=== PATIENT | female | born 1940 | race Caucasian/White ===

== ENCOUNTER → 2017-06-24 07:47 | Outpatient (CLI) | payer MEDICARE, SELFPAY ==
[2017-06-24 08:13] LABS: Basophils % 0.3 % (0.1-2.0); Eosinophils # 0.2 K/mm3 (0.0-0.4); Hematocrit 38.2 % (37.0-47.0); Hemoglobin 12.3 g/dL (12.2-16.2); Lymphocytes # 2.7 K/mm3 (0.7-4.5); Lymphocytes % 34.2 K/mm3 (10-50); Mean Corpuscular HGB Conc 32.1 g/dL (31.8-35.4); Mean Corpuscular Hemoglobin 31.5 pg (27.0-31.2); Monocytes # 0.5 K/mm3 (0.1-1.0); Monocytes % 6.3 % (1.7-9.3); Neutrophils # 4.4 K/mm3 (1.8-7.8); Neutrophils % 57.2 % (37.0-80.0); Platelet Count 268 K/mm3 (142-424); Red Cell Distribution Width 13.4 % (11.5-17.5); White Blood Count 7.7 K/mm3 (4.8-10.8)
[2017-06-24 10:32] LABS: Alanine Aminotransferase 27 U/L (12-78); Albumin Level 3.8 gm/dL (3.4-5.0); Albumin/Globulin Ratio 1.3 (1.1-1.8); Alkaline Phosphatase 91 U/L (46-116); Anion Gap 12.6 mEq/L (5-15); Aspartate Amino Transferase 17 U/L (15-37); Bilirubin,Total 1.5 mg/dL (0.2-1.0); Blood Urea Nitrogen 22 mg/dL (7-18); Calcium 8.9 mg/dL (8.5-10.1); Carbon Dioxide 27 mmol/L (21.0-32.0); Chloride 108 mmol/L (98-107); Chol/HDL Ratio 1.9 (1-3.5); Cholesterol 181 mg/dL (140-200); Creatinine,Serum 1.13 mg/dL (0.55-1.02); Estimated Glomerular Filt Rate 47 ml/min (>60); GFR (African American) 56 ML/MIN (>60); Glucose 84 mg/dL (74-106); HDL Cholesterol 96 mg/dL (29-89); LDL Cholesterol 67 mg/dL (0-130); Potassium 4.6 mmoL/L (3.5-5.1); Sodium 143 mmol/L (136-145); Thyroid Stimulating Hormone 1.26 uIU/ml (0.358-3.740); Total Protein,Serum 6.8 gm/dL (6.4-8.2); Triglycerides 91 mg/dL (30-200); VLDL Cholesterol 18 mg/dL (0-40)
== END ==
PROVIDERS: Visit Provider Family Medicine
DX: E03.9 Hypothyroidism, unspecified (principal); E78.2 Mixed hyperlipidemia; I10 Essential (primary) hypertension
CPT/HCPCS: 36415; 80053; 80061; 84443; 85025

== ENCOUNTER → 2017-12-23 08:03 | Outpatient (CLI) | payer MEDICARE, SELFPAY ==
[2017-12-23 08:47] LABS: Basophils % 0.5 % (0.1-2.0); Eosinophils # 0.1 K/mm3 (0.0-0.4); Eosinophils % 1.9 % (0.1-12.0); Hematocrit 36.7 % (37.0-47.0); Hemoglobin 11.8 g/dL (12.2-16.2); Lymphocytes # 2.6 K/mm3 (0.7-4.5); Lymphocytes % 37.8 K/mm3 (10-50); Mean Corpuscular Hemoglobin 31.7 pg (27.0-31.2); Monocytes # 0.4 K/mm3 (0.1-1.0); Monocytes % 6.5 % (1.7-9.3); Neutrophils # 3.7 K/mm3 (1.8-7.8); Neutrophils % 53.4 % (37.0-80.0); Platelet Count 288 K/mm3 (142-424); Red Blood Count 3.71 M/mm3 (4.20-5.40); Red Cell Distribution Width 13.4 % (11.5-17.5); White Blood Count 6.8 K/mm3 (4.8-10.8)
[2017-12-23 09:50] LABS: Alanine Aminotransferase 25 U/L (12-78); Albumin Level 3.9 gm/dL (3.4-5.0); Albumin/Globulin Ratio 1.3 (1.1-1.8); Alkaline Phosphatase 76 U/L (46-116); Anion Gap 12.4 mEq/L (5-15); Aspartate Amino Transferase 13 U/L (15-37); Bilirubin,Total 1.3 mg/dL (0.2-1.0); Blood Urea Nitrogen 30 mg/dL (7-18); Calcium 9.3 mg/dL (8.5-10.1); Carbon Dioxide 26 mmol/L (21.0-32.0); Chloride 108 mmol/L (98-107); Cholesterol 175 mg/dL (140-200); Creatinine,Serum 1.45 mg/dL (0.55-1.02); Estimated Glomerular Filt Rate 35 ml/min (>60); GFR (African American) 42 ML/MIN (>60); Globulin 2.9 gm/dl (1.3-3.2); Glucose 97 mg/dL (74-106); HDL Cholesterol 88 mg/dL (29-89); LDL Cholesterol 64 mg/dL (0-130); Potassium 4.4 mmoL/L (3.5-5.1); Sodium 142 mmol/L (136-145); Thyroid Stimulating Hormone 1.95 uIU/ml (0.358-3.740); Total Protein,Serum 6.8 gm/dL (6.4-8.2); Triglycerides 114 mg/dL (30-200); VLDL Cholesterol 23 mg/dL (0-40)
== END ==
PROVIDERS: PCP Family Medicine; Visit Provider Family Medicine
DX: E03.9 Hypothyroidism, unspecified (principal); E78.2 Mixed hyperlipidemia; I10 Essential (primary) hypertension
CPT/HCPCS: 36415; 80053; 80061; 84443; 85025

== ENCOUNTER → 2018-06-21 07:52 | Outpatient (CLI) | payer MEDICARE, SELFPAY ==
[2018-06-21 08:45] LABS: Alanine Aminotransferase 18 U/L (12-78); Albumin Level 3.6 gm/dL (3.4-5.0); Albumin/Globulin Ratio 1.5 (1.1-1.8); Alkaline Phosphatase 73 U/L (46-116); Anion Gap 12.9 mEq/L (5-15); Aspartate Amino Transferase 13 U/L (15-37); Bilirubin,Total 1.4 mg/dL (0.2-1.0); Blood Urea Nitrogen 25 mg/dL (7-18); Calcium 8.8 mg/dL (8.5-10.1); Carbon Dioxide 24 mmol/L (21.0-32.0); Chloride 103 mmol/L (98-107); Chol/HDL Ratio 2.2 (1-3.5); Cholesterol 164 mg/dL (140-200); Estimated Glomerular Filt Rate 36 ml/min (>60); GFR (African American) 44 ML/MIN (>60); Globulin 2.4 gm/dl (1.3-3.2); Glucose 96 mg/dL (74-106); HDL Cholesterol 73 mg/dL (29-89); LDL Cholesterol 71 mg/dL (0-130); Potassium 3.9 mmoL/L (3.5-5.1); Sodium 136 mmol/L (136-145); Triglycerides 99 mg/dL (30-200); VLDL Cholesterol 20 mg/dL (0-40)
[2018-06-21 09:11] LABS: Basophils % 0.4 % (0.1-2.0); Eosinophils # 0.1 K/mm3 (0.0-0.4); Eosinophils % 1.9 % (0.1-12.0); Hematocrit 37.4 % (37.0-47.0); Hemoglobin 12.4 g/dL (12.2-16.2); Lymphocytes # 1.9 K/mm3 (0.7-4.5); Lymphocytes % 29.7 % (10-50); Mean Corpuscular HGB Conc 33.1 g/dL (31.8-35.4); Mean Corpuscular Volume 96.9 fl (81-99); Mean Platelet Volume 7.7 fl (7.4-10.4); Monocytes # 0.3 K/mm3 (0.1-1.0); Monocytes % 4.7 % (1.7-9.3); Neutrophils # 4.1 K/mm3 (1.8-7.8); Neutrophils % 63.3 % (37.0-80.0); Platelet Count 266 K/mm3 (142-424); Red Blood Count 3.87 M/mm3 (4.20-5.40); Red Cell Distribution Width 13.3 % (11.5-17.5); White Blood Count 6.5 K/mm3 (4.8-10.8)
== END ==
PROVIDERS: Visit Provider Family Medicine
DX: I10 Essential (primary) hypertension (principal); E78.2 Mixed hyperlipidemia; E03.9 Hypothyroidism, unspecified
CPT/HCPCS: 36415; 80053; 80061; 84443; 85025

== ENCOUNTER → 2018-12-13 07:29 | Outpatient (CLI) | payer MEDICARE, SELFPAY ==
[2018-12-13 08:17] LABS: Basophils % 0.3 % (0.1-2.0); Eosinophils # 0.1 K/mm3 (0.0-0.4); Eosinophils % 2.1 % (0.1-12.0); Hematocrit 39.8 % (37.0-47.0); Hemoglobin 12.5 g/dL (12.2-16.2); Lymphocytes # 2.4 K/mm3 (0.7-4.5); Lymphocytes % 34.8 % (10-50); Mean Corpuscular HGB Conc 31.5 g/dL (31.8-35.4); Mean Corpuscular Hemoglobin 31.3 pg (27.0-31.2); Mean Corpuscular Volume 99.5 fl (81-99); Mean Platelet Volume 7.2 fl (7.4-10.4); Monocytes # 0.4 K/mm3 (0.1-1.0); Monocytes % 6.4 % (1.7-9.3); Neutrophils # 3.8 K/mm3 (1.8-7.8); Neutrophils % 56.4 % (37.0-80.0); Platelet Count 277 K/mm3 (142-424); Red Cell Distribution Width 13.6 % (11.5-17.5); White Blood Count 6.8 K/mm3 (4.8-10.8)
[2018-12-13 08:53] LABS: Alanine Aminotransferase 21 U/L (12-78); Albumin Level 3.8 gm/dL (3.4-5.0); Albumin/Globulin Ratio 1.3 (1.1-1.8); Alkaline Phosphatase 63 U/L (46-116); Anion Gap 13.7 mEq/L (5-15); Aspartate Amino Transferase 13 U/L (15-37); Bilirubin,Total 1.5 mg/dL (0.2-1.0); Blood Urea Nitrogen 23 mg/dL (7-18); Calcium 9.5 mg/dL (8.5-10.1); Carbon Dioxide 27 mmol/L (21.0-32.0); Chloride 108 mmol/L (98-107); Chol/HDL Ratio 2.1 (1-3.5); Cholesterol 174 mg/dL (140-200); Creatinine,Serum 1.23 mg/dL (0.55-1.02); Estimated Glomerular Filt Rate 42 ml/min (>60); GFR (African American) 51 ML/MIN (>60); Glucose 96 mg/dL (74-106); HDL Cholesterol 82 mg/dL (29-89); LDL Cholesterol 66 mg/dL (0-130); Potassium 4.7 mmoL/L (3.5-5.1); Sodium 144 mmol/L (136-145); Thyroid Stimulating Hormone 2.27 uIU/ml (0.358-3.740); Total Protein,Serum 6.8 gm/dL (6.4-8.2); Triglycerides 130 mg/dL (30-200); VLDL Cholesterol 26 mg/dL (0-40)
== END ==
PROVIDERS: Visit Provider Family Medicine
DX: I10 Essential (primary) hypertension (principal); E78.2 Mixed hyperlipidemia; E03.9 Hypothyroidism, unspecified
CPT/HCPCS: 36415; 80053; 80061; 84443; 85025

== ENCOUNTER → 2019-01-19 09:09 | Outpatient (CLI) | payer MEDICARE, SELFPAY ==
--- NOTE | 2019-01-19 09:11 | MM_ITS ---
PROCEDURE: MM DIG SCREENING MAMM BI W/CAD CLINICAL INDICATION: SCREENING There is no personal or family history of breast cancer. 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 R2 CAD reviewed. FINDINGS: Scattered fibroglandular densities are seen both breasts on a background of fatty breast parenchyma. There is a mole marker left breast. Again noted is a stable asymmetric glandular densities upper outer quadrant right breast. There are scattered benign-appearing microcalcifications in each breast. Some of these calcifications appear to be typical of secretory disease. There is no suspicious lesion and no suspicious microcalcifications. IMPRESSION: Stable fibrofatty parenchyma with no suspicious lesions seen BI-RAD Category: 2 Benign Finding(s) FOLLOW-UP: 1YR 1 Year Follow-up (A letter has been sent to the patient regarding results of the study.) Dictated by: Dr. Bryan Mahmood MD 01/23/2019 17:[address] Bryan Mahmood MD in [place] 01/23/2019 17:30
== END ==
PROVIDERS: PCP Family Medicine; Visit Provider Family Medicine
DX: Z12.31 Encounter for screening mammogram for malignant neoplasm of breast (principal)
CPT/HCPCS: 77067

== ENCOUNTER → 2019-01-23 09:27 | Outpatient (CLI) | payer MEDICARE, SELFPAY ==
--- NOTE | 2019-01-23 09:28 | XR_ITS ---
PROCEDURE: XR DEXA AXIAL SKELETON CLINICAL HISTORY: POST MENOPAUSAL SCREENING COMPARISON: No exams were available for comparison FINDINGS: Lumbar spine (L1 through L4), BMD 1.409, T-score 1.9. There is some false elevation of the bone density measurement at the L3 level likely from degenerative change. Right hip (neck), BMD is 0.891, T-score -1.1 IMPRESSION: Mild osteopenia. Dictated by: Trell Vicente 01/23/2019 12:07 Electronically signed by Trell Vicente in [place] 01/23/2019 12:07
== END ==
PROVIDERS: PCP Family Medicine; Visit Provider Family Medicine
DX: Z78.0 Asymptomatic menopausal state (principal)
CPT/HCPCS: 77080

== ENCOUNTER → 2019-06-15 07:29 | Outpatient (CLI) | payer MEDICARE, SELFPAY ==
[2019-06-15 10:10] LABS: Alanine Aminotransferase 16 U/L (12-78); Albumin/Globulin Ratio 1.5 (1.1-1.8); Alkaline Phosphatase 51 U/L (38-126); Anion Gap 10.2 mEq/L (5-15); Aspartate Amino Transferase 26 U/L (14-36); Bilirubin,Total 1.4 mg/dl (0.2-1.3); Blood Urea Nitrogen 30 mg/dl (7-17); Calcium 9.6 mg/dl (8.4-10.2); Carbon Dioxide 26 mmol/L (22.0-30.0); Chloride 106 mmol/L (98-107); Chol/HDL Ratio 1.8 (1-3.5); Cholesterol 168 mg/dl (140-200); Estimated Glomerular Filt Rate 43 ml/min (>60); GFR (African American) 52 ML/MIN (>60); Globulin 2.6 g/dL (1.3-3.2); Glucose 81 mg/dl (74-100); HDL Cholesterol 96 mg/dl (40-60); Potassium 4.2 mmoL/L (3.5-5.1); Sodium 138 mmol/L (136-145); Total Protein,Serum 6.6 g/dl (6.3-8.2); Triglycerides 79 mg/dl (30-150); VLDL Cholesterol 16 mg/dL (0-40)
[2019-06-15 10:40] LABS: Thyroid Stimulating Hormone 2.06 uIU/mL (0.465-4.68)
== END ==
PROVIDERS: Visit Provider Family Medicine
DX: E03.9 Hypothyroidism, unspecified (principal); E78.2 Mixed hyperlipidemia; I10 Essential (primary) hypertension
CPT/HCPCS: 36415; 80053; 80061; 84443

== ENCOUNTER → 2019-12-07 07:20 | Outpatient (CLI) | payer MEDICARE, SELFPAY ==
[2019-12-07 08:27] LABS: Chloride 108 mmol/L (98-107)
[2019-12-07 08:28] LABS: Potassium 4.5 mmoL/L (3.5-5.1); Sodium 141 mmol/L (136-145)
[2019-12-07 08:30] LABS: Alanine Aminotransferase 12 U/L (12-78); Albumin Level 3.8 g/dl (3.5-5.0); Albumin/Globulin Ratio 1.4 (1.1-1.8); Alkaline Phosphatase 57 U/L (38-126); Anion Gap 11.5 mEq/L (5-15); Aspartate Amino Transferase 21 U/L (14-36); Bilirubin,Total 1.3 mg/dl (0.2-1.3); Blood Urea Nitrogen 20 mg/dl (7-17); Carbon Dioxide 26 mmol/L (22.0-30.0); Estimated Glomerular Filt Rate 43 ml/min (>60); GFR (African American) 52 ML/MIN (>60); Globulin 2.7 g/dL (1.3-3.2); Total Protein,Serum 6.5 g/dl (6.3-8.2)
[2019-12-07 08:31] LABS: Calcium 9.7 mg/dl (8.4-10.2); Chol/HDL Ratio 2.3 (1-3.5); Cholesterol 203 mg/dl (140-200); Glucose 88 mg/dl (74-100); HDL Cholesterol 88 mg/dl (40-60); Triglycerides 132 mg/dl (30-150); VLDL Cholesterol 26 mg/dL (0-40)
[2019-12-07 08:43] LABS: Direct LDL Cholesterol 83.98 mg/dL (100-129)
[2019-12-07 09:03] LABS: Thyroid Stimulating Hormone 3.49 uIU/mL (0.465-4.68)
== END ==
PROVIDERS: Visit Provider Family Medicine
DX: E03.9 Hypothyroidism, unspecified (principal); E78.2 Mixed hyperlipidemia; I10 Essential (primary) hypertension
CPT/HCPCS: 36415; 80053; 80061; 84443

== ENCOUNTER → 2020-06-19 07:26 | Outpatient (CLI) | payer MEDICARE, SELFPAY ==
[2020-06-19 08:24] LABS: Chloride 109 mmol/L (98-107); Sodium 141 mmol/L (136-145)
[2020-06-19 08:25] LABS: Potassium 4.3 mmoL/L (3.5-5.1)
[2020-06-19 08:27] LABS: Alanine Aminotransferase 83 U/L (12-78); Albumin Level 4.3 g/dl (3.5-5.0); Albumin/Globulin Ratio 1.5 (1.1-1.8); Alkaline Phosphatase 107 U/L (38-126); Anion Gap 8.3 mEq/L (5-15); Aspartate Amino Transferase 77 U/L (14-36); Bilirubin,Total 1.6 mg/dl (0.2-1.3); Blood Urea Nitrogen 16 mg/dl (7-17); Carbon Dioxide 28 mmol/L (22.0-30.0); Cholesterol 180 mg/dl (140-200); Estimated Glomerular Filt Rate 43 ml/min (>60); GFR (African American) 52 ML/MIN (>60); Globulin 2.9 g/dL (1.3-3.2); Total Protein,Serum 7.2 g/dl (6.3-8.2); Triglycerides 161 mg/dl (30-150); VLDL Cholesterol 32 mg/dL (0-40)
[2020-06-19 08:28] LABS: Chol/HDL Ratio 1.9 (1-3.5); Glucose 101 mg/dl (74-100); HDL Cholesterol 93 mg/dl (40-60)
[2020-06-19 08:38] LABS: Direct LDL Cholesterol 47.47 mg/dL (100-129)
[2020-06-19 08:59] LABS: Thyroid Stimulating Hormone 2.73 uIU/mL (0.465-4.68)
== END ==
PROVIDERS: Visit Provider Family Medicine
DX: I10 Essential (primary) hypertension (principal); E03.9 Hypothyroidism, unspecified; E78.2 Mixed hyperlipidemia
CPT/HCPCS: 36415; 80053; 80061; 84443

== ENCOUNTER → 2020-12-05 07:30 | Outpatient (CLI) | payer MEDICARE, SELFPAY ==
[2020-12-05 07:46] LABS: Basophils # 0.1 K/mm3 (0-0.2); Basophils % 0.6 % (0.1-2.0); Eosinophils # 0.2 K/mm3 (0.0-0.4); Eosinophils % 1.9 % (0.1-12.0); Hematocrit 39.3 % (37.0-47.0); Hemoglobin 12.5 g/dL (12.2-16.2); Lymphocytes # 2.9 K/mm3 (0.7-4.5); Lymphocytes % 25.7 % (10-50); Mean Corpuscular HGB Conc 31.8 g/dL (31.8-35.4); Mean Corpuscular Hemoglobin 31.3 pg (27.0-31.2); Mean Corpuscular Volume 98.4 fl (81-99); Mean Platelet Volume 7.5 fl (7.4-10.4); Monocytes # 0.6 K/mm3 (0.1-1.0); Monocytes % 5.3 % (1.7-9.3); Neutrophils # 7.6 K/mm3 (1.8-7.8); Neutrophils % 66.6 % (37.0-80.0); Platelet Count 334 K/mm3 (142-424); Red Blood Count 3.99 M/mm3 (4.20-5.40); Red Cell Distribution Width 14.6 % (11.5-17.5); White Blood Count 11.4 K/mm3 (4.8-10.8)
[2020-12-05 08:48] LABS: Chloride 110 mmol/L (98-107); Potassium 4.4 mmoL/L (3.5-5.1); Sodium 142 mmol/L (136-145)
[2020-12-05 08:50] LABS: Alanine Aminotransferase 17 U/L (12-78); Aspartate Amino Transferase 25 U/L (14-36); Blood Urea Nitrogen 16 mg/dl (7-17); Estimated Glomerular Filt Rate 43 ml/min (>60); GFR (African American) 52 ML/MIN (>60)
[2020-12-05 08:51] LABS: Albumin Level 4.3 g/dl (3.5-5.0); Albumin/Globulin Ratio 1.6 (1.1-1.8); Alkaline Phosphatase 81 U/L (38-126); Anion Gap 10.4 mEq/L (5-15); Bilirubin,Total 1.5 mg/dl (0.2-1.3); Calcium 9.4 mg/dl (8.4-10.2); Carbon Dioxide 26 mmol/L (22.0-30.0); Chol/HDL Ratio 1.8 (1-3.5); Cholesterol 196 mg/dl (140-200); Globulin 2.7 g/dL (1.3-3.2); Glucose 99 mg/dl (74-100); HDL Cholesterol 106 mg/dl (40-60); Triglycerides 104 mg/dl (30-150); VLDL Cholesterol 21 mg/dL (0-40)
[2020-12-05 09:02] LABS: Direct LDL Cholesterol 65.25 mg/dL (100-129)
[2020-12-05 09:21] LABS: Thyroid Stimulating Hormone 2.49 uIU/mL (0.465-4.68)
== END ==
PROVIDERS: Visit Provider Family Medicine
DX: E03.9 Hypothyroidism, unspecified (principal); I10 Essential (primary) hypertension; E78.2 Mixed hyperlipidemia; N18.9 Chronic kidney disease, unspecified
CPT/HCPCS: 36415; 80053; 80061; 84443; 85025

== ENCOUNTER → 2021-06-06 07:39 | Outpatient (CLI) | payer MEDICARE, SELFPAY ==
[2021-06-06 09:05] LABS: Chloride 110 mmol/L (98-107); Potassium 4.5 mmoL/L (3.5-5.1); Sodium 136 mmol/L (136-145)
[2021-06-06 09:08] LABS: Alanine Aminotransferase 89 U/L (12-78); Albumin Level 4.4 g/dl (3.5-5.0); Albumin/Globulin Ratio 1.7 (1.1-1.8); Alkaline Phosphatase 126 U/L (38-126); Anion Gap 9.5 mEq/L (5-15); Aspartate Amino Transferase 184 U/L (14-36); Bilirubin,Total 1.8 mg/dl (0.2-1.3); Blood Urea Nitrogen 25 mg/dl (7-17); Calcium 8.9 mg/dl (8.4-10.2); Carbon Dioxide 21 mmol/L (22.0-30.0); Cholesterol 180 mg/dl (140-200); Estimated Glomerular Filt Rate 43 ml/min (>60); GFR (African American) 52 ML/MIN (>60); Globulin 2.6 g/dL (1.3-3.2); Glucose 88 mg/dl (74-100); Triglycerides 126 mg/dl (30-150); VLDL Cholesterol 25 mg/dL (0-40)
[2021-06-06 09:09] LABS: Chol/HDL Ratio 1.9 (1-3.5); HDL Cholesterol 94 mg/dl (40-60)
[2021-06-06 09:20] LABS: Direct LDL Cholesterol 68.54 mg/dL (100-129)
[2021-06-06 09:39] LABS: Thyroid Stimulating Hormone 1.11 uIU/mL (0.465-4.68)
== END ==
PROVIDERS: PCP Family Medicine; Visit Provider Family Medicine
DX: I10 Essential (primary) hypertension (principal); E03.9 Hypothyroidism, unspecified
CPT/HCPCS: 36415; 80053; 80061; 84443

== ENCOUNTER → 2021-06-16 07:42 | Outpatient (CLI) | payer MEDICARE, SELFPAY ==
--- NOTE | 2021-06-16 07:46 | US_ITS ---
FINAL REPORT CLINICAL HISTORY: ELEVATED LIVER FUNCTION TEST FINDINGS: Sonographic images of the right upper quadrant were obtained. The liver has an unremarkable appearance. The gallbladder is surgically absent. There is mild dilatation of the common duct measuring 9 mm. Increased echogenicity is seen within the renal parenchyma bilaterally likely due to medical renal disease. IMPRESSION: Dilated common bile duct likely related to age and post cholecystectomy change. Reviewed, Interpreted and Dictated by Jeff Villalobos MD Transcribed by Augusta Vásquez Authenticated by Jeff Villalobos MD on 06/16/2021 09:56:[address] [facility]
== END ==
PROVIDERS: PCP Family Medicine; Visit Provider Family Medicine
DX: R79.89 Other specified abnormal findings of blood chemistry (principal)
CPT/HCPCS: 76705

== ENCOUNTER → 2021-07-14 07:54 | Outpatient (CLI) | payer MEDICARE, SELFPAY ==
[2021-07-14 09:21] LABS: Alanine Aminotransferase 16 U/L (12-78); Alkaline Phosphatase 70 U/L (38-126); Aspartate Amino Transferase 29 U/L (14-36); Bilirubin,Direct 0.2 mg/dl (0.0-0.4); Bilirubin,Indirect 1.2 mg/dL (0.0-0.9); Bilirubin,Total 1.4 mg/dl (0.2-1.3); Bilirubin,Unconjugated 1.2 mg/dL (0.0-1.1)
[2021-07-14 09:22] LABS: Albumin Level 3.8 g/dl (3.5-5.0); Total Protein,Serum 6.3 g/dl (6.3-8.2)
== END ==
PROVIDERS: Visit Provider Family Medicine
DX: R79.89 Other specified abnormal findings of blood chemistry (principal)
CPT/HCPCS: 36415; 80076

== ENCOUNTER → 2021-12-08 07:29 | Outpatient (CLI) | payer MEDICARE, SELFPAY ==
[2021-12-08 08:04] LABS: Basophils # 0.1 K/mm3 (0-0.2); Basophils % 0.7 % (0.1-2.0); Eosinophils # 0.1 K/mm3 (0.0-0.4); Eosinophils % 1.9 % (0.1-12.0); Hematocrit 41.4 % (37.0-47.0); Hemoglobin 12.6 g/dL (12.2-16.2); Lymphocytes # 3.4 K/mm3 (0.7-4.5); Lymphocytes % 46.3 % (10-50); Mean Corpuscular HGB Conc 30.4 g/dL (31.8-35.4); Mean Corpuscular Hemoglobin 31.2 pg (27.0-31.2); Mean Corpuscular Volume 102.6 fl (81-99); Mean Platelet Volume 8.2 fl (7.4-10.4); Monocytes # 0.5 K/mm3 (0.1-1.0); Monocytes % 6.3 % (1.7-9.3); Neutrophils # 3.3 K/mm3 (1.8-7.8); Neutrophils % 44.8 % (37.0-80.0); Platelet Count 327 K/mm3 (142-424); Red Blood Count 4.04 M/mm3 (4.20-5.40); Red Cell Distribution Width 13.9 % (11.5-17.5); White Blood Count 7.3 K/mm3 (4.8-10.8)
[2021-12-08 08:28] LABS: Alanine Aminotransferase 15 U/L (12-78); Albumin Level 3.9 g/dl (3.5-5.0); Albumin/Globulin Ratio 1.4 (1.1-1.8); Alkaline Phosphatase 82 U/L (38-126); Anion Gap 8.6 mEq/L (5-15); Aspartate Amino Transferase 27 U/L (14-36); Blood Urea Nitrogen 24 mg/dl (7-17); Calcium 9.5 mg/dl (8.4-10.2); Carbon Dioxide 23 mmol/L (22.0-30.0); Chloride 112 mmol/L (98-107); Chol/HDL Ratio 3.5 (1-3.5); Cholesterol 252 mg/dl (140-200); Estimated Glomerular Filt Rate 43 ml/min (>60); GFR (African American) 52 ML/MIN (>60); Globulin 2.8 g/dL (1.3-3.2); Glucose 95 mg/dl (74-100); HDL Cholesterol 72 mg/dl (40-60); Potassium 4.6 mmoL/L (3.5-5.1); Sodium 139 mmol/L (136-145); Total Protein,Serum 6.7 g/dl (6.3-8.2); Triglycerides 165 mg/dl (30-150); VLDL Cholesterol 33 mg/dL (0-40)
[2021-12-08 08:58] LABS: Thyroid Stimulating Hormone 2.04 uIU/mL (0.465-4.68)
[2021-12-09 08:23] LABS: Direct LDL Cholesterol 142 mg/dL (100-129)
== END ==
PROVIDERS: PCP Family Medicine; Visit Provider Family Medicine
DX: E03.9 Hypothyroidism, unspecified (principal); I10 Essential (primary) hypertension; E78.2 Mixed hyperlipidemia
CPT/HCPCS: 36415; 80053; 80061; 82043; 84443; 85025

== ENCOUNTER → 2021-12-24 12:41 | Outpatient (CLI) | payer MEDICARE, SELFPAY ==
--- NOTE | 2021-12-24 13:05 | MM_ITS ---
PROCEDURE INFORMATION: Exam: MG Bilateral Screening 3D Mammography Exam date and time: 12/24/2021 12:59 PM Age: 81 years old Clinical indication: Screening examination TECHNIQUE: Imaging protocol: Bilateral Screening tomosynthesis and 2D mammography including computer-aided detection (CAD) when performed. COMPARISON: 1. MG MM DIG SCREENING MAMM BI W/CAD 01/19/2019 9:41 AM 2. MG DMSB DIG MAMM-SCREEN VLADIMIR 07/31/2014 9:55 AM 3. 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 MG DIGMAMMS MAMMOGRAM SCREEN-COTTON GRADER N/C 08/23/2006 10:14 AM FINDINGS: MAMMOGRAPHY: Breast composition: There are scattered areas of fibroglandular density. Mass: None. Architectural distortion: No new or suspicious architectural distortion. Calcifications: Stable benign-appearing calcifications are present. No new or suspicious cluster of microcalcifications have developed. Asymmetric density: No new or suspicious asymmetric density is present Skin thickening: None. Axillary adenopathy: None. IMPRESSION: No mammographic evidence of malignancy. Recommend annual screening mammography unless otherwise clinically indicated. ASSESSMENT: BI-RADS category 2: Benign
== END ==
PROVIDERS: PCP Family Medicine; Visit Provider Family Medicine
DX: Z12.31 Encounter for screening mammogram for malignant neoplasm of breast (principal)
CPT/HCPCS: 77063; 77067

== ENCOUNTER → 2022-06-01 07:46 | Outpatient (CLI) | payer MEDICARE, SELFPAY ==
[2022-06-01 09:59] LABS: Chloride 113 mmol/L (98-107); Potassium 4.2 mmoL/L (3.5-5.1); Sodium 143 mmol/L (136-145)
[2022-06-01 10:01] LABS: Blood Urea Nitrogen 15 mg/dl (7-17); Estimated Glomerular Filt Rate 47 ml/min (>60); GFR (African American) 57 ML/MIN (>60)
[2022-06-01 10:02] LABS: Alanine Aminotransferase 15 U/L (12-78); Albumin Level 4.1 g/dl (3.5-5.0); Albumin/Globulin Ratio 1.5 (1.1-1.8); Alkaline Phosphatase 72 U/L (38-126); Anion Gap 8.2 mEq/L (5-15); Aspartate Amino Transferase 26 U/L (14-36); Bilirubin,Total 1.1 mg/dl (0.2-1.3); Carbon Dioxide 26 mmol/L (22.0-30.0); Chol/HDL Ratio 2.8 (1-3.5); Cholesterol 212 mg/dl (140-200); Globulin 2.8 g/dL (1.3-3.2); Glucose 80 mg/dl (74-100); HDL Cholesterol 76 mg/dl (40-60); Total Protein,Serum 6.9 g/dl (6.3-8.2); Triglycerides 126 mg/dl (30-150); VLDL Cholesterol 25 mg/dL (0-40)
[2022-06-01 10:14] LABS: Direct LDL Cholesterol 88.38 mg/dL (100-129)
[2022-06-01 10:33] LABS: Thyroid Stimulating Hormone 2.06 uIU/mL (0.465-4.68)
== END ==
PROVIDERS: PCP Family Medicine; Visit Provider Family Medicine
DX: E03.9 Hypothyroidism, unspecified (principal); E78.2 Mixed hyperlipidemia; I10 Essential (primary) hypertension
CPT/HCPCS: 36415; 80053; 80061; 84443

== ENCOUNTER 2022-06-07 08:54 | Emergency (ER) | payer MEDICARE, SELFPAY ==
--- NOTE | 2022-06-07 09:09 | EXP.UTC ---
Discharge Plan Disposition Patient Disposition: Home, Self-Care Condition: Good Prescriptions Prescriptions: No Action levothyroxine 75 mcg tablet 75 mcg PO DAILY Label Comments: TAKE 1 TABLET BY MOUTH ONCE DAILY ezetimibe 10 mg tablet 10 mg PO DAILY Label Comments: TAKE 1 TABLET BY MOUTH ONCE DAILY amlodipine-valsartan 10-320 mg tablet 1 tab PO DAILY Label Comments: TAKE 1 TABLET BY MOUTH ONCE DAILY Referrals Follow up/Referrals: Britton Greene MD [Primary Care Provider] - See instructions Activity Restrictions/Add. Instructions Additional Instructions/Restrictions: Take tylenol for pain.. Follow up with your regular doctor. GO TO THE ER FOR ANY WORSENING SYMPTOMS Clinical Impressions Clinical Impression: Fall, Closed head injury Instructions Patient Instructions: Closed Head Injury Discharge ED Provider: Daniel Nguyen [facility] General Stated complaint: 06/07 0800, Headache,left side pain Time Seen by Provider: 06/07/22 09:09 History of Present Illness Provider Complaint: She states that she fell this morning. She came down and bumped the back of her head against her treadmill. She denies any loss of consciousness. Related Data Home Medications Medication Instructions Recorded Confirmed amlodipine 10 mg-valsartan 320 mg 1 tab PO DAILY . 06/07/22 06/07/22 tablet ezetimibe 10 mg tablet 10 mg PO DAILY . 06/07/22 06/07/22 levothyroxine 75 mcg tablet 75 mcg PO DAILY thyroid 06/07/22 06/07/22 Allergies Allergy/AdvReac Type Severity Reaction Status Date / Time Penicillins [PENICILLINS] Allergy Unknown I-RASH Verified 06/07/22 09:16 Sulfa (Sulfonamide Allergy Unknown UNKNOWN Verified 06/07/22 09:16 Antibiotics) [SULFA (SULFONAMIDE ANTIBIOTICS)] [facility] Disclaimer: The information contained in this section may have been updated after the patient was seen, as this information can be updated by other users. Social History Smoking Status: Never smoker alcohol intake: never current occupational status: employed Travel in the last 8 weeks: None ROS Obtained: Yes All systems reviewed & no additional complaints except as documented Constitutional Constitutional: Denies chills and Denies fever(s) Eyes Eyes: Denies eye discharge ENT Ears, Nose, Mouth, and Throat: Denies dizziness, Denies otalgia, Denies neck pain and Denies sore throat Cardiovascular Cardiovascular: Denies chest pain Respiratory Respiratory: Denies shortness of breath, Denies chest congestion, Denies cough, Denies stridor and Denies wheezing Gastrointestinal Gastrointestingal: Denies nausea or vomiting Musculoskeletal Musculoskeletal: Reports system reviewed and no additional complaints, except as documented, Denies arthralgias and Denies neck pain Integumentary/Breasts Skin/Breast: Denies rash Neurologic Neurologic: Reports as per HPI, Denies dizziness and Denies paresthesias Allergic/Immunologic Allergic/Immunologic: Denies wheezing Physical Exam General General appearance: alert and in no apparent distress Head Head exam: atraumatic, normocephalic and normal inspection Eye Eye exam: Present normal appearance, PERRL and EOMI ENT ENT exam: Present normal exam, normal oropharynx, mucous membranes moist, TM's normal bilaterally and normal external ear exam Neck Neck exam: Present normal inspection, full ROM and trachea midline; Absent meningismus or lymphadenopathy Chest Chest inspection: Present normal inspection and symmetric chest wall rise; Absent tenderness Respiratory Respiratory exam: Present normal lung sounds bilaterally; Absent respiratory distress Cardiovascular Cardiovascular exam: Present regular rate and normal rhythm; Absent JVD Abdominal Exam Abdominal exam: Present soft and normal bowel sounds; Absent distention, tenderness or guarding Extremities Exam Extremities exam: Pre
[2022-06-07 09:10] VITALS: BP 147/82; PULSE 91; RESP 20; TEMP 36.6; O2SAT 98; BMI 29.0
[2022-06-07 09:53] VITALS: BP 147/82; PULSE 91; RESP 20; TEMP 36.6; O2SAT 98
== END 2022-06-07 09:54 | disposition home or self-care (01) ==
PROVIDERS: Emergency Provider Nurse Practitioner Family; PCP Family Medicine
DX: S09.90XA Unspecified injury of head, initial encounter (principal); W18.39XA Other fall on same level, initial encounter
CPT/HCPCS: 99212; G0463

== ENCOUNTER → 2022-06-11 15:03 | Outpatient (CLI) | payer MEDICARE, SELFPAY ==
--- NOTE | 2022-06-11 15:12 | XR_ITS ---
FINAL REPORT CLINICAL HISTORY: PAIN from a fall FINDINGS: A PA view of the chest and oblique views of the left ribs were obtained. There is no prior exam for comparison. The cardiac and mediastinal silhouettes are within normal limits. The lungs are clear. There is no pneumothorax. Oblique views of the left ribs reveal no displaced rib fracture. IMPRESSION: No acute left rib fracture and no pneumothorax. Reviewed, Interpreted and Dictated by Rachel Wyman MD Transcribed by Basia Hamlin Authenticated and [facility]
--- NOTE | 2022-06-11 15:12 | XR_ITS ---
FINAL REPORT CLINICAL HISTORY: PAIN from a fall FINDINGS: AP and frog leg views of the left hip were obtained. There is no prior exam for comparison. There is no acute fracture or dislocation. There is degenerative disease of the hips bilaterally. Soft tissues are within normal limits. IMPRESSION: No acute osseous abnormality of the left hip. If pain persists, MR is recommended. Reviewed, Interpreted and Dictated by Rachel Wyman MD Transcribed by Basia Hamlin Authenticated and . [facility]
--- NOTE | 2022-06-11 15:12 | XR_ITS ---
FINAL REPORT CLINICAL HISTORY: PAIN from a fall FINDINGS: Left femur Two views were obtained. There is no acute fracture or dislocation. The joint spaces appear normal. Note is made of vascular calcification. No acute soft tissue abnormality is identified. IMPRESSION: No acute process. Reviewed, Interpreted and Dictated by Rachel Wyman MD Transcribed by Basia Hamlin Authenticated and [facility]
--- NOTE | 2022-06-11 15:12 | XR_ITS ---
FINAL REPORT CLINICAL HISTORY: PAIN from a fall FINDINGS: AP, lateral, and oblique views of the lumbar spine were obtained. There is no acute fracture or acute malalignment. Vertebral body height is preserved. There is multilevel degenerative disc disease, most pronounced at L1-2. No acute paraspinal abnormality is identified. IMPRESSION: No acute osseous abnormalities lumbar spine. Multilevel degenerative disc disease. Reviewed, Interpreted and Dictated by Rachel Wyman MD Transcribed by Basia Hamlin Authenticated and [facility]
== END ==
PROVIDERS: PCP Family Medicine; Visit Provider Physician Assistant
DX: R07.81 Pleurodynia (principal); M25.552 Pain in left hip; M79.652 Pain in left thigh; M54.50 Low back pain, unspecified
CPT/HCPCS: 71101; 72110; 73502; 73552

== ENCOUNTER → 2022-12-02 07:28 | Outpatient (CLI) | payer MEDICARE, SELFPAY ==
[2022-12-02 08:02] LABS: Basophils % 0.3 % (0.1-2.0); Eosinophils # 0.2 K/mm3 (0.0-0.4); Eosinophils % 1.9 % (0.1-12.0); Hemoglobin 12.2 g/dL (12.2-16.2); Lymphocytes % 35.6 % (10-50); Mean Corpuscular HGB Conc 31.3 g/dL (31.8-35.4); Mean Corpuscular Volume 99.1 fl (81-99); Mean Platelet Volume 7.8 fl (7.4-10.4); Monocytes # 0.6 K/mm3 (0.1-1.0); Monocytes % 6.6 % (1.7-9.3); Neutrophils # 4.7 K/mm3 (1.8-7.8); Neutrophils % 55.7 % (37.0-80.0); Platelet Count 299 K/mm3 (142-424); Red Blood Count 3.94 M/mm3 (4.20-5.40); Red Cell Distribution Width 13.8 % (11.5-17.5); White Blood Count 8.4 K/mm3 (4.8-10.8)
[2022-12-02 08:57] LABS: Alanine Aminotransferase 21 U/L (12-78); Albumin Level 3.7 g/dl (3.5-5.0); Albumin/Globulin Ratio 1.4 (1.1-1.8); Alkaline Phosphatase 68 U/L (38-126); Anion Gap 9.6 mEq/L (5-15); Aspartate Amino Transferase 25 U/L (14-36); Blood Urea Nitrogen 19 mg/dl (7-17); Calcium 9.2 mg/dl (8.4-10.2); Carbon Dioxide 25 mmol/L (22.0-30.0); Chloride 111 mmol/L (98-107); Chol/HDL Ratio 2.8 (1-3.5); Cholesterol 204 mg/dl (140-200); Estimated Glomerular Filt Rate 43 ml/min (>60); GFR (African American) 52 ML/MIN (>60); Globulin 2.6 g/dL (1.3-3.2); Glucose 88 mg/dl (74-100); HDL Cholesterol 74 mg/dl (40-60); Potassium 4.6 mmoL/L (3.5-5.1); Sodium 141 mmol/L (136-145); Total Protein,Serum 6.3 g/dl (6.3-8.2); Triglycerides 167 mg/dl (30-150); VLDL Cholesterol 33 mg/dL (0-40)
[2022-12-02 09:08] LABS: Direct LDL Cholesterol 87.57 mg/dL (100-129)
[2022-12-02 09:27] LABS: Thyroid Stimulating Hormone 2.32 uIU/mL (0.465-4.68)
== END ==
PROVIDERS: PCP Family Medicine; Visit Provider Family Medicine
DX: E78.2 Mixed hyperlipidemia (principal); E03.9 Hypothyroidism, unspecified; I10 Essential (primary) hypertension
CPT/HCPCS: 36415; 80053; 80061; 84443; 85025

== ENCOUNTER 2023-03-27 08:34 | Emergency (ER) | payer MEDICARE, SELFPAY ==
[2023-03-27 08:35] VITALS: BP 132/72; PULSE 98; RESP 18; TEMP 36.7; O2SAT 99; BMI 27.3
--- NOTE | 2023-03-27 08:41 | PC.NURSE ---
assisted pt to the bathroom to try to collect a urine sample. provided with supplies.
--- NOTE | 2023-03-27 08:47 | HMH.EDGENADL ---
Discharge Plan Disposition Patient Disposition: Home, Self-Care Prescriptions Prescriptions: New nitrofurantoin macrocrystal 100 mg capsule 100 mg PO BID 5 Days Qty: 10 0RF Rx Instructions: must administer with a meal/food No Action levothyroxine 75 mcg tablet 75 mcg PO DAILY Patient Comments: TAKE 1 TABLET BY MOUTH ONCE DAILY ezetimibe 10 mg tablet 10 mg PO DAILY Patient Comments: TAKE 1 TABLET BY MOUTH ONCE DAILY amlodipine-valsartan 10-320 mg tablet 1 tab PO DAILY Patient Comments: TAKE 1 TABLET BY MOUTH ONCE DAILY Referrals Follow up/Referrals: Britton Greene MD [Primary Care Provider] - See instructions Activity Restrictions/Add. Instructions Additional Instructions/Restrictions: Please take Macrobid as prescribed for treatment of urinary tract infection. Please follow-up with your primary care provider. Please return to the emergency department if you develop any new or worsening symptoms or become concerned for your health. Clinical Impressions Clinical Impression: Urinary tract infection Qualifiers: Urinary tract infection type: acute cystitis Hematuria presence: with hematuria Qualified Code(s): N30.01 - Acute cystitis with hematuria Instructions Patient Instructions: DI for Urinary Tract Infection (UTI), DI for Urinary Tract Infection in Children Discharge ED Provider: Zeke Abdalla Adult HPI General Chief complaint: Urogenital-Female Stated complaint: pain when urinates Time Seen by Provider: 03/27/23 08:37 Mode of Arrival: Ambulatory Source of Information: Patient Limitations: No Limitations Description of Symptoms (Recalled from ER Triage Doc. by RN): pt reports burning with urination and trouble going when she does go that started last night, denies blood in urine, denies abdominal or flank pain History of Present Illness HPI narrative: 82-year-old female history of hypertension hyperlipidemia presents with 1 day of burning with urination. Denies any flank pain. Denies any fevers at home. Denies any other concerning symptoms. Reports her last UTI was many years ago. Denies any vaginal discharge itching or irritation. Related Data Home Medications Medication Instructions Recorded Confirmed amlodipine 10 mg-valsartan 320 mg 1 tab PO DAILY . 06/07/22 03/27/23 tablet ezetimibe 10 mg tablet 10 mg PO DAILY . 06/07/22 03/27/23 levothyroxine 75 mcg tablet 75 mcg PO DAILY thyroid 06/07/22 03/27/23 Previous Rx's Medication Instructions Recorded nitrofurantoin macrocrystal 100 mg 100 mg PO BID 5 days #10 caps 03/27/23 capsule Allergies Allergy/AdvReac Type Severity Reaction Status Date / Time Penicillins [PENICILLINS] Allergy Unknown I-RASH Verified 03/27/23 08:46 Sulfa (Sulfonamide Allergy Unknown UNKNOWN Verified 03/27/23 08:46 Antibiotics) [SULFA (SULFONAMIDE ANTIBIOTICS)] [facility] Disclaimer: The information contained in this section may have been updated after the patient was seen, as this information can be updated by other users. Social History (Updated 06/07/22 @ 12:34 by Daniel Nguyen APRN) Smoking Status: Never smoker alcohol intake: never current occupational status: employed Travel in the last 8 weeks: None ROS Obtained: Yes All systems reviewed & no additional complaints except as documented Physical Exam General General appearance: alert and in no apparent distress Head Head exam: atraumatic and normocephalic Eye Eye exam: Present normal appearance, PERRL and EOMI ENT ENT exam: Present normal oropharynx and normal external ear exam Neck Neck exam: Present normal inspection and full ROM Chest Chest inspection: Present normal inspection and symmetric chest wall rise; Absent tenderness Respiratory Respiratory exam: Present normal lung sounds bilaterally; Absent respiratory distress Cardiovascular Cardiovascular exam: Present regular rate and normal rhythm
[2023-03-27 08:48] LABS: Microscopic, Urine URINE MICROSCOPIC (MICROSCOPIC)
[2023-03-27 08:50] LABS: Appearance,Urine CLEAR (Clear); Bilirubin,Urine Negative (Negative); Blood, Urine 2+ (Negative); Color,Urine YELLOW (Yellow); Glucose,Urine (UA) Negative (Negative); Ketones,Urine Negative (Negative); Leukocyte Esterase,Urine 2+ (Negative); Nitrate,Urine POSITIVE (Negative); Protein,Urine 1+ (Negative); Specific Gravity, Urine 1.025 (1.005-1.030); Urobilinogen,Urine 0.2 EU/dl (0.2)
--- NOTE | 2023-03-27 08:53 | PC.NURSE ---
Dr. Abdalla at for pt eval
[2023-03-27 09:00] VITALS: BP 99/47; PULSE 89; RESP 16; O2SAT 98
[2023-03-27 09:14] LABS: Bacteria,Urine Trace /lpf; Squamous Epithelial Cell,Urine Occasional #/hpf (0-5); WBC,Urine 20-50 #/hpf (0-3)
[2023-03-27 09:25] VITALS: BP 115/66; PULSE 72; RESP 18; TEMP 36.4; O2SAT 99
--- NOTE | 2023-04-03 13:59 | PC.NURSE ---
urine culture results show escherichia coli, pt DC on nitrofurantion, no further action per
== END 2023-03-27 09:26 | disposition home or self-care (01) ==
PROVIDERS: Emergency Provider Emergency Medicine; PCP Family Medicine
DX: N30.01 Acute cystitis with hematuria (principal); E78.5 Hyperlipidemia, unspecified; I10 Essential (primary) hypertension
CPT/HCPCS: 81001; 87086; 99283

== ENCOUNTER 2023-05-25 07:31 | Outpatient (CLI) | payer MEDICARE, SELFPAY ==
[2023-05-25 08:12] LABS: Basophils # 0.1 K/mm3 (0-0.2); Basophils % 0.7 % (0.1-2.0); Eosinophils # 0.1 K/mm3 (0.0-0.4); Eosinophils % 1.7 % (0.1-12.0); Hematocrit 40.8 % (37.0-47.0); Hemoglobin 13.1 g/dL (12.2-16.2); Lymphocytes # 2.9 K/mm3 (0.7-4.5); Mean Corpuscular HGB Conc 32.2 g/dL (31.8-35.4); Mean Corpuscular Hemoglobin 31.9 pg (27.0-31.2); Mean Corpuscular Volume 99.1 fl (81-99); Mean Platelet Volume 7.6 fl (7.4-10.4); Monocytes # 0.5 K/mm3 (0.1-1.0); Monocytes % 6.5 % (1.7-9.3); Neutrophils # 4.4 K/mm3 (1.8-7.8); Platelet Count 296 K/mm3 (142-424); Red Blood Count 4.12 M/mm3 (4.20-5.40); Red Cell Distribution Width 14.1 % (11.5-17.5)
[2023-05-25 08:25] LABS: Alanine Aminotransferase 24 U/L (12-78); Albumin Level 4.1 g/dl (3.5-5.0); Albumin/Globulin Ratio 1.6 (1.1-1.8); Alkaline Phosphatase 94 U/L (38-126); Anion Gap 10.2 mEq/L (5-15); Aspartate Amino Transferase 25 U/L (14-36); Blood Urea Nitrogen 15 mg/dl (7-17); Calcium 9.6 mg/dl (8.4-10.2); Carbon Dioxide 23 mmol/L (22.0-30.0); Chloride 111 mmol/L (98-107); Chol/HDL Ratio 2.6 (1-3.5); Cholesterol 221 mg/dl (140-200); Estimated Glomerular Filt Rate 43 ml/min (>60); GFR (African American) 52 ML/MIN (>60); Globulin 2.6 g/dL (1.3-3.2); Glucose 90 mg/dl (74-100); HDL Cholesterol 86 mg/dl (40-60); Potassium 4.2 mmoL/L (3.5-5.1); Sodium 140 mmol/L (136-145); Total Protein,Serum 6.7 g/dl (6.3-8.2); Triglycerides 122 mg/dl (30-150); VLDL Cholesterol 24 mg/dL (0-40)
[2023-05-25 08:36] LABS: Direct LDL Cholesterol 93.73 mg/dL (100-129)
[2023-05-25 08:55] LABS: Thyroid Stimulating Hormone 1.23 uIU/mL (0.465-4.68)
== END 2023-05-25 23:59 ==
LOC: LAB 07:32
PROVIDERS: PCP Family Medicine; Visit Provider Family Medicine
DX: E03.9 Hypothyroidism, unspecified (principal); E78.2 Mixed hyperlipidemia; I10 Essential (primary) hypertension
CPT/HCPCS: 36415; 80053; 80061; 84443; 85025

== ENCOUNTER 2023-11-19 07:25 | Outpatient (CLI) | payer MEDICARE, SELFPAY ==
[2023-11-19 09:45] LABS: Alanine Aminotransferase 11 U/L (12-78); Albumin Level 3.8 g/dl (3.5-5.0); Albumin/Globulin Ratio 1.3 (1.1-1.8); Alkaline Phosphatase 81 U/L (38-126); Anion Gap 9.2 mEq/L (5-15); Aspartate Amino Transferase 22 U/L (14-36); Bilirubin,Total 1.3 mg/dl (0.2-1.3); Blood Urea Nitrogen 19 mg/dl (7-17); Calcium 9.7 mg/dl (8.4-10.2); Carbon Dioxide 24 mmol/L (22.0-30.0); Chloride 110 mmol/L (98-107); Chol/HDL Ratio 2.5 (1-3.5); Cholesterol 226 mg/dl (140-200); Estimated Glomerular Filt Rate 43 ml/min (>60); GFR (African American) 52 ML/MIN (>60); Globulin 2.9 g/dL (1.3-3.2); Glucose 87 mg/dl (74-100); HDL Cholesterol 90 mg/dl (40-60); Potassium 4.2 mmoL/L (3.5-5.1); Sodium 139 mmol/L (136-145); Total Protein,Serum 6.7 g/dl (6.3-8.2); Triglycerides 108 mg/dl (30-150); VLDL Cholesterol 22 mg/dL (0-40)
[2023-11-19 09:56] LABS: Direct LDL Cholesterol 91.82 mg/dL (100-129)
[2023-11-19 10:16] LABS: Thyroid Stimulating Hormone 1.54 uIU/mL (0.465-4.68)
== END 2023-11-19 23:59 | disposition home or self-care (01) ==
LOC: LAB 07:27
PROVIDERS: PCP Family Medicine; Visit Provider Family Medicine
DX: E78.5 Hyperlipidemia, unspecified (principal); I10 Essential (primary) hypertension; E03.9 Hypothyroidism, unspecified
CPT/HCPCS: 36415; 80053; 80061; 84443

== ENCOUNTER 2024-02-13 22:14 | Inpatient (IN) | payer MEDICARE, SELFPAY ==
[2024-02-13 22:14] VITALS: BP 169/83; PULSE 89; RESP 18; TEMP 36.8; O2SAT 98; BMI 28.1
--- NOTE | 2024-02-13 22:17 | XR_ITS ---
PROCEDURE INFORMATION: Exam: XR Right Hip Exam date and time: 02/13/2024 10:18 PM Age: 83 years old Clinical indication: Injury or trauma; Fall; Blunt trauma (contusions or hematomas); Right; Hip; Additional info: Fall right hip pain TECHNIQUE: Imaging protocol: Radiologic exam of the right hip. Views: 2 or 3 views hip with pelvis when performed. COMPARISON: CR XR HIP RT 2-3V W/PELVIS 02/13/2024 10:18 PM FINDINGS: Bones/joints: Mildly displaced right femoral intratrochanteric fracture. No dislocation. Degenerative changes of right knee. Degenerative changes of both hips and sacroiliac joints. Soft tissues: Unremarkable. IMPRESSION: Right femoral intratrochanteric fracture.
--- NOTE | 2024-02-13 22:17 | XR_ITS ---
PROCEDURE INFORMATION: Exam: XR Right Femur Exam date and time: 02/13/2024 10:18 PM Age: 83 years old Clinical indication: Injury or trauma; Fall; Blunt trauma; Hip; Right; Additional info: Fall right hip pain TECHNIQUE: Imaging protocol: Radiologic exam of the right femur. Views: 2 views. COMPARISON: CR XR HIP RT 2-3V W/PELVIS 02/13/2024 10:18 PM FINDINGS: Bones/joints: Mildly displaced right femoral intratrochanteric fracture. No dislocation. Degenerative changes of visualized knee. Soft tissues: Unremarkable. IMPRESSION: Right femoral intratrochanteric fracture.
--- NOTE | 2024-02-13 22:17 | HMH.EDGENADL ---
Discharge Plan Disposition Patient Disposition: Admitted Condition: Good Clinical Impressions Clinical Impression: Closed intertrochanteric fracture of right femur Qualifiers: Encounter type: initial encounter Fracture alignment: nondisplaced Qualified Code(s): S72.144A - Nondisplaced intertrochanteric fracture of right femur, initial encounter for closed fracture Discharge ED Provider: Ziggy Conrad General Adult HPI <JOSE MARIA Geronimo - Last Filed: 02/13/24 22:53> General Chief complaint: Fall Stated complaint: fall, R hip pain Time Seen by Provider: 02/13/24 22:16 History of Present Illness HPI narrative: Patient presents for evaluation of right hip pain after a fall. Patient had a ground-level fall in her kitchen after accidentally tripping. She landed on her right side and was unable to arise without assistance. Patient denies any other injury loss of consciousness chest pain shortness of breath fever chills hemoptysis hematochezia melena nausea vomit diarrhea. Related Data Home Medications ?Medication ?Instructions ?Recorded ?Confirmed amlodipine 10 mg-valsartan 320 mg 1 tab PO DAILY 06/07/22 02/13/24 tablet ezetimibe 10 mg tablet 10 mg PO DAILY 06/07/22 02/13/24 levothyroxine 75 mcg tablet 75 mcg PO DAILY 06/07/22 02/13/24 B-complex with vitamin C 1 tab PO DAILY 02/13/24 02/14/24 diphenoxylate-atropine 2.5 1 - 2 tab PO QID PRN Stomach Upset 02/13/24 02/13/24 mg-0.025 mg tablet Allergies Allergy/AdvReac Type Severity Reaction Status Date / Time Penicillins [PENICILLINS] Allergy Unknown I-RASH Verified 03/27/23 08:46 Sulfa (Sulfonamide Allergy Unknown UNKNOWN Verified 03/27/23 08:46 Antibiotics) [SULFA (SULFONAMIDE ANTIBIOTICS)] PFSH <JOSE MARIA Geronimo - Last Filed: 02/13/24 22:53> [facility] Disclaimer: The information contained in this section may have been updated after the patient was seen, as this information can be updated by other users. Medical History (Updated 02/14/24 @ 08:46 by Basia Mcghee APRN) Hypertension Hyperlipemia Surgical History (Updated 02/14/24 @ 08:30 by Basia Mcghee APRN) History of cataract surgery History of appendectomy History of cholecystectomy Family History (Updated 02/14/24 @ 00:22 by Natasha Garcia RN) Other Family history of cancer Family history of cardiomyopathy Social History (Updated 02/14/24 @ 10:29 by Nica Vargas CRNA) Smoking Status: Never smoker alcohol intake: never substance use type: denies use current occupational status: employed and retired Travel in the last 8 weeks: None <JOSE MARIA Geronimo - Last Filed: 02/13/24 22:53> ROS Obtained: Yes Systems reviewed as appropriate & no additional complaints except as documented Physical Exam <JOSE MARIA Geronimo - Last Filed: 02/13/24 22:53> General General appearance: alert and in no apparent distress Respiratory Respiratory exam: Present normal lung sounds bilaterally Cardiovascular Cardiovascular exam: Present regular rate Neurological Exam Neurological exam: Present alert and oriented X3 Medical Decision Making <JOSE MARIA Geronimo - Last Filed: 02/13/24 22:53> Medical Records Medical records reviewed: Yes I reviewed the patient's medical records. Screening: Per USPSTF and CDC recommendations, given the prevalence of disease in our region, it is our hospital?s policy to screen for HIV and viral Hepatitis for all patients aged 18 and over and those with ongoing risk factors. Raghav Inquiry Pt receiving controlled substance: No Vital Signs: 02/13/24 22:14 02/13/24 23:12 Temperature 98.3 F 98.3 F Temperature Source Oral Oral Pulse Rate 92 H Pulse Rate [Right] 89 Respiratory Rate 18 20 Blood Pressure 171/96 H Blood Pressure [Right Arm] 169/83 H Blood Pressure Mean [Right Arm] 111 02 Sat by Pulse Oximetry 98 Oxygen Delivery Method Room Air Lab Data Lab results reviewed: Yes I reviewed the patient's lab results. Lab Results 02/13/24 05:49: HIV 1&2 Antibody Rapid Nonreactive 02/13/24 21:48: WBC 10.7, RBC 4.26, Hgb 13.5, Hct 40.7, MCV 95.5, MCH 31.8 H, MCHC 33.3, RDW 15.9, Plt Count 344, MPV 7.6, Neut % (Auto) 52.1, Lymph % (Auto) 42.0, [place] % (Auto) 4.8, Eos % (Auto) 0.4, Baso % (Auto) 0.7, Neut # (Auto) 5.6, Lymph # (Auto) 4.5, [place] # (Auto) 0.5, Eos # (Auto) 0.1, Baso # (Auto) 0.1, PT 10.5, INR 0.93, Sodium 140, Potassium 3.7, Chloride 108 H, Carbon Dioxide 27, Anion Gap 8.7, BUN 19 H, Creatinine 1.10 H, Estimated Creat Clear 39, Estimated GFR 47 L, Est GFR ( Amer) 57 L, Glucose 135 H, Calcium 9.3, Total Bilirubin 0.9, AST 40 H, ALT 56, Alkaline Phosphatase 96, Total Protein 7.6, Albumin 4.3, Globulin 3.3 H, Albumin/Globulin Ratio 1.3 02/13/24 21:48 02/13/24 21:48 Orders (Tests/Meds): ED MEDICATIONS Generic Name Dose Route Start Last Admin Trade Name Rylee PRN Reason Stop Dose Admin Aspirin 81 mg 02/14/24 21:00 02/14/24 20:01 Aspirin 81mg Chewable Tablet PO 03/15/24 20:59 81 mg BID KEMLA Administration Ezetimibe 10 mg 02/15/24 09:00 Ezetimibe 10mg Tablet PO 03/16/24 08:59 DAILY KEMAL Sodium Chloride 1,000 mls @ 50 mls/hr 02/13/24 23:45 02/14/24 20:01 Sod Chlor 0.9% 1000ml Bag IV 03/14/24 22:59 Not Given .Q20H KEMAL Clindamycin Phosphate 900 mg in 50 mls @ 100 mls/hr 02/14/24 18:00 02/14/24 17:28 Clindamycin 900mg/50ml D5w Premix IV 02/15/24 02:29 100 mls/hr Q8H KEMLA Administration Irbesartan 75 mg 02/15/24 09:00 Irbesartan 75mg Tablet PO 03/16/24 08:59 DAILY KEMAL Levothyroxine Sodium 75 mcg 02/15/24 09:00 Levothyroxine 75mcg (0.075mg) Tab PO 03/16/24 08:59 DAILY KEMAL Morphine Sulfate 2 mg 02/14/24 00:49 02/14/24 15:17 Morphine 2mg/Ml Syringe IV 03/15/24 00:48 2 mg Q3HP PRN Administration SEVERE PAIN (7-10) Oxycodone/Acetaminophen 1 each 02/14/24 15:15 02/14/24 20:02 Oxycodone 5mg W/Apap 325mg Tablet PO 03/15/24 15:14 1 each Q4HP PRN Administration Moderate to Severe Pain (4-10) Sodium Chloride 10 ml 02/14/24 07:38 Sodium Chloride 0.9% 10ml Flush Syringe IV 03/15/24 07:37 NEEDED PRN Maintain IV Site Discontinued Medications Generic Name Dose Route Start Last Admin Trade Name Freq PRN Reason Stop Dose Admin Acetaminophen 1,000 mg 02/13/24 22:17 02/13/24 22:23 Acetaminophen 500mg Tab PO 02/13/24 22:18 1,000 mg ONCE ONE Administration Acetaminophen 650 mg 02/13/24 22:54 Acetaminophen 325mg Tab PO 03/14/24 22:53 Q6HP PRN Fever or Mild Pain (1-3) Acetaminophen 650 mg 02/13/24 23:45 Acetaminophen 325mg Tab PO 03/14/24 22:53 Q6HP PRN Fever or Mild Pain (1-3) Hydromorphone HCl 0.2 mg 02/14/24 12:36 Hydromorphone 2mg/Ml Syringe IV 02/14/24 14:37 [id number] PRN Severe Pain (7-10) Sodium Chloride 1,000 mls @ 50 mls/hr 02/13/24 23:00 02/14/24 01:23 Sod Chlor 0.9% 1000ml Bag IV 03/14/24 22:59 Not Given .Q20H KEMAL Clindamycin Phosphate 900 mg in 50 mls @ 100 mls/hr 02/14/24 10:45 02/14/24 10:36 Clindamycin 900mg/50ml D5w Premix IV 02/14/24 11:14 100 mls/hr ONCE ONE Administration Morphine Sulfate 1 mg 02/14/24 12:36 Morphine 2mg/Ml Syringe IV 02/14/24 14:37 [id number] PRN Mild Pain (1-3) Naloxone HCl 0.4 mg 02/14/24 12:36 Naloxone 0.4mg/Ml Vial IV 02/14/24 14:37 Q3MINP PRN Decreased Respirations Oxycodone HCl 5 mg 02/13/24 22:17 02/13/24 22:23 Oxycodone 5mg Immediate Release Tablet PO 02/13/24 22:18 5 mg ONCE ONE Administration ORDERS Category Date Time Status Femur XR right 2 views [XR femur RT 2V] Stat Exams 02/13/24 22:17 Completed Hip XR right minimum 2 views [XR hip RT 2-3V w/pelvis] Exams 02/13/24 22:17 Completed Stat CBC w/Auto Diff [Complete Blood Count Auto Diff] Stat Lab 02/13/24 21:48 Completed CMP [Comprehensive Metabolic Panel] Stat Lab 02/13/24 21:48 Completed HIV (1&2) Antibody Rapid Stat Lab 02/13/24 05:49 Completed Hep C Ab with Reflex to RNA Stat Lab 02/13/24 05:49 Received INR [Prothrombin Time INR] Stat Lab 02/13/24 21:48 Completed Medical Decision Narrative: In summary patient is a 83-year-old female who presents to the emergency department for evaluation of right hip pain after a fall. Patient is hemodynamically stable upon arrival, afebrile. Physical exam is remarkable for tenderness at the right hip with the right leg foreshortened but neurovascularly intact distally. No visible trauma noted including ecchymosis abrasions or edema. No palpable bony deformity felt. Differential diagnosis includes contusion versus fracture of hip and/or pelvis. Initial workup will be conducted with plain film x-rays hematologic labs. Initial interventions include acetaminophen oxycodone. Initial workup reviewed by me shows she has a right intertrochanteric fracture via my informal interpretation of her imaging. Given this I had interactive discussion with hospital medicine about patient management and she will be admitted for further evaluation and care and orthopedic evaluation in the morning. <Ziggy Conrad MD - Last Filed: 02/14/24 21:16> Vital Signs: 02/13/24 22:14 02/13/24 23:12 Temperature 98.3 F 98.3 F Temperature Source Oral Oral Pulse Rate 92 H Pulse Rate [Right] 89 Respiratory Rate 18 20 Blood Pressure 171/96 H Blood Pressure [Right Arm] 169/83 H Blood Pressure Mean [Right Arm] 111 02 Sat by Pulse Oximetry 98 Oxygen Delivery Method Room Air Lab Data Lab Results 02/13/24 05:49: HIV 1&2 Antibody Rapid Nonreactive 02/13/24 21:48: WBC 10.7, RBC 4.26, Hgb 13.5, Hct 40.7, MCV 95.5, MCH 31.8 H, MCHC 33.3, RDW 15.9, Plt Count 344, MPV 7.6, Neut % (Auto) 52.1, Lymph % (Auto) 42.0, [place] % (Auto) 4.8, Eos % (Auto) 0.4, Baso % (Auto) 0.7, Neut # (Auto) 5.6, Lymph # (Auto) 4.5, [place] # (Auto) 0.5, Eos # (Auto) 0.1, Baso # (Auto) 0.1, PT 10.5, INR 0.93, Sodium 140, Potassium 3.7, Chloride 108 H, Carbon Dioxide 27, Anion Gap 8.7, BUN 19 H, Creatinine 1.10 H, Estimated Creat Clear 39, Estimated GFR 47 L, Est GFR ( Amer) 57 L, Glucose 135 H, Calcium 9.3, Total Bilirubin 0.9, AST 40 H, ALT 56, Alkaline Phosphatase 96, Total Protein 7.6, Albumin 4.3, Globulin 3.3 H, Albumin/Globulin Ratio 1.3 Orders (Tests/Meds): ED MEDICATIONS Generic Name Dose Route Start Last Admin Trade Name Darnellq PRN Reason Stop Dose Admin Aspirin 81 mg 02/14/24 21:00 02/14/24 20:01 Aspirin 81mg Chewable Tablet PO 03/15/24 20:59 81 mg BID KEMAL Administration Ezetimibe 10 mg 02/15/24 09:00 Ezetimibe 10mg Tablet PO 03/16/24 08:59 DAILY KEMAL Sodium Chloride 1,000 mls @ 50 mls/hr 02/13/24 23:45 02/14/24 20:01 Sod Chlor 0.9% 1000ml Bag IV 03/14/24 22:59 Not Given .Q20H KEMAL Clindamycin Phosphate 900 mg in 50 mls @ 100 mls/hr 02/14/24 18:00 02/14/24 17:28 Clindamycin 900mg/50ml D5w Premix IV 02/15/24 02:29 100 mls/hr Q8H KEMAL Administration Irbesartan 75 mg 02/15/24 09:00 Irbesartan 75mg Tablet PO 03/16/24 08:59 DAILY KEMAL Levothyroxine Sodium 75 mcg 02/15/24 09:00 Levothyroxine 75mcg (0.075mg) Tab PO 03/16/24 08:59 DAILY KEMAL Morphine Sulfate 2 mg 02/14/24 00:49 02/14/24 15:17 Morphine 2mg/Ml Syringe IV 03/15/24 00:48 2 mg Q3HP PRN Administration SEVERE PAIN (7-10) Oxycodone/Acetaminophen 1 each 02/14/24 15:15 02/14/24 20:02 Oxycodone 5mg W/Apap 325mg Tablet PO 03/15/24 15:14 1 each Q4HP PRN Administration Moderate to Severe Pain (4-10) Sodium Chloride 10 ml 02/14/24 07:38 Sodium Chloride 0.9% 10ml Flush Syringe IV 03/15/24 07:37 NEEDED PRN Maintain IV Site Discontinued Medications Generic Name Dose Route Start Last Admin Trade Name Freq PRN Reason Stop Dose Admin Acetaminophen 1,000 mg 02/13/24 22:17 02/13/24 22:23 Acetaminophen 500mg Tab PO 02/13/24 22:18 1,000 mg ONCE ONE Administration Acetaminophen 650 mg 02/13/24 22:54 Acetaminophen 325mg Tab PO 03/14/24 22:53 Q6HP PRN Fever or Mild Pain (1-3) Acetaminophen 650 mg 02/13/24 23:45 Acetaminophen 325mg Tab PO 03/14/24 22:53 Q6HP PRN Fever or Mild Pain (1-3) Hydromorphone HCl 0.2 mg 02/14/24 12:36 Hydromorphone 2mg/Ml Syringe IV 02/14/24 14:37 [id number] PRN Severe Pain (7-10) Sodium Chloride 1,000 mls @ 50 mls/hr 02/13/24 23:00 02/14/24 01:23 Sod Chlor 0.9% 1000ml Bag IV 03/14/24 22:59 Not Given .Q20H KEMAL Clindamycin Phosphate 900 mg in 50 mls @ 100 mls/hr 02/14/24 10:45 02/14/24 10:36 Clindamycin 900mg/50ml D5w Premix IV 02/14/24 11:14 100 mls/hr ONCE ONE Administration Morphine Sulfate 1 mg 02/14/24 12:36 Morphine 2mg/Ml Syringe IV 02/14/24 14:37 [id number] PRN Mild Pain (1-3) Naloxone HCl 0.4 mg 02/14/24 12:36 Naloxone 0.4mg/Ml Vial IV 02/14/24 14:37 Q3MINP PRN Decreased Respirations Oxycodone HCl 5 mg 02/13/24 22:17 02/13/24 22:23 Oxycodone 5mg Immediate Release Tablet PO 02/13/24 22:18 5 mg ONCE ONE Administration ORDERS Category Date Time Status Femur XR right 2 views [XR femur RT 2V] Stat Exams 02/13/24 22:17 Completed Hip XR right minimum 2 views [XR hip RT 2-3V w/pelvis] Exams 02/13/24 22:17 Completed Stat CBC w/Auto Diff [Complete Blood Count Auto Diff] Stat Lab 02/13/24 21:48 Completed CMP [Comprehensive Metabolic Panel] Stat Lab 02/13/24 21:48 Completed HIV (1&2) Antibody Rapid Stat Lab 02/13/24 05:49 Completed Hep C Ab with Reflex to RNA Stat Lab 02/13/24 05:49 Received INR [Prothrombin Time INR] Stat Lab 02/13/24 21:48 Completed Medical Decision Narrative: In summary patient is a 83-year-old female who presents to the emergency department for evaluation of right hip pain after a fall. Patient is hemodynamically stable upon arrival, afebrile. Physical exam is remarkable for tenderness at the right hip with the right leg foreshortened but neurovascularly intact distally. No visible trauma noted including ecchymosis abrasions or edema. No palpable bony deformity felt. Differential diagnosis includes contusion versus fracture of hip and/or pelvis. Initial workup will be conducted with plain film x-rays hematologic labs. Initial interventions include acetaminophen oxycodone. Initial workup reviewed by me shows she has a right intertrochanteric fracture via my informal interpretation of her imaging. Given this I had interactive discussion with hospital medicine about patient management and she will be admitted for further evaluation and care and orthopedic evaluation in the morning. I was consulted by the JERO, and we discussed the complexity of the problems being addressed. I approved the treatment and management plan for this patient's care in the Emergency Department, thus performing a substantive portion of the medical decision making. Ziggy Conrad MD Critical Care <JOSE MARIA Geronimo - Last Filed: 02/13/24 22:53> Critical Care Time Critical Care Time: No
[2024-02-13] MEDS: ACETAMINOPHEN 500MG TAB 1000 MG PO (22:23)
[2024-02-13] MEDS: OXYCODONE 5MG IMMEDIATE RELEASE TABLET 5 MG PO (22:23)
[2024-02-13 22:25] LABS: Basophils # 0.1 K/mm3 (0-0.2); Basophils % 0.7 % (0.1-2.0); Eosinophils # 0.1 K/mm3 (0.0-0.4); Eosinophils % 0.4 % (0.1-12.0); Hematocrit 40.7 % (37.0-47.0); Hemoglobin 13.5 g/dL (12.2-16.2); Lymphocytes # 4.5 K/mm3 (0.7-4.5); Mean Corpuscular HGB Conc 33.3 g/dL (31.8-35.4); Mean Corpuscular Hemoglobin 31.8 pg (27.0-31.2); Mean Corpuscular Volume 95.5 fl (81-99); Mean Platelet Volume 7.6 fl (7.4-10.4); Monocytes # 0.5 K/mm3 (0.1-1.0); Monocytes % 4.8 % (1.7-9.3); Neutrophils # 5.6 K/mm3 (1.8-7.8); Neutrophils % 52.1 % (37.0-80.0); Platelet Count 344 K/mm3 (142-424); Red Blood Count 4.26 M/mm3 (4.20-5.40); Red Cell Distribution Width 15.9 % (11.5-17.5); White Blood Count 10.7 K/mm3 (4.8-10.8)
--- OUTSIDE RECORDS SUMMARY | 2024-02-13 22:25 | XMS_ITS ---
[facility] [address] [place] [id number] Care Team Providers Care [employer] Name Role Phone Erica Greene Primary Care Provider ALLERGIES Allergen (clinical drug ingredient) Drug/Non Drug Allergy documented on EMR Reaction Allergy Type Onset Date Status Bordetella pertussis filamentous hemagglutinin vaccine, inactivated / Bordetella pertussis fimbriae 2/3 vaccine, inactivated / Bordetella pertussis pertactin vaccine, inactivated / Bordetella pertussis toxoid vaccine, inactivated / diphtheria toxoid vaccine, inactivated / tetanus toxoid vaccine, inactivated Adacel Rash at injection site (01/31) Drug Allergy Active Non-steroidal anti-inflammatory agent (FN) NSAIDs renal insufficiency Drug Allergy Active Penicillin Unknown Drug Allergy Active Substance with 3-fejpinm-1-methylg lutaryl-coenzyme A reductase inhibitor mechanism of action (substance) Statins elevated LFTs Drug Allergy Active Substance with sulfonamide structure and antibacterial mechanism of action (substance) Sulfa Antibiotics Unknown Drug Allergy Active REASON FOR VISIT ckup and Annual Wellness Visit MEDICATIONS Medication SIG (Take, Route, Frequency, Duration) Notes Start Date End Date Status Exforge 10-320 MG 1 tab(s) orally once a day Active Calcium + Vitamin D3 600-5 MG-MCG 1 tab(s) orally bid for 30 day(s) Active Macrobid 100 MG 1 cap(s) orally 2 times a day for 7 day(s) 05/07/2021 Not-Taking Ezetimibe 10 MG 1 tab(s) orally once a day Active Synthroid 75 MCG 1 tab(s) orally once daily Active Diphenoxylate-Atropine 2.5-0.025 MG 1-2 tab(s) orally four times a day as needed for nervous stomach 06/03/2023 Active Vitamin B-12 50 MCG 1 tab(s) orally once a day for 30 day(s) Not-Taking hydroCHLOROthiazide 12.5 MG 1 tab(s) ora lly once a day prn Not-Taking VITAL SIGNS Weight 142.4 lbs 06/03/2023 Blood pressure systolic 126 mm Hg 06/03/19 24 Blood pressure diastolic 74 mm Hg 024 Heart Rate 75 /min 06/03/2023 Height 60 in 06/03/2023 BMI 27.81 kg/m2 06/03/2023 Encounters Encounter Location Date Provider Diagnosis [facility] [address] [facility] [address] [place], [place] [id number] 06/03/2023 Erica Greene Adult general medica l examination Z00.00 ; Acquired hypothyroidism E03.9 ; Mixed hyperlipidemia E78.2 ; IBS (irritable bowel syndrome) K58.9 ; Presbycusis of both ears H91.13 ; HTN (hypertension) I10 ; Osteopenia M85.80 and BMI 27.0-27.9,adult Z68.27 ASSESSMENTS Encounter Date Diagnosis Assessment Notes Treatment Notes Treatment Clinical Notes 06/03/2023 Adult general medica l examination (ICD-10 - Z00.00) Patient instructed to return to office Annually for Annual Wellness Visits to include annual screenings of Pain assessment, Functional Ability assessment, Cognitive Ability assessment, Fall Risk assessment, Depression screening and Bladder control screening. 06/03/2023 Acquired hypothyroidism (ICD-10 - E03.9) 06/03/2023 Mixed hyperlipidemia (ICD-10 - E78.2) 06/03/2023 IBS (irritable bowel syndrome) (ICD-10 - K58.9) 06/03/2023 Presbycusis of both ears (ICD-10 - H91.13) 06/03/2023 HTN (hypertension) (ICD-10 - I10) 06/03/2023 Osteopenia (ICD-10 - M85.80) 06/03/2023 BMI 27.0-27.9,adult (ICD-10 - Z68.27) PLAN OF TREATMENT Medication Medication Name Sig Start Date Stop Date Notes Exforge 10-320 MG 1 tab(s) orally once a day Ezetimibe 10 MG 1 tab(s) orally once a day Synthroid 75 MCG 1 tab(s) orally once daily Diphenoxylate-Atropine 2.5-0.025 MG 1-2 tab(s) orally four times a day as needed for nervous stomach 06/03/2023 Treatment Notes Assessment Notes Adult general medical examination Patien t instructed to return to office Annually for Annual Wellness Visits to include annual screenings of Pain assessment, Functional Ability assessment, Cognitive Ability assessment, Fall Risk assessment, Depression screening and Bladder control screening. Next Appt Details Follow Up: 6 Months, Reason: Progress Notes * Examination Category Sub-Category Detail Notes Cardiology Lungs: clear, no rales or wheezes HEENT: sclera and conjuncti va clear, PERRLA, hearing aids present Heart sounds: RRR, normal S1, S2 Abdomen: positive BS, soft, n ontender Carotid upstroke: normal, no bruits Extremities: no edema. Chronic de formity of both knees. No joint swelling, redness, or warmth General Appearance: pleasant, NAD. Moves slowly from chair to standing position due to pain in knees History and Physical Notes * HPI (History of Present Illness) Category Sub-Category Detail Notes HPI Patient is here today for a [facility] check up and a Medicare Annual Wellness Visit. See lab results drawn at [facility] lab on 05/25/2023 . Pt needs refills today. Pt has no new concerns or complaints at this time Physical Examination Category Sub-Category Detail Notes GENERAL Pain Assessment: Pain level: --, on a scale of 0-10 (with 10 being extreme pain) Functional Status Assessment: Patient response to question of how often physical health interferes with daily activities: . Occasionally Able to perform ADLs-including meal preparation, grocery shopping, housework, laundry, taking medications or handling finances. Cognitive Status: alert and oriented. Ambulation Status: Fully ambulatory Fall Risk Assessment: Independant in amb ulation, adequate lighting in home. Patient has fallen or had trouble walking within the past 12 months Depression Screening: Denies depressed m ood or anxiety. Describes emotional health as: calm Bladder Control Screening: Denies proble ms
--- OUTSIDE RECORDS SUMMARY | 2024-02-13 22:25 | XMS_ITS | Patient Health Record ---
[facility] Organization [facility] Address [address] [place] [id number] Care Team Providers Care Java Developer Consultant Name Role Phone Erica Greene Primary Care Provider [phone] ALLERGIES Allergen (clinical drug ingredient) Drug/Non Drug [...] Penicillin Unknown Drug Allergy Active Substance with 8-xflztgs-4-methylg lutaryl-coenzyme A reductase inhibitor mechanism of action (substance) Statins elevated LFTs Drug Allergy Active Substance with sulfonamide structure and antibacterial mechanism of action (substance) Sulfa Antibiotics Unknown Drug Allergy Active RESULTS Component Value Reference Range Notes H-TSH Reviewed date:11/30/2023 11:05:09 AM Interpretation:Normal Performing Lab: Notes/Report: TSH 1.54 0.465-4.68 uIU/mL H-Lipid Panel Reviewed date:11/30/2023 11:05:09 AM Interpretation:chol 226, dldl 92, hdl 90 Performing Lab: Notes/Report: Patient Fasting? Y TRIG 108 30-150 mg/dl CHOL 226 140-200 mg/dl DLDL 91.82 100-129 mg/dL VLDL 22 0-40 mg/dL HDL 90 40-60 mg/dl CHLHDL 2.5 1-3.5 H-CMP Reviewed date:11/30/2023 11:05:09 AM Interpretation:cl 110, bun 19, Cr 1.2, gfr 52, gfr 43, alt 11 Performing Lab: Notes/Report: NA 139 136-145 mmol/L K 4.2 3.5-5.1 mmoL/L CL 110 98-107 mmol/L CO2 24 22.0-30.0 mmol/L GAP 9.2 5-15 mEq/L BUN 19 7-17 mg/dl CREATT 1.20 0.52-1.04 mg/dl GFRAA 52 >60 ML/MIN EGFR 43 >60 ml/min GLU 87 74-100 mg/dl CA 9.7 8.4-10.2 mg/dl BILIT 1.3 0.2-1.3 mg/dl AST 22 14-36 U/L ALT 11 12-78 U/L TP 6.7 6.3-8.2 g/dl ALB 3.8 3.5-5.0 g/dl GLOB 2.9 1.3-3.2 g/dL AGRATIO 1.3 1.1-1.8 ALP 81 38-126 U/L H-CMP Reviewed date:06/03/2023 11:16:34 PM Interpretation: Performing Lab: Notes/Report: NA 140 136-145 mmol/L K 4.2 3.5-5.1 mmoL/L CL 111 98-107 mmol/L CO2 23 22.0-30.0 mmol/L GAP 10.2 5-15 mEq/L BUN 15 7-17 mg/dl CREATT 1.20 0.52-1.04 mg/dl GFRAA 52 >60 ML/MIN EGFR 43 >60 ml/min GLU 90 74-100 mg/dl CA 9.6 8.4-10.2 mg/dl BILIT 1.0 0.2-1.3 mg/dl AST 25 14-36 U/L ALT 24 12-78 U/L TP 6.7 6.3-8.2 g/dl ALB 4.1 3.5-5.0 g/dl GLOB 2.6 1.3-3.2 g/dL AGRATIO 1.6 1.1-1.8 ALP 94 38-126 U/L H-Lipid Panel Reviewed date:06/03/2023 11:16:34 PM Interpretation: Performing Lab: Notes/Report: Patient Fasting? Y TRIG 122 30-150 mg/dl CHOL 221 140-200 mg/dl DLDL 93.73 100-129 mg/dL VLDL 24 0-40 mg/dL HDL 86 40-60 mg/dl CHLHDL 2.6 1-3.5 H-CBC Reviewed date:06/03/2023 11:16:34 PM Interpretation: Performing Lab: Notes/Report: WBC 8.0 4.8-10.8 K/mm3 RBC 4.12 4.20-5.40 M/mm3 HGB 13.1 12.2-16.2 g/dL HCT 40.8 37.0-47.0 % MCV 99.1 81-99 fl MCH 31.9 27.0-31.2 pg MCHC 32.2 31.8-35.4 g/dL RDW 14.1 11.5-17.5 % PLT 296 142-424 K/mm3 MPV 7.6 7.4-10.4 fl NE% 55.0 37.0-80.0 % LY% 36.0 10-50 % MO% 6.5 1.7-9.3 % EO% 1.7 0.1-12.0 % BA% 0.7 0.1-2.0 % NE# 4.4 1.8-7.8 K/mm3 LY# 2.9 0.7-4.5 K/mm3 MO# 0.5 0.1-1.0 K/mm3 EO# 0.1 0.0-0.4 K/mm3 BA# 0.1 0-0.2 K/mm3 H-TSH Reviewed date:06/03/2023 11:16:34 PM Interpretation: Performing Lab: Notes/Report: TSH 1.23 0.465-4.68 uIU/mL MEDICATIONS Medication SIG (Take, Route, Frequency, Duration) Notes Start Date End Date Status Exforge 10-320 MG 1 tab(s) orally once a day Active Ezetimibe 10 MG 1 tab(s) orally once a day Active Diphenoxylate-Atropine 2.5-0.025 MG 1-2 tab(s) orally four times a day as needed for nervous stomach 11/30/2023 Active Macrobid 100 MG 1 cap(s) orally 2 times a day for 7 day(s) 05/07/2021 Not-Taking Synthroid 75 MCG 1 tab(s) orally once daily Active Vitamin B-12 50 MCG 1 tab(s) orally once a day for 30 day(s) Not-Taking hydroCHLOROthiazide 12.5 MG 1 tab(s) ora lly once a day prn Not-Taking Calcium + Vitamin D3 600-5 MG-MCG 1 tab(s) orally bid for 30 day(s) Active IMMUNIZATIONS Vaccine Route Administration Date Status Comme nts vJarpboz-tsleesvqm-lcisxcv e pts. IM Intramuscular 01/09/2011 Administered Tetanus Tdap-Adacel (over 7yrs) IM Intramuscular 02/09/2008 Administered Prevnar (PCV13) IM Intramuscular 07/20/2014 Administered PNEUMOVAX 23 VACCINE IM Intramuscular 01/04/2017 Administe red Fluzone High Dose (65yr and older) IM Intramuscular 01/08/2012 Administered Fluzone High Dose (65yr and older) IM Intramuscular 01/09/2014 Administered Fluzone High Dose (65yr and older) IM Intramuscular 01/10/2016 Administered Fluzone High Dose (65yr and older) IM Intramuscular 01/04/2017 Administered Fluzone High Dose (65yr and older) IM Intramuscular 12/31/2017 Administered Fluzone High Dose (65yr and older) IM Intramuscular 01/23/2020 Administered Fluzone High Dose (65yr and older) IM Intramuscular 02/04/2021 Administered Fluzone High Dose (65yr and older) Unknown 02/09/2022 Administered Fluzone High Dose (65yr and older) Unknown 02/15/2023 Administered COVID 19 Moderna Unknown 06/05/2020 Administered COVID 19 Moderna Unknown 07/03/2020 Administered COVID 19 Moderna Unknown 02/14/2021 Administered COVID 19 Moderna Unknown 08/04/2021 Administered SOCIAL HISTORY Sex Assigned At : Social History Observation Description Sex Assigned At Unknown PROBLEMS Problem Type ICD Code Onset Dates Problem Status W/U Status Risk SNOMED Code Notes Problem HTN (hypertension) (I10) Active confirmed 87117418 Problem Chronic renal insufficiency (N18.9) Active confirmed 194802198 Problem IBS (irritable bowel syndrome) (K58.9) Active confirmed Irritable bowel syndrome (55951765) Problem Osteopenia (M85.80) Active confirmed Osteopenia (044095073) Problem Mixed hyperlipidemia (E78.2) Active confirmed 912001349 Problem Irritable bowel syndrome with diarrhea (K58.0) Active confirmed Irritable bowel syndrome with diarrhea (039725631) Problem Acquired hypothyroidism (E03.9) Active confirmed 383651996 Problem 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) Active confirmed 646090244 Problem BMI 31.0-31.9,adult (Z68.31) Active confirmed 131741096 Problem Presbycusis of both ears (H91.13) Active confirmed 57874987 VITAL SIGNS Heart Rate 62 /min 11/30/2023 Blood pressure diastolic 66 mm Hg 11/30/2023 Height 60 in 11/30/2023 Blood pressure systolic 124 mm Hg 11/30/2023 Weight 147.2 lbs 11/30/2023 BMI 28.74 kg/m2 11/30/2023 Encounters Encounter Location Date Provider [facility] [address] [place] [id number] 06/03/2023 Narciso Greene Adult general medica l examination Z00.00 ; Acquired hypothyroidism E03.9 ; Mixed hyperlipidemia E78.2 ; IBS (irritable bowel syndrome) K58.9 ; Presbycusis of both ears H91.13 ; HTN (hypertension) I10 ; Osteopenia M85.80 and BMI 27.0-27.9,adult Z68.27 [facility] [address] [place] [id number] 11/30/2023 Narciso Greene Acquired hypothyroid ism E03.9 ; Mixed hyperlipidemia E78.2 ; IBS (irritable bowel syndrome) K58.9 ; Presbycusis of both ears H91.13 ; HTN (hypertension) I10 and Osteopenia M85.80 [facility] [address] [place] [id number] 05/06/2023 Narciso Greene IBS (irritable bowel syndrome) K58.9 [facility] [address] [place] [id number] 05/24/2023 Narciso Greene HTN (hypertension) I 10 ; Mixed hyperlipidemia E78.2 ; Chronic renal insufficiency N18.9 and Acquired hypothyroidism E03.9 [facility] [address] [facility] [address] [place] [id number] 11/16/2023 R Narciso Greene HTN (hypertension) I 10 ; Mixed hyperlipidemia E78.2 and Acquired hypothyroidism E03.9 ASSESSMENTS Encounter Date Diagnosis Assessment Notes Treatment Notes Treatment Clinical Notes 11/30/2023 Mixed hyperlipidemia (ICD-10 - E78.2) 11/30/2023 Acquired hypothyroidism (ICD-10 - E03.9) 11/16/2023 HTN (hypertension) (ICD-10 - I10) 11/16/2023 Mixed hyperlipidemia (ICD-10 - E78.2) 05/06/2023 IBS (irritable bowel syndrome) (ICD-10 - K58.9) 06/03/2023 Acquired hypothyroidism (ICD-10 - E03.9) 06/03/2023 Adult general medica l examination (ICD-10 - Z00.00) Patient instructed to return to office Annually for Annual Wellness Visits to include annual screenings of Pain assessment, Functional Ability assessment, Cognitive Ability assessment, Fall Risk assessment, Depression screening and Bladder control screening. 05/24/2023 HTN (hypertension) (ICD-10 - I10) 05/24/2023 Mixed hyperlipidemia (ICD-10 - E78.2) 05/24/2023 Chronic renal insufficiency (ICD-10 - N18.9) 06/03/2023 Mixed hyperlipidemia (ICD-10 - E78.2) 11/16/2023 Acquired hypothyroidism (ICD-10 - E03.9) 11/30/2023 IBS (irritable bowel syndrome) (ICD-10 - K58.9) 11/30/2023 Presbycusis of both ears (ICD-10 - H91.13) 06/03/2023 IBS (irritable bowel syndrome) (ICD-10 - K58.9) 05/24/2023 Acquired hypothyroidism (ICD-10 - E03.9) 11/30/2023 HTN (hypertension) (ICD-10 - I10) 06/03/2023 Presbycusis of both ears (ICD-10 - H91.13) 11/30/2023 Osteopenia (ICD-10 - M85.80) 06/03/2023 HTN (hypertension) (ICD-10 - I10) 06/03/2023 Osteopenia (ICD-10 - M85.80) 06/03/2023 BMI 27.0-27.9,adult (ICD-10 - Z68.27) PLAN OF TREATMENT No Information Insurance Providers Payer Name Payer Address Payer Phone Subscriber Number Group Number Insured Name Patient Relationship to Insured Coverage Start Date Coverage End Date [employer] MEDICARE [address] [address] [place], [place] [id number] MARKO DE LOS SANTOS Self - patient is the insured MEDICAL (GENERAL) HISTORY Medical History History ICD Code HTN HLP Hypothyroidism Renal insufficiency Polymyalgia rheumatica Irritable bowel syndrome OA Severe DJD of knees Surgical History Surgery Date(Month/Year) Gallbladder appendectomy cateract surgery on both eyes 01-31 Hospitalization History Reason Date(Month/Year) see above
--- OUTSIDE RECORDS SUMMARY | 2024-02-13 22:25 | XMS_ITS ---
[facility] Address [address] [place] [phone] Care Team Providers Care Machining And Assembly Supervisor Name Role Phone Erica Greene Primary Care Provider [phone] ALLERGIES Allergen (clinical drug ingredient) Drug/Non Drug [...] Penicillin Unknown Drug Allergy Active Substance with 2-omgtudi-3-methylg lutaryl-coenzyme A reductase inhibitor mechanism of action (substance) Statins elevated LFTs Drug Allergy Active Substance with sulfonamide structure and antibacterial mechanism of action (substance) Sulfa Antibiotics Unknown Drug Allergy Active REASON FOR VISIT check up, Needs bone density screening MEDICATIONS Medication SIG (Take, Route, Frequency, Duration) Notes Start Date End Date Status Exforge 10-320 MG 1 tab(s) orally once a day Active Ezetimibe 10 MG 1 tab(s) orally once a day Active Diphenoxylate-Atropine 2.5-0.025 MG 1-2 tab(s) orally four times a day as needed for nervous stomach 11/30/2023 Active Synthroid 75 MCG 1 tab(s) orally once daily Active Calcium + Vitamin D3 600-5 MG-MCG 1 tab(s) orally bid for 30 day(s) Active Macrobid 100 MG 1 cap(s) orally 2 times a day for 7 day(s) 05/07/2021 Not-Taking Vitamin B-12 50 MCG 1 tab(s) orally once a day for 30 day(s) Not-Taking hydroCHLOROthiazide 12.5 MG 1 tab(s) ora lly once a day prn Not-Taking VITAL SIGNS Weight 147.2 lbs 11/30/2023 Blood pressure systolic 124 mm Hg 11/30/19 24 Blood pressure diastolic 66 mm Hg 024 Heart Rate 62 /min 11/30/2023 Height 60 in 11/30/2023 BMI 28.74 kg/m2 11/30/2023 Encounters Encounter Location Date Provider Diagnosis [facility] [address] [place], [place] [phone] 11/30/2023 R Narciso Greene Acquired hypothyroid ism E03.9 ; Mixed hyperlipidemia E78.2 ; IBS (irritable bowel syndrome) K58.9 ; Presbycusis of both ears H91.13 ; HTN (hypertension) I10 and Osteopenia M85.80 ASSESSMENTS Encounter Date Diagnosis Assessment Notes Treatment Notes Treatment Clinical Notes 11/30/2023 Acquired hypothyroidism (ICD-10 - E03.9) 11/30/2023 Mixed hyperlipidemia (ICD-10 - E78.2) 11/30/2023 IBS (irritable bowel syndrome) (ICD-10 - K58.9) 11/30/2023 Presbycusis of both ears (ICD-10 - H91.13) 11/30/2023 HTN (hypertension) (ICD-10 - I10) 11/30/2023 Osteopenia (ICD-10 - M85.80) PLAN OF TREATMENT Medication Medication Name Sig Start Date Stop Date Notes Exforge 10-320 MG 1 tab(s) orally once a day Ezetimibe 10 MG 1 tab(s) orally once a day Diphenoxylate-Atropine 2.5-0.025 MG 1-2 tab(s) orally four times a day as needed for nervous stomach 11/30/2023 Synthroid 75 MCG 1 tab(s) orally once daily Next Appt Details Follow Up: 6 Months, [...] both knees. No joint swelling, redness, or warmth. Ambulates with straight cane General Appearance: pleasant, NAD. Moves slowly from chair to standing position due to pain in knees History and Physical Notes * HPI (History of Present Illness) Category Sub-Category Detail Notes HPI Patient is here today for a [facility] k up with refills. Pt had labs drawn last week. Pt sts that she has no new concerns or complaints. Pt sts that she is still having her regular aches and pains but nothing new Physical Examination Category Sub-Category Detail Notes LABS See labs reviewed with marichuy sweeney, satisfactory
--- OUTSIDE RECORDS SUMMARY | 2024-02-13 22:25 | XMS_ITS ---
Author Organization [facility] Address [address] [place] [phone] Care Team Providers Care Corporate Events Director Name Role Phone Erica Greene Primary Care Provider RESULTS Component Value Reference Range Notes H-TSH [...] AGRATIO 1.3 1.1-1.8 ALP 81 38-126 U/L REASON FOR VISIT Message Encounters Encounter Location Date Provider Diagnosis [facility] [address] [place] [phone] 11/16/2023 Erica Greene HTN (hypertension) I 10 ; Mixed hyperlipidemia E78.2 and Acquired hypothyroidism E03.9 ASSESSMENTS Encounter Date Diagnosis Assessment Notes Treatment Notes Treatment Clinical Notes 11/16/2023 HTN (hypertension) (ICD-10 - I10) 11/16/2023 Mixed hyperlipidemia (ICD-10 - E78.2) 11/16/2023 Acquired hypothyroidism (ICD-10 - E03.9) PLAN OF TREATMENT No Information
[2024-02-13 22:30] LABS: Albumin Level 4.3 g/dl (3.5-5.0); Chloride 108 mmol/L (98-107); Sodium 140 mmol/L (136-145)
[2024-02-13 22:31] LABS: Potassium 3.7 mmoL/L (3.5-5.1)
[2024-02-13 22:33] LABS: Alanine Aminotransferase 56 U/L (12-78); Albumin/Globulin Ratio 1.3 (1.1-1.8); Alkaline Phosphatase 96 U/L (38-126); Anion Gap 8.7 mEq/L (5-15); Aspartate Amino Transferase 40 U/L (14-36); Bilirubin,Total 0.9 mg/dl (0.2-1.3); Blood Urea Nitrogen 19 mg/dl (7-17); Carbon Dioxide 27 mmol/L (22.0-30.0); Creatinine Clearance Estimated 39 mL/min (50-200); Estimated Glomerular Filt Rate 47 ml/min (>60); GFR (African American) 57 ML/MIN (>60); Globulin 3.3 g/dL (1.3-3.2); Total Protein,Serum 7.6 g/dl (6.3-8.2)
[2024-02-13 22:34] LABS: Calcium 9.3 mg/dl (8.4-10.2); Glucose 135 mg/dl (74-100)
[2024-02-13 22:35] LABS: INR 0.93 (0.9-1.1); Prothrombin Time 10.5 seconds (10.1-12.5)
[2024-02-13 23:12] VITALS: BP 171/96; PULSE 92; RESP 20; TEMP 36.8; O2SAT 96
[2024-02-13 23:36] VITALS: BP 171/96; PULSE 92; RESP 18; O2SAT 96; BMI 29.6
--- NOTE | 2024-02-13 23:41 | PC.NURSE ---
Dr. Gagnon paged at this time, to confirm CT order and additional pain meds.
[2024-02-14] VITALS (19 sets, daily range): BP systolic 106–167; BP diastolic 53–88; PULSE 63–97; RESP 16–20; TEMP 36.3–37.2; O2SAT 94–99; BMI 29.6
[2024-02-14] MEDS: MORPHINE 2MG/ML SYRINGE 2 MG IV ×3 (01:16→15:17)
[2024-02-14] MEDS: 0.9 % SODIUM CHLORIDE 1000ML 1,000 ML 50 ML IV (01:16)
--- NOTE | 2024-02-14 01:56 | CT_ITS ---
PROCEDURE INFORMATION: Exam: CT Pelvis Without Contrast, Skeleton Exam date and time: 02/14/2024 2:01 AM Age: 83 years old Clinical indication: Abnormal findings; Abnormal imaging test; Additional info: Fracture TECHNIQUE: Imaging protocol: Computed tomography of the pelvis without contrast. Exam focused on the skeleton. Radiation optimization: All CT scans at this facility use at least one of these dose optimization techniques: automated exposure control; mA and/or kV adjustment per patient size (includes targeted exams where dose is matched to clinical indication); or iterative reconstruction. COMPARISON: CR XR HIP RT 2-3V W/PELVIS 13/02/2024 22:18 FINDINGS: Intestine: Mild sigmoid diverticulosis without diverticulitis. Vasculature: The arteries demonstrate moderate atherosclerotic disease. Bones/joints: Mildly comminuted and displaced right femoral intertrochanteric fracture. Soft tissues: Unremarkable. IMPRESSION: Mildly comminuted and displaced right femoral intertrochanteric fracture.
--- NOTE | 2024-02-14 06:04 | PC.NURSE ---
Pt is alert and oriented x4. Pt has c/o severe pain this shift and has been treated per MAR. Pt remains NPO for surgery consult. Pt denies needs and pain at this time. Daughter at bedside.
--- OUTSIDE RECORDS SUMMARY | 2024-02-14 08:15 | XMS_ITS ---
[facility] Address [address] [place] [phone] Care Team Providers Care Tonger Name Role Phone Erica Greene Primary Care Provider [phone] ALLERGIES Allergen (clinical drug ingredient) Drug/Non Drug [...] Penicillin Unknown Drug Allergy Active Substance with 3-oiqxhhl-3-methylg lutaryl-coenzyme A reductase inhibitor mechanism of action [...] 06/03/2023 Encounters Encounter Location Date Provider Diagnosis [facility] [facility] [facility] [address] [place], [place] [phone] 06/03/2023 Erica Greene Adult general medica l [...] HPI Patient is here today for a [facility] check up and a Medicare Annual Wellness Visit. See lab results drawn at [facility] lab on 05/25/2023 . Pt needs [...]
--- OUTSIDE RECORDS SUMMARY | 2024-02-14 08:15 | XMS_ITS ---
Author Organization [facility]-[place] Address [address] [place] [phone] Care Team Providers Care Hydrographer Name Role Phone Erica Greene Primary Care Provider [phone] RESULTS Component Value Reference Range Notes H-TSH [...] Message Encounters Encounter Location Date Provider Diagnosis [facility] [address] [place] [phone] 11/16/2023 Erica Greene HTN (hypertension) I 10 ; Mixed hyperlipidemia E78.2 and Acquired hypothyroidism E03.9 ASSESSMENTS Encounter Date Diagnosis Assessment Notes Treatment Notes Treatment Clinical Notes 11/16/2023 HTN (hypertension) (ICD-10 - I10) 11/16/2023 Mixed hyperlipidemia (ICD-10 - E78.2) 11/16/2023 Acquired hypothyroidism (ICD-10 - E03.9) PLAN OF TREATMENT No Information
--- OUTSIDE RECORDS SUMMARY | 2024-02-14 08:15 | XMS_ITS ---
Author Organization [facility] Address [address] [place] [phone] Care Team Providers Care Supervisor Water Softener Service Name Role Phone Erica Greene Primary Care [...] Penicillin Unknown Drug Allergy Active Substance with 6-gsgqirl-9-methylg lutaryl-coenzyme A reductase inhibitor mechanism of action [...] 11/30/2023 Encounters Encounter Location Date Provider Diagnosis [facility] 12[address] [facility] [address] [place], [place] [phone] 11/30/2023 R Narciso Greene Acquired hypothyroid ism [...] HPI Patient is here today for a [facility] k up with refills. Pt had labs drawn last week. Pt sts that she has no new concerns or complaints. Pt sts that she is still having her regular aches and pains but nothing new Physical Examination Category Sub-Category Detail Notes LABS See labs reviewed with marichuy sweeney, satisfactory
--- OUTSIDE RECORDS SUMMARY | 2024-02-14 08:16 | XMS_ITS | Patient Health Record ---
Author Organization [facility] Address [address] [place] [phone] Care Team Providers Care Fire Fighter [employer] Name Role Phone Erica Greene Primary Care [...] Penicillin Unknown Drug Allergy Active Substance with 3-jgglbyb-4-methylg lutaryl-coenzyme A reductase inhibitor mechanism of action [...] Vaccine Route Administration Date Status Comme nts COVID 19 Moderna Unknown 06/05/2020 Administered COVID 19 Moderna Unknown 07/03/2020 Administered COVID 19 Moderna Unknown 02/14/2021 Administered COVID 19 Moderna Unknown 08/04/2021 Administered Fluzone High Dose (65yr and older) [...] Dose (65yr and older) Unknown 02/15/2023 Administered PNEUMOVAX 23 VACCINE IM Intramuscular 01/04/2017 Administe red Prevnar (PCV13) IM Intramuscular 07/20/2014 Administered Tetanus Tdap-Adacel (over 7yrs) IM Intramuscular 02/09/2008 Administered sPyiujzn-tvfpxltzs-lztzhtm e pts. IM Intramuscular 01/09/2011 Administered SOCIAL HISTORY Sex Assigned At : Social History Observation Description Sex Assigned At Unknown PROBLEMS Problem Type ICD Code Onset Dates Problem Status W/U Status Risk SNOMED Code Notes Problem HTN (hypertension) (I10) Active confirmed 64738401 Problem Chronic renal insufficiency (N18.9) Active confirmed 688236303 Problem IBS (irritable bowel syndrome) (K58.9) Active confirmed Irritable bowel syndrome (54051174) Problem Osteopenia (M85.80) Active confirmed Osteopenia (182722896) Problem Mixed hyperlipidemia (E78.2) Active confirmed 591628982 Problem Irritable bowel syndrome with diarrhea (K58.0) Active confirmed Irritable bowel syndrome with diarrhea (241072241) Problem Acquired hypothyroidism (E03.9) Active confirmed 251485213 Problem 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) Active confirmed 768367188 Problem BMI 31.0-31.9,adult (Z68.31) Active confirmed 999907990 Problem Presbycusis of both ears (H91.13) Active confirmed 22934037 VITAL SIGNS Heart Rate 62 /min 11/30/2023 Blood pressure diastolic 66 mm Hg 11/30/2023 Height 60 in 11/30/2023 Blood pressure systolic 124 mm Hg 11/30/2023 Weight 147.2 lbs 11/30/2023 BMI 28.74 kg/m2 11/30/2023 Encounters Encounter Location Date Provider [facility] [address] [place] [id number] 06/03/2023 Narciso Greene Adult general medica l examination Z00.00 ; Acquired hypothyroidism E03.9 ; Mixed hyperlipidemia E78.2 ; IBS (irritable bowel syndrome) K58.9 ; Presbycusis of both ears H91.13 ; HTN (hypertension) I10 ; Osteopenia M85.80 and BMI 27.0-27.9,adult Z68.27 [facility] [address] [place] [id number] 11/30/2023 Narciso Greene Acquired hypothyroid ism E03.9 ; Mixed hyperlipidemia E78.2 ; IBS (irritable bowel syndrome) K58.9 ; Presbycusis of both ears H91.13 ; HTN (hypertension) I10 and Osteopenia M85.80 [facility] [address] [place] [id number] 05/06/2023 Narciso Greene IBS (irritable bowel syndrome) K58.9 [facility] [address] [place] [id number] 05/24/2023 Narciso Greene HTN (hypertension) I 10 ; Mixed hyperlipidemia E78.2 ; Chronic renal insufficiency N18.9 and Acquired hypothyroidism E03.9 [facility] [address] [facility] [address] [place] [id number] 11/16/2023 R Narciso Greene HTN (hypertension) I 10 ; Mixed hyperlipidemia E78.2 and Acquired hypothyroidism E03.9 ASSESSMENTS Encounter Date Diagnosis Assessment Notes Treatment Notes Treatment Clinical Notes 05/24/2023 Mixed hyperlipidemia (ICD-10 - E78.2) 05/06/2023 IBS (irritable bowel syndrome) (ICD-10 - K58.9) 11/30/2023 Mixed hyperlipidemia (ICD-10 - E78.2) 11/30/2023 Acquired hypothyroidism (ICD-10 - E03.9) 11/16/2023 HTN (hypertension) (ICD-10 - I10) 11/16/2023 Mixed hyperlipidemia (ICD-10 - E78.2) 06/03/2023 Acquired hypothyroidism (ICD-10 - E03.9) 06/03/2023 Adult general medica l examination (ICD-10 - Z00.00) Patient instructed to return to office Annually for Annual Wellness Visits to include annual screenings of Pain assessment, Functional Ability assessment, Cognitive Ability assessment, Fall Risk assessment, Depression screening and Bladder control screening. 05/24/2023 HTN (hypertension) (ICD-10 - I10) 05/24/2023 Chronic renal insufficiency (ICD-10 - N18.9) 06/03/2023 Mixed hyperlipidemia (ICD-10 - E78.2) 11/16/2023 Acquired hypothyroidism (ICD-10 - E03.9) 11/30/2023 IBS (irritable bowel syndrome) (ICD-10 - K58.9) 05/24/2023 Acquired hypothyroidism (ICD-10 - E03.9) 11/30/2023 Presbycusis of both ears (ICD-10 - H91.13) 06/03/2023 IBS (irritable bowel syndrome) (ICD-10 - K58.9) 11/30/2023 HTN (hypertension) (ICD-10 - I10) 06/03/2023 [...] Date [employer] MEDICARE [address] [address] [place], [place] [id number] MARKO DE LOS SANTOS Self - patient is the insured MEDICAL (GENERAL) HISTORY Medical History History ICD Code HTN HLP Hypothyroidism Renal insufficiency Polymyalgia rheumatica Irritable bowel syndrome OA Severe DJD of knees Surgical History Surgery Date(Month/Year) Gallbladder appendectomy cateract surgery on both eyes 01-31 Hospitalization History Reason Date(Month/Year) see above
[2024-02-14 08:22] LABS: HIV (1&2) Antibody Rapid NONREACTIVE (NONREACTIVE)
--- NOTE | 2024-02-14 08:26 | P.HP_ITS ---
History of Present Illness *Admission Date: 01/15/24 *Reason for visit:: Fracture right hip *History of present illness: Ms. De Los Santos is an 83-year-old female with a history of hypertension, hyperlipidemia, hypothyroidism, renal insufficiency, Neha myalgia rheumatica, irritable bowel syndrome, osteoarthritis, and degenerative joint disease of bilateral legs who was brought into the [facility] emergency room for evaluation per EMS after mechanical fall at home. Patient states she was turning in her kitchen and tripped over her own feet causing the fall. She and her were unable to get her up due to the pain in her hip. Thus they called EMS. She denies any prefall chest pain, shortness of breath, dizziness or syncopal episode. She has been in her usual state of health with eating and drinking normally. She uses a cane for walking when outside of the home. This a.m. patient states she has had a rough night due to the pain in her hip. She is n.p.o. for surgery. Orthopedic surgeon has been consulted. [facility] Disclaimer: The information contained in this section may have been updated after the patient was seen, as this information can be updated by other users. Medical History (Updated 02/14/24 @ 08:46 by Basia Mcghee APRN) Hypertension Hyperlipemia Surgical History (Updated 02/14/24 @ 08:30 by Basia Mcghee APRN) History of cataract surgery History of appendectomy History of cholecystectomy Family History (Updated 02/14/24 @ 00:22 by Natasha Garcia RN) Other Family history of cancer Family history of cardiomyopathy Social History (Updated 02/14/24 @ 00:22 by Natasha Garcia RN) Smoking Status: Never smoker alcohol intake: never current occupational status: employed and retired Travel in the last 8 weeks: None Other Medical History Have you received the Flu Vaccine for this season: No Have you received the Pneumonia Vaccine: No Review of Systems Constitutional Constitutional: Denies chills, Denies fever(s), Reports frequent falls and Denies weakness Eyes Eyes: Denies change in vision ENT Ears, Nose, Mouth, and Throat: Denies dizziness, Denies otalgia, Denies sore throat and Denies vertigo *Cardiovascular Cardiovascular: Denies chest pain, Denies dyspnea, Denies palpitations, Denies rapid heart rate and Denies syncope *Respiratory Respiratory: Denies chest congestion, Denies cough and Denies dyspnea *Gastrointestinal Gastrointestinal: Reports abdominal pain (Occasionally has cramping), Denies change in stool character, Denies hematemesis, Denies hematochezia, Reports loose stools (Has a history of irritable bowel syndrome with diarrhea for many years), Denies melena and Denies nausea *Genitourinary Genitourinary: Denies difficulty voiding *Musculoskeletal Musculoskeletal: Reports abnormal gait (Uses a cane when outside the home) and Reports arthralgias (Bilateral knees) *Neurologic Neurologic: Reports abnormal gait (Uses a cane when outside the home), Denies abnormal speech, Denies behavioral changes, Denies dizziness, Reports frequent falls, Denies seizure-like activity, Denies syncope, Denies vertigo and Denies weakness Psychiatric Psychiatric: Denies behavioral changes Endocrine Endocrine: Denies palpitations Meds Home Medications and Allergies Home Medications ?Medication ?Instructions ?Recorded ?Confirmed ?Type amlodipine 10 mg-valsartan 320 mg 1 tab PO DAILY 06/07/22 02/13/24 History tablet ezetimibe 10 mg tablet 10 mg PO DAILY 06/07/22 02/13/24 History levothyroxine 75 mcg tablet 75 mcg PO DAILY 06/07/22 02/13/24 History B-complex with vitamin C 1 tab PO DAILY 02/13/24 02/14/24 History diphenoxylate-atropine 2.5 1 - 2 tab PO QID PRN Stomach Upset 02/13/24 02/13/24 History mg-0.025 mg tablet New Prescriptions to Start Prescriptions: Allergies Allergy/AdvReac Type Severity Reaction Status Date / Time Penicillins [PENICILLINS] Allergy Unknown I-RASH Verified 03/27/23 08:46 Sulfa (Sulfonamide Allergy Unknown UNKNOWN Verified 03/27/23 08:46 Antibiotics) [SULFA (SULFONAMIDE ANTIBIOTICS)] Exam Data for Last 24 hours Vital signs and Labs for Last 24 Hours: Temp Pulse Resp BP Pulse Ox O2 Del Method 98.1 F 82 16 139/68 96 Room Air 02/14/24 04:00 02/14/24 04:00 02/14/24 04:00 02/14/24 04:00 02/14/24 04:00 02/14/24 06:47 Laboratory Results - last 24 hr 02/13/24 05:49: HIV 1&2 Antibody Rapid Nonreactive 02/13/24 21:48: WBC 10.7, RBC 4.26, Hgb 13.5, Hct 40.7, MCV 95.5, MCH 31.8 H, MCHC 33.3, RDW 15.9, Plt Count 344, MPV 7.6, Neut % (Auto) 52.1, Lymph % (Auto) 42.0, [place] % (Auto) 4.8, Eos % (Auto) 0.4, Baso % (Auto) 0.7, Neut # (Auto) 5.6, Lymph # (Auto) 4.5, [place] # (Auto) 0.5, Eos # (Auto) 0.1, Baso # (Auto) 0.1, PT 10.5, INR 0.93, Sodium 140, Potassium 3.7, Chloride 108 H, Carbon Dioxide 27, Anion Gap 8.7, BUN 19 H, Creatinine 1.10 H, Estimated Creat Clear 39, Estimated GFR 47 L, Est GFR ( Amer) 57 L, Glucose 135 H, Calcium 9.3, Total Bilirubin 0.9, AST 40 H, ALT 56, Alkaline Phosphatase 96, Total Protein 7.6, Albumin 4.3, Globulin 3.3 H, Albumin/Globulin Ratio 1.3 I & O for Last 24 hours: Intake & Output 02/11/24 02/12/24 02/13/24 02/14/24 11:59 11:59 11:59 11:59 Intake Total 0 / 0 Output Total 0 / 0 Balance 0 / 0 Weight 150 lb 15.984 oz Constitutional Constitutional: no acute distress Comments: Awake and conversant *Routine HEENT Exam Head: Present normocephalic and atraumatic Eye: Present PERRL; Absent conjunctival icterus, scleral injection or conjunctivae pink ENT: Present mucous membranes moist and oropharynx clear *Routine Neck Exam Neck: Present supple; Absent carotid bruit, lymphadenopathy or thyromegaly *Routine Respiratory Exam Respiratory: Present CTA bilaterally (Anteriorly and posteriorly) *Routine Cardiovascular Exam Cardiovascular: Present RRR and ectopic (Rare) *Routine Abdominal Exam Abdominal: Present soft and normoactive bowel sounds; Absent tenderness, distended or guarding *Routine Rectal Exam Rectal:: deferred *Routine Genitalia Exam Genitalia:: deferred *Routine Extremities Exam Extremities: Present pulses intact; Absent edema or calf tenderness Comments: Tender to palpation over the right hip *Routine Skin Exam Skin: Present dry and warm *Routine Neurological Exam Neurological: Present alert and oriented X3 Assessment and Plan *Assessment and plan (1) Closed intertrochanteric fracture of right femur: Status: Acute Qualifiers: Encounter type: initial encounter Fracture alignment: nondisplaced Qualified Code(s): S72.144A - Nondisplaced intertrochanteric fracture of right femur, initial encounter for closed fracture Category: Medical Code(s): S72.141A - Displaced intertrochanteric fracture of right femur, initial encounter for closed fracture (2) Fall: Status: Acute Category: Medical Code(s): W19.XXXA - Unspecified fall, initial encounter (3) Irritable bowel syndrome with diarrhea: Status: Acute Category: Medical Code(s): K58.0 - Irritable bowel syndrome with diarrhea (4) Hypothyroidism: Status: Acute Category: Medical Code(s): E03.9 - Hypothyroidism, unspecified (5) Presbycusis of both ears: Status: Acute Category: Medical Code(s): H91.13 - Presbycusis, bilateral Plan Orthopedic surgeon has been consulted. Will continue with pain management Dr. Sam entry - Saw patient, agree with above note.
--- NOTE | 2024-02-14 08:31 | HMH.PHAINT1 ---
Pharmacy Intervention Comments: Home medications verified using list from pharmacy.
--- NOTE | 2024-02-14 09:37 | P.CONS_ITS ---
History of Present Illness *Admission Date: 01/15/24 *History of present illness: Ms. De Los Santos is an 83-year-old female with a history of hypertension, hyperlipidemia, hypothyroidism, renal insufficiency, Neha myalgia rheumatica, irritable bowel syndrome, osteoarthritis, and degenerative joint disease of bilateral legs who was brought into the [facility] emergency room for evaluation per EMS after mechanical fall at home. Patient states she was turning in her kitchen and tripped over her own feet causing the fall. She and her were unable to get her up due to the pain in her hip. Thus they called EMS. She denies any prefall chest pain, shortness of breath, dizziness or syncopal episode. She has been in her usual state of health with eating and drinking normally. She uses a cane for walking when outside of the home. Orthopedics consulted regarding definitive treatment for hip fracture [facility] Disclaimer: The information contained in this section may have been updated after the patient was seen, as this information can be updated by other users. Medical History (Updated 02/14/24 @ 08:46 by Basia Mcghee APRN) Hypertension Hyperlipemia Surgical History (Updated 02/14/24 @ 08:30 by Basia Mcghee APRN) History of cataract surgery History of appendectomy History of cholecystectomy Family History (Updated 02/14/24 @ 00:22 by Natasha Garcia RN) Other Family history of cancer Family history of cardiomyopathy Social History (Updated 02/14/24 @ 00:22 by Natasha Garcia RN) Smoking Status: Never smoker alcohol intake: never current occupational status: employed and retired Travel in the last 8 weeks: None Review of Systems Constitutional Constitutional: Reports frequent falls and Denies weakness ENT Ears, Nose, Mouth, and Throat: Denies dizziness and Denies vertigo *Cardiovascular Cardiovascular: Denies syncope *Musculoskeletal Musculoskeletal: Reports abnormal gait (Uses a cane when outside the home) *Neurologic Neurologic: Reports abnormal gait (Uses a cane when outside the home), Denies abnormal speech, Denies behavioral changes, Denies dizziness, Reports frequent falls, Denies seizure-like activity, Denies syncope, Denies vertigo and Denies weakness Psychiatric Psychiatric: Denies behavioral changes Meds Home Medications and Allergies Home Medications ?Medication ?Instructions ?Recorded ?Confirmed ?Type amlodipine 10 mg-valsartan 320 mg 1 tab PO DAILY 06/07/22 02/13/24 History tablet ezetimibe 10 mg tablet 10 mg PO DAILY 06/07/22 02/13/24 History levothyroxine 75 mcg tablet 75 mcg PO DAILY 06/07/22 02/13/24 History B-complex with vitamin C 1 tab PO DAILY 02/13/24 02/14/24 History diphenoxylate-atropine 2.5 1 - 2 tab PO QID PRN Stomach Upset 02/13/24 02/13/24 History mg-0.025 mg tablet New Prescriptions to Start Prescriptions: Allergies Allergy/AdvReac Type Severity Reaction Status Date / Time Penicillins [PENICILLINS] Allergy Unknown I-RASH Verified 03/27/23 08:46 Sulfa (Sulfonamide Allergy Unknown UNKNOWN Verified 03/27/23 08:46 Antibiotics) [SULFA (SULFONAMIDE ANTIBIOTICS)] Ortho Exam (Inpt) Vital signs and Labs for Last 24 Hours: Temp Pulse Resp BP Pulse Ox O2 Del Method 98.0 F 97 H 18 167/83 H 96 Room Air 02/14/24 08:00 02/14/24 08:00 02/14/24 08:00 02/14/24 08:00 02/14/24 08:00 02/14/24 08:00 Laboratory Results - last 24 hr 02/13/24 05:49: HIV 1&2 Antibody Rapid Nonreactive 02/13/24 21:48: WBC 10.7, RBC 4.26, Hgb 13.5, Hct 40.7, MCV 95.5, MCH 31.8 H, MCHC 33.3, RDW 15.9, Plt Count 344, MPV 7.6, Neut % (Auto) 52.1, Lymph % (Auto) 42.0, [place] % (Auto) 4.8, Eos % (Auto) 0.4, Baso % (Auto) 0.7, Neut # (Auto) 5.6, Lymph # (Auto) 4.5, [place] # (Auto) 0.5, Eos # (Auto) 0.1, Baso # (Auto) 0.1, PT 10.5, INR 0.93, Sodium 140, Potassium 3.7, Chloride 108 H, Carbon Dioxide 27, Anion Gap 8.7, BUN 19 H, Creatinine 1.10 H, Estimated Creat Clear 39, Estimated GFR 47 L, Est GFR ( Amer) 57 L, Glucose 135 H, Calcium 9.3, Total Bilirubin 0.9, AST 40 H, ALT 56, Alkaline Phosphatase 96, Total Protein 7.6, Albumin 4.3, Globulin 3.3 H, Albumin/Globulin Ratio 1.3 I & O for Labs for Last 24 Hours: Intake & Output 02/11/24 02/12/24 02/13/24 02/14/24 23:59 23:59 23:59 23:59 Intake Total 0 / 0 Output Total 0 / 0 Balance 0 / 0 Weight 151 lb 150 lb 15.984 oz Constitutional: Present no acute distress Head: Present normocephalic and atraumatic Additional findings:: Right hip: Slightly shortened sensations intact. Tenderness around the knee and proximal around the hip. X-rays and CT scan of the right hip show comminuted intertrochanteric hip fracture on right side. Results Labs 02/13/24 21:48 02/13/24 21:48 Labs: Abnormal lab results 02/13/24 Range/Units 21:48 MCH 31.8 H (27.0-31.2) pg Chloride 108 H (98-107) mmol/L BUN 19 H (7-17) mg/dl Creatinine 1.10 H (0.52-1.04) mg/dl Estimated GFR 47 L (>60) ml/min Est GFR ( Amer) 57 L (>60) ML/MIN Glucose 135 H (74-100) mg/dl AST 40 H (14-36) U/L Globulin 3.3 H (1.3-3.2) g/dL H & H 02/13/24 Range/Units 21:48 Hgb 13.5 (12.2-16.2) g/dL Hct 40.7 (37.0-47.0) % Coagulation 02/13/24 Range/Units 21:48 INR 0.93 (0.9-1.1) All other labs normal. Assessment and Plan *Assessment and plan (1) Closed intertrochanteric fracture of right femur: Status: Acute Qualifiers: Encounter type: initial encounter Fracture alignment: nondisplaced Q ualified Code(s): S72.144A - Nondisplaced intertrochanteric fracture of right femur, initial encounter for closed fracture Category: Medical Code(s): S72.141A - Displaced intertrochanteric fracture of right femur, initial encounter for closed fracture Plan Had discussion with the patient and her and daughter today regarding treatment options. Given the nature of the fracture operative intervention is indicated. This involves cephalomedullary nail right proximal femur. I explained the process postoperative prognosis and expectations to the patient the family. PROPOSED SURGERY: Cephalomedullary nailing right proximal femur the risks and benefits of the proposed surgery were discussed in depth with the patient. Potential complications including inherent risk of anesthesia, infection, neurovascular damage, DVT, and rare but real potential loss of limb or life were all reviewed. Patient voices understanding and seems to understand to my satisfaction and wishes to proceed with surgery. I gave them adequate time to ask any questions they have pertaining to this surgery and answered all of them to the best of my ability. I gave them no guarantees in regards to outcomes of this surgery.
--- NOTE | 2024-02-14 10:06 | PC.NURSE ---
pt off floor to surgery
--- NOTE | 2024-02-14 10:14 | ECG_ITS ---
APPROVED REPORT Exam: Resting ECG HR:84 bpm ECG Measurements Heart Rate 84 AXES AK 159 P 57 QRSd 85 QRS -20 QT 344 T 2 QTc 385 Conclusion SINUS RHYTHM MODERATE ST DEPRESSION [0.05+ mV ST DEPRESSION] ABNORMAL ECG UNCONFIRMED REPORT Electronically signed by : Paul Nick MD 02/16/2024 08:21:10
--- NOTE | 2024-02-14 10:27 | EXP.ANES.CKL ---
[facility] Disclaimer: The information contained in this section may have been updated after the patient was seen, as this information can be updated by other users. Medical History (Updated 02/14/24 @ 08:46 by Basia Mcghee APRN) Hypertension Hyperlipemia Surgical History (Updated 02/14/24 @ 08:30 by Basia Mcghee APRN) History of cataract surgery History of appendectomy History of cholecystectomy Family History (Updated 02/14/24 @ 00:22 by Natasha Garcia, MASOUD) Other Family history of cancer Family history of cardiomyopathy Social History (Updated 02/14/24 @ 00:22 by Natasha Garcia RN) Smoking Status: Never smoker alcohol intake: never substance use type: denies use current occupational status: employed and retired Travel in the last 8 weeks: None [facility] Anesthesia Checklist Patient Identification Patient Identification: Arm Band and Verbal (Name & ) Structural Data Admitted From: Inpatient (RM [id number]) Planned Operative Procedure/s: RT. cephalomeddullary nailing of proximal femur Consent for Planned Operative Procedure(s) Verified: Yes Verified Documents: Surgical Consent and History and Physical NPO Status Verified Time NPO: 09:00 (water) Chart Verification Results Verified: CBC, BMP, PT, PTT, INR and ECG Additional verifications Patient : No Anesthesia Reactions: No Cardiovascular Assessment Heart Sounds: S1 & S2 Pulse Rhythm: Irregular Peripheral Edema: No Airway Assessment Mallampati Score:: Class II C-Spine Mobility Assessed: Yes (FROM demonstrated) TMJ Mobility Assessed: Yes Dentition: Poor Dentition (Upper dentures out. Nothing loose per pt.) Neurological Assessment Level of Consciousness: Awake, Alert, Appropriate and Follows Commands Hx Seizures: No Numbness or tingling in extremities: No Anesthesia Plan Anesthesia Risk discussed: Yes Anesthesia Plan: Verified ASA Class: III Anesthesia Type: MAC w/Spinal
[2024-02-14] MEDS: CLINDAMYCIN PHOSPHATE/D5W 900 MG/50 ML PIGGYBACK 100 MG IV ×2 (10:36→17:28)
--- NOTE | 2024-02-14 12:09 | EXP.OP.NOTE ---
Date of procedure: 02/14/24 Pre-op Diagnosis:: Right hip intertrochanteric hip fracture Post-op Diagnosis:: Same Procedure performed:: Cephalomedullary nailing right proximal femur Surgeon:: Cortez Reyes DO Administrative Assistant Receptionist(s):: Bernard [employer] HELPER:: Nica Vargas Anesthesia: GETA Estimated blood loss (mL): 50 Operative findings:: Intertrochanteric hip fracture Operative note:: Patient was identified preoperatively. Right hip marked with yes and my initials. Transported operative suite. Given spinal anesthesia. Then placed on the fracture table. Fracture leg was placed in line with the foot palmer. Her nonoperative leg was placed in the semilithotomy position well-padded with a gel pad and the leg palmer. X-ray was then brought in to identify the intertrochanteric hip fracture. Fracture bed was utilized to perform reduction with traction and internal rotation to get good reduction of the intertrochanteric hip fracture. Once good reduction was obtained the AP and lateral views were reviewed. Once with good reduction the right hip was then prepped and draped in normal sterile fashion. Once prepped and draped final operative timeout performed to identify proper patient procedure and extremity. Everyone involved in the case agreed. There were no counter indications to beginning. She did receive preoperative antibiotics with clindamycin. Marking pen was used to make a plan incision and 2 fingerbreadths above the greater trochanter. Skin was incised along with the IT band. Guidewire was then placed on the tip of the greater trochanter and under direct visualization with the x-ray placed down into the canal of the femur. The opening reamer was then utilized over this guidewire after AP and lateral views show proper placement of the wire. The size 11 short TFN nail was selected and placed over the guidewire. This was directly visualized on the x-ray. The impactor was placed and the nail was impacted down to the proper position for the helical blade. Once the proper depth obtain the guidewire for the helical blade was placed and AP and lateral views were visualized for proper alignment and tip apex distance. Once this was confirmed on both AP and lateral views the measuring guide measured to a size 9D. The lateral cortical reamer was utilized followed by the step drill set at 90 which bottomed out the drilling at 85 mm. 90 mm helical blade was selected. This was impacted into place under direct visualization on the x-ray. Then went superiorly and locks the lag screw with the locking mechanism of the cephalomedullary nail. Then removed the guide. Attention was then brought to the distal locking screw where the 3 and 1 drill sheath was placed to the handle guide and bicortical hole was drilled and a size 36 distal screw was placed. X-rays were taken the AP and lateral views found to be with good alignment hardware in good position. Irrigation of the wounds performed IT band closed with 0 Vicryl subcutaneous with 2-0 Vicryl surgical clips in the skin for closure sterile hip dressing placed patient was then taken recovery in stable condition. Condition: stable Disposition: PACU Complications:: None apparent
--- NOTE | 2024-02-14 12:13 | XR_ITS ---
FINAL REPORT CLINICAL HISTORY: right hip in OR ft 1.1min dap 13.05mgy FINDINGS: FLUORO TIME PROCEDURE: Fluoroscopy in the operating room. FINDINGS: Fluoroscopy time was provided by the radiology department for the clinical service. 4 films were obtained. Fluoroscopy exposure time: 1.1-minute DAP: 13.05 mGy IMPRESSION: See operative report Reviewed, Interpreted and Dictated by Jeff Villalobos MD Transcribed by Prudence Shay Authenticated and . [facility]
--- NOTE | 2024-02-14 12:38 | P.PNANES_ITS ---
[facility] Anesthesia Record Part I Anesthesia Record I Intake, IV Amount: 1,100 Hydration: Adequate Estimated blood loss (mL): 150 Urine output (mL): 200 Blood Products used (#): none Blood Pressure: 106/60 SaO2: 97 Pulse Rate: 81 Airway Patency: Patent Respiratory Rate: 20 Temperature: 97.3 F Patient is:: Awake (Talking), Oral/Nasal airway (26Fr. nasal trumpet removed from RT. nare upon arrival to PACU) and Stable Stable to PACU at:: 12:40
[2024-02-14 13:10] LABS: Microscopic,Cath URINE MICROSCOPIC (MICROSCOPIC)
--- NOTE | 2024-02-14 13:19 | PC.NURSE ---
PACU nurse called to give report and informed me that wanted to d/c bateman catheter in the morning. (02/14)
--- NOTE | 2024-02-14 13:57 | EXP.ANES.II ---
[facility] Anesthesia Record Part II Anesthesia Record Part II Discharge Time: 13:05 Destination: Surgical Day Care (OP Surgery) PACU nurse assessment reviewed?: Yes Patient Condition:: Good Anesthesia Complications:: None Swallowing reflex intact?: Yes Airway Patency: Patent Cyanosis?: No Blood Pressure: 110/54 SaO2: 97 Respiratory Rate: 18 Pulse Rate: 77 Temperature: 97.3 F Mental Status: Alert & Oriented Pain level:: 0 Nausea and/or vomitting:: None Intake, IV Amount: 1,100 Hydration: Adequate
[2024-02-14 14:45] LABS: Appearance,Urine/Cath CLEAR (Clear); Bilirubin,Cath Negative (Negative); Blood, Urine/Cath 2+ (Negative); Color,Urine/Cath YELLOW (Yellow); Glucose,Urine/Cath (UA) Negative (Negative); Ketones,Urine/Cath Negative (Negative); Leukocyte Esterase,Cath Negative (Negative); Nitrate,Cath Negative (Negative); PH,Urine/Cath 6.5 (5.0-8.5); Protein,Urine/Cath 1+ (Negative); Urobilinogen,Cath 0.2 EU/dl (0.2)
--- NOTE | 2024-02-14 15:31 | PC.NURSE ---
pt has remained on room air this shift. pt underwent surgery to rt hip this morning. pt has c/o moderate pain and has been medicated per JUN.pt's surgery site is currently covered w/ 4x4,xerofoam, and abd pad. dsg remains cdi. pt had bateman catheter placed in surgery and instructed to not remove bateman until tomorrow (02/14) morning. pt has had no other c/o this shift. post-op vitals are still being taken. no new orders at this time. call light within reach.
[2024-02-14 15:41] LABS: Bacteria,Urine/Cath OCCASSIONAL /lpf; Squamous Epithelial Ur./Cath Occasional #/hpf (0-5)
[2024-02-14] MEDS: ASPIRIN 81MG CHEWABLE TABLET 81 MG PO (20:01)
[2024-02-14] MEDS: OXYCODONE 5MG W/APAP 325MG TABLET 1 EACH PO (20:02)
[2024-02-15] VITALS: BP 129/69; PULSE 90; RESP 16; TEMP 36.9; O2SAT 95
[2024-02-15] MEDS: CLINDAMYCIN PHOSPHATE/D5W 900 MG/50 ML PIGGYBACK 100 MG IV (01:49)
[2024-02-15] MEDS: OXYCODONE 5MG W/APAP 325MG TABLET 1 EACH PO ×3 (03:49→20:03)
[2024-02-15] MEDS: 0.9 % SODIUM CHLORIDE 1000ML 1,000 ML 50 ML IV (03:50)
[2024-02-15 04:00] VITALS: BP 142/70; PULSE 80; RESP 17; TEMP 36.9; O2SAT 91; BMI 30.6
[2024-02-15 06:47] LABS: Basophils % 0.2 % (0.1-2.0); Eosinophils % 0.4 % (0.1-12.0); Hematocrit 31.3 % (37.0-47.0); Hemoglobin 10.6 g/dL (12.2-16.2); Lymphocytes # 1.6 K/mm3 (0.7-4.5); Lymphocytes % 17.1 % (10-50); Mean Corpuscular HGB Conc 33.7 g/dL (31.8-35.4); Mean Corpuscular Hemoglobin 32.5 pg (27.0-31.2); Mean Corpuscular Volume 96.4 fl (81-99); Mean Platelet Volume 7.5 fl (7.4-10.4); Monocytes # 0.8 K/mm3 (0.1-1.0); Monocytes % 8.3 % (1.7-9.3); Platelet Count 205 K/mm3 (142-424); Red Blood Count 3.25 M/mm3 (4.20-5.40); Red Cell Distribution Width 15.8 % (11.5-17.5); White Blood Count 9.4 K/mm3 (4.8-10.8)
[2024-02-15 07:04] LABS: Alanine Aminotransferase 195 U/L (12-78); Albumin Level 2.8 g/dl (3.5-5.0); Albumin/Globulin Ratio 1.2 (1.1-1.8); Alkaline Phosphatase 139 U/L (38-126); Anion Gap 3.4 mEq/L (5-15); Aspartate Amino Transferase 147 U/L (14-36); Blood Urea Nitrogen 16 mg/dl (7-17); Calcium 8.1 mg/dl (8.4-10.2); Carbon Dioxide 31 mmol/L (22.0-30.0); Chloride 107 mmol/L (98-107); Creatinine Clearance Estimated 46 mL/min (50-200); Estimated Glomerular Filt Rate 53 ml/min (>60); GFR (African American) 64 ML/MIN (>60); Globulin 2.4 g/dL (1.3-3.2); Glucose 96 mg/dl (74-100); Potassium 3.4 mmoL/L (3.5-5.1); Sodium 138 mmol/L (136-145); Total Protein,Serum 5.2 g/dl (6.3-8.2)
[2024-02-15 07:50] VITALS: BP 138/69; PULSE 81; RESP 16; TEMP 36.6; O2SAT 94
--- NOTE | 2024-02-15 08:37 | P.PN_ITS ---
Subjective *Date: 02/15/24 *Time: 08:54 Interval history: Patient did have her hip surgery yesterday. She states she did not sleep well and required pain medicine about 3-4 times during the night. Pain medicine does help. She said last night was a little better than the night before. She is not hungry but denies nausea. She is basically just drinking fluids. She continues with Velez catheter to bedside drainage. To note liver function studies are very elevated this morning. Will repeat lab test. Medical Exam Vital signs and Labs for Last 24 Hours: Vital Signs Temp Pulse Pulse Resp BP BP Pulse Ox 02/15/24 07:50 97.9 F 81 16 138/69 94 L 02/15/24 06:53 02/15/24 05:00 02/15/24 04:00 98.4 F 80 17 142/70 H 91 L 02/15/24 02:57 02/15/24 01:00 02/15/24 00:00 98.4 F 90 16 129/69 95 02/14/24 23:00 02/14/24 21:00 02/14/24 20:00 02/14/24 19:50 99 F 85 18 152/73 H 94 L 02/14/24 18:51 02/14/24 18:50 98.4 F 82 20 148/68 H 96 02/14/24 17:50 98.1 F 81 20 151/78 H 97 02/14/24 16:50 98.1 F 86 20 141/78 H 95 02/14/24 16:47 02/14/24 15:50 98.1 F 80 20 151/74 H 96 02/14/24 15:20 98.1 F 86 20 128/88 97 02/14/24 15:00 02/14/24 14:50 98.3 F 73 20 121/83 98 02/14/24 14:20 98.3 F 72 20 130/83 99 02/14/24 13:59 18 02/14/24 13:50 98.3 F 70 20 132/67 97 02/14/24 13:35 98.3 F 69 20 131/61 95 02/14/24 13:20 98.3 F 75 20 127/68 96 02/14/24 13:05 98.3 F 63 20 138/63 97 02/14/24 13:05 77 18 110/54 L 97 02/14/24 12:55 71 18 112/58 L 96 02/14/24 12:45 80 18 106/53 L 97 02/14/24 12:39 97.3 F L 81 20 106/60 L 02/14/24 12:35 97.3 F L 77 18 106/60 L 97 02/14/24 09:00 O2 Del Method 02/15/24 07:50 Room Air 02/15/24 06:53 Room Air 02/15/24 05:00 Room Air 02/15/24 04:00 Room Air 02/15/24 02:57 Room Air 02/15/24 01:00 Room Air 02/15/24 00:00 Room Air 02/14/24 23:00 Room Air 02/14/24 21:00 Room Air 02/14/24 20:00 Room Air 02/14/24 19:50 Room Air 02/14/24 18:51 Room Air 02/14/24 18:50 Room Air 02/14/24 17:50 Room Air 02/14/24 16:50 Room Air 02/14/24 16:47 Room Air 02/14/24 15:50 Room Air 02/14/24 15:20 Room Air 02/14/24 15:00 Room Air 02/14/24 14:50 Room Air 02/14/24 14:20 Room Air 02/14/24 13:59 02/14/24 13:50 Room Air 02/14/24 13:35 Room Air 02/14/24 13:20 Room Air 02/14/24 13:05 Room Air 02/14/24 13:05 Room Air 02/14/24 12:55 Room Air 02/14/24 12:45 Room Air 02/14/24 12:39 02/14/24 12:35 Room Air 02/14/24 09:00 Room Air Intake and Output 02/14/24 02/15/24 02/15/24 19:59 03:59 11:59 Intake Total 2960 / 2960 188 / 3148 534 / 3682 Output Total 1300 / 1300 350 / 1650 Balance 1660 / 1660 188 / 1848 184 / 2032 Intake: Intake, Oral Amount 510 / 510 Intake, Total IV Amount 2450 / 2450 188 / 2638 534 / 3172 0.9 % Sodium Chloride 1000ML 1, 250 / 250 188 / 438 484 / 922 000 ml @ 50 mls/hr IV .Q20H [facility] Rx#:[id number] Clindamycin Phosphate/D5w 900 50 / 50 mg In 50 ml @ 100 mls/hr IV Q8H [facility] Rx#:[id number] Output: Output, Urine Amount 1300 / 1300 350 / 1650 Other: Number of Unmeasured Voids 0 Weight 156 lb Patient Weight 02/15/24 11:59 Weight 156 lb Laboratory Results - last 24 hr 02/14/24 13:08: Urine Color Yellow, Urine Appearance Clear, Urine pH 6.5, Ur Specific [place] 1.020, Urine Protein 1+, Urine Glucose (UA) Negative, Urine Ketones Negative, Urine Blood 2+, Urine Nitrate Negative, Urine Bilirubin Negative, Urine Urobilinogen 0.2, Ur Leukocyte Esterase Negative, Urine RBC 3-5, Urine WBC 5-10, Ur Squamous Epith Cells Occasional, Urine Bacteria Occassional 02/15/24 05:24: WBC 9.4, RBC 3.25 L, Hgb 10.6 L, Hct 31.3 L, MCV 96.4, MCH 32.5 H, MCHC 33.7, RDW 15.8, Plt Count 205 D, MPV 7.5, Neut % (Auto) 74.0, Lymph % (Auto) 17.1, [place] % (Auto) 8.3, Eos % (Auto) 0.4, Baso % (Auto) 0.2, Neut # (Auto) 7.0, Lymph # (Auto) 1.6, [place] # (Auto) 0.8, Eos # (Auto) 0.0, Baso # (Auto) 0.0, Sodium 138, Potassium 3.4 L, Chloride 107, Carbon Dioxide 31 H, Anio n Gap 3.4 L, BUN 16, Creatinine 1.00, Estimated Creat Clear 46, Estimated GFR 53 L, Est GFR ( Amer) 64, Glucose 96, Calcium 8.1 L, Total Bilirubin 2.0 H, AST 147 H D, ALT 195 H D, Alkaline Phosphatase 139 H, Total Protein 5.2 L D, Albumin 2.8 L D, Globulin 2.4, Albumin/Globulin Ratio 1.2 I & O for Labs for Last 24 Hours: Intake & Output 02/12/24 02/13/24 02/14/24 02/15/24 11:59 11:59 11:59 11:59 Intake Total 365 / 365 3682 / 3682 Output Total 0 / 0 1650 / 1650 Balance 365 / 365 2031 Weight 150 lb 15.984 oz 156 lb Constitutional: Present no acute distress Comment:: Conversant this morning. Respiratory: Present CTA bilaterally Cardiac: Present Reg Rate and Rhythm GI: Present soft and normal bowel sounds; Absent distention, tenderness or guarding Extremities: Absent edema or calf tenderness Comment:: Right hip dressing is clean and dry Neuro: Present alert, awake and oriented x 3 Assessment and Plan *Assessment and plan (1) Closed intertrochanteric fracture of right femur: Status: Acute Qualifiers: Encounter type: initial encounter Fracture alignment: nondisplaced Qualified Code(s): S72.144A - Nondisplaced intertrochanteric fracture of right femur, initial encounter for closed fracture Category: Medical Code(s): S72.141A - Displaced intertrochanteric fracture of right femur, initial encounter for closed fracture (2) Fall: Status: Acute Category: Medical Code(s): W19.XXXA - Unspecified fall, initial encounter (3) Irritable bowel syndrome with diarrhea: Status: Acute Category: Medical Code(s): K58.0 - Irritable bowel syndrome with diarrhea (4) Hypothyroidism: Status: Acute Category: Medical Code(s): E03.9 - Hypothyroidism, unspecified (5) Presbycusis of both ears: Status: Acute Category: Medical Code(s): H91.13 - Presbycusis, bilateral (6) Encounter for postoperative care: Status: Acute Category: Medical Code(s): Z48.89 - Encounter for other specified surgical aftercare Plan Will repeat liver function studies. Postoperative care as per ortho. Patient noted to be weightbearing as tolerated. Encourage fluids. Pulmonary hygiene. Dr. Sam entry - Saw patient, agree with above note.
[2024-02-15 08:59] LABS: HCV Ab Non Reactive (Non Reactive)
[2024-02-15 09:05] LABS: Alanine Aminotransferase 189 U/L (12-78); Albumin/Globulin Ratio 1.3 (1.1-1.8); Alkaline Phosphatase 139 U/L (38-126); Anion Gap 2.5 mEq/L (5-15); Bilirubin,Total 1.9 mg/dl (0.2-1.3); Blood Urea Nitrogen 16 mg/dl (7-17); Calcium 8.1 mg/dl (8.4-10.2); Carbon Dioxide 32 mmol/L (22.0-30.0); Chloride 107 mmol/L (98-107); Creatinine Clearance Estimated 46 mL/min (50-200); Estimated Glomerular Filt Rate 53 ml/min (>60); GFR (African American) 64 ML/MIN (>60); Globulin 2.3 g/dL (1.3-3.2); Glucose 102 mg/dl (74-100); Potassium 3.5 mmoL/L (3.5-5.1); Sodium 138 mmol/L (136-145); Total Protein,Serum 5.3 g/dl (6.3-8.2)
--- NOTE | 2024-02-15 09:05 | EXP.SURG.PN ---
Subjective Narrative: Patient stable, denies GARLAND, dizziness, CP, SOB, N/v, calf pain, paresthesias in operative leg. lying comfortably in bed, no events overnight. Pain is 5/10, controlled with pain medications. States she would like toget out of bed to use commode. + bateman. Exam Data for Last 24 hours Vital signs and Labs for Last 24 Hours: Temp Pulse Resp BP Pulse Ox O2 Del Method 97.9 F 81 16 138/69 94 L Room Air 02/15/24 07:50 02/15/24 07:50 02/15/24 07:50 02/15/24 07:50 02/15/24 07:50 02/15/24 07:50 Laboratory Results - last 24 hr 02/13/24 05:49: Hepatitis C Antibody Non reactive 02/14/24 13:08: Urine Color Yellow, Urine Appearance Clear, Urine pH 6.5, Ur Specific [place] 1.020, Urine Protein 1+, Urine Glucose (UA) Negative, Urine Ketones Negative, Urine Blood 2+, Urine Nitrate Negative, Urine Bilirubin Negative, Urine Urobilinogen 0.2, Ur Leukocyte Esterase Negative, Urine RBC 3-5, Urine WBC 5-10, Ur Squamous Epith Cells Occasional, Urine Bacteria Occassional 02/15/24 05:24: WBC 9.4, RBC 3.25 L, Hgb 10.6 L, Hct 31.3 L, MCV 96.4, MCH 32.5 H, MCHC 33.7, RDW 15.8, Plt Count 205 D, MPV 7.5, Neut % (Auto) 74.0, Lymph % (Auto) 17.1, [place] % (Auto) 8.3, Eos % (Auto) 0.4, Baso % (Auto) 0.2, Neut # (Auto) 7.0, Lymph # (Auto) 1.6, [place] # (Auto) 0.8, Eos # (Auto) 0.0, Baso # (Auto) 0.0, Sodium 138, Potassium 3.4 L, Chloride 107, Carbon Dioxide 31 H, Anion Gap 3.4 L, BUN 16, Creatinine 1.00, Estimated Creat Clear 46, Estimated GFR 53 L, Est GFR ( Amer) 64, Glucose 96, Calcium 8.1 L, Total Bilirubin 2.0 H, AST 147 H D, ALT 195 H D, Alkaline Phosphatase 139 H, Total Protein 5.2 L D, Albumin 2.8 L D, Globulin 2.4, Albumin/Globulin Ratio 1.2 I & O for Last 24 hours: Intake & Output 02/12/24 02/13/24 02/14/24 02/15/24 23:59 23:59 23:59 23:59 Intake Total 3513 / 3513 534 / 534 Output Total 1300 / 1300 350 / 350 Balance 2213 / 2213 184 / 184 Weight 68.492 kg 68.492 kg 70.76 kg Detailed Lower Extremity Exam Comments: Dressing C/D/I. SILT 1st DWS/PA equal b/l. +EHL/FHL/GS/TA. +2 DP. Thigh Soft, Calf SNT. Progress Note: A&P Assessment and plan (1) Closed intertrochanteric fracture of right femur: Status: Acute Assessment and plan: PT/OT: WBAT to RLE. Device PRN ambulation DVT ppx with Xarelto per medical team. Currently on ASA 81mg BID. Will d/w Dr. Reyes. Ice to surgical site PRN comfort. Pain control PRN. Discharge planning per PT recs. (2) Fall: Status: Acute (3) Irritable bowel syndrome with diarrhea: Status: Acute (4) Hypothyroidism: Status: Acute (5) Presbycusis of both ears: Status: Acute (6) Encounter for postoperative care: Status: Acute
[2024-02-15 09:06] LABS: Aspartate Amino Transferase 128 U/L (14-36)
[2024-02-15] MEDS: IRBESARTAN 75MG TABLET 75 MG PO (09:42)
[2024-02-15] MEDS: ASPIRIN 81MG CHEWABLE TABLET 81 MG PO ×2 (09:42→20:03)
[2024-02-15] MEDS: LEVOTHYROXINE 75MCG (0.075MG) TAB 75 MCG PO (09:42)
[2024-02-15] MEDS: EZETIMIBE 10MG TABLET 10 MG PO (09:42)
--- NOTE | 2024-02-15 09:58 | HMH.OTEV ---
OT Inpatient Evaluation Rehab OT IP Evaluation Start: 02/15/24 08:34 Freq: ONCE Status: Active Protocol: Document 02/15/24 09:50 [facility] (Rec: 02/15/24 09:58 [facility] [id number]) Rehab OT IP Assessment Subjective History Pt oriented x 3 on arrival. Pt agreeable to engage in therapy evaluation. Pt admitted on on 02/13/24 due to right hip fx from a fall at home. Pt required a cephalomedullary nailing of right proximal femur. History and physical: Ms. De Los Santos is an 83-year-old female with a history of hypertension, hyperlipidemia, hypothyroidism, renal insufficiency, Neha myalgia rheumatica, irritable bowel syndrome, osteoarthritis, and degenerative joint disease of bilateral legs who was brought into the [facility] emergency room for evaluation per EMS after mechanical fall at home. Patient states she was turning in her kitchen and tripped over her own feet causing the fall. She and her were unable to get her up due to the pain in her hip. Thus they called EMS. She denies any prefall chest pain, shortness of breath, dizziness or syncopal episode. She has been in her usual state of health with eating and drinking normally. She uses a cane for walking when outside of the home. Subjective I have a lot of pain when I move. Prior to being in the hospital , pt lived at home with her . Pt reports she was normally independent with all ADLs such as dressing, bathing , and feeding. Pt explains that normally she completes minimal IADLs such as light cooking and light cleaning. Pt's does do the heaving cleaning like vacuuming. She no longer drives. Pt does use a cane out in public. Pt and her live in a one story home with one step in the home . Objective Patient Orientation Person,Place,Birthday Right Upper Extremity Gross ROM WFL Left Upper Extremity Gross ROM WFL Bed Mobility bed mobility-scooting,bed mobility - supine/sit Assist Level Maximum x 2 (75% assist) Transfer Training Sit/Stand Transfer Assist Level Moderate x 2 (50% assist) Rehab OT IP prob,goals,plan Problems Date of Evaluation: 02/15/24 OT IP Problems Bed Mobility,Transfers,Balance ,Self care,Safety Rehab Potential Rehab Potential Good Equipment Needs Assistive Devices Rolling / Wheeled Walker Plan OT intervention Plan Bed Mobility,Transfers,Balance ,Self care,Safety,Therapeutic Exercise OT Plan Frequency Daily Duration LOS Discharge Goals Bed Mobility Ability Assistance x1 Sit to Stand Chair Transfer Ability Moderate x 1 (50% assist) Chair Transfer Ability Moderate x 1 (50% assist) Chair Transfer Technique Sit to/from Ambulatory Chair Transfer Assistive Devices Rolling Walker Lower Body Dressing Ability Moderate Assistance Upper Body Dressing Ability Minimal Assistance Bathing Ability Moderate Assistance Performing Toilet Hygiene Ability Moderate Assistance Overall Commode/Toilet Transfer Ability Moderate Assistance Commode/Toilet Transfer Technique Sit to/from Ambulatory Commode/Toilet Transfer Assistive Grab Bars Devices Oral Care Assist Minimal Assistance Decrease in Endurance Yes Discharge Plan OT Discharge Plan Pt will continue to be seen for OT services while at [facility]. Pt would benefit most from short term rehab at SNF upon discharge from hospital. Continued skilled therapy is important in order for patient to improve strength, safety, endurance, ADL independence, and functional transfers to reach PLOF. Therapist also recommends a rolling walker for increased safety during functional transfers. Eval Complexity Eval Charge Codes 10350 - Moderate Complexity PHYSICIAN CERTIFICATION: I certify the specified therapy services for Marilyn De Los Santos are required, authorized, and reviewed every 30 days.
--- NOTE | 2024-02-15 10:49 | HMH.PTEV ---
Physical Therapy Evaluation Rehab PT IP Evaluation Start: 02/14/24 12:15 Freq: ONCE Status: Active Protocol: Document 02/15/24 10:02 ERNESTINA (Rec: 02/15/24 10:49 ERNE[facility] [id number]) Subjective/History History History Patient is an 83-year-old female with a history of hypertension, hyperlipidemia, hypothyroidism, renal insufficiency, Neha myalgia rheumatica, irritable bowel syndrome, osteoarthritis, and degenerative joint disease of bilateral legs who was brought into the [facility] emergency room for evaluation per EMS after mechanical fall at home. Pt had cephalomedullary nailing right proximal femur on . Pt states she was previously ambulating w/ a cane, has multiple steps to navigate around her residence, lives w/ her , and was previously independent w/ all ADLs. Subjective Subjective Pt reports pain in the R hip and R thigh this date during movement, both AROM and PROM of the LE. Pt is 3x oriented this morning and consents to therapy services. Pt reports dizziness when transitioning between positions, supine-to- sit and from art-ow-[id number]. New diagnosis of cancer in past 12 No months? Rehab PT IP Eval Objective Appearance Patient Behavior Appropriate,Cooperative Patient Orientation Person,Place,Birthday, Situation Difficulty following instructions none Speech Pattern Clear,Appropriate,Coherent Ambulation Patient Able to Ambulate No Balance Ability to Arise Able, uses arms to help Sitting Balance Steady, safe Standing Balance Unsteady Dynamic Sitting Balance Ability Good Dynamic Standing Balance Ability Poor Transfers Bed Transfer Ability Moderate x 2 (50% assist) Sit to Stand Bed Transfer Ability Moderate x 2 (50% assist) Rehab PT IP prob,goals,plan Problems Date of Evaluation: 02/15/24 PT IP Problems Bed Mobility,Transfers,Gait, Balance,Safety Rehab Potential Rehab Potential Good Equipment Needs Assistive Devices Rolling / Wheeled Walker Plan PT Intervention Plan Bed Mobility,Transfers,Balance ,Therapeutic Exercise PT Plan Frequency BID Duration LOS Discharge Goals Bed Transfer Ability Minimal x 1 (25% assist) Sit to Stand Chair Transfer Ability Minimal x 2 (25% assist) Ambulation Assistive Device Rolling Walker Ambulation Distance (feet) 10 Discharge Plan PT Discharge Plan Pt would be most appropriate for rehab placement to receive skilled PT services for progression of strength, balance, transfers, and gait for return to [facility]. Eval Complexity Eval Charge Codes 31190 - High Complexity PHYSICIAN CERTIFICATION: I certify the specified therapy services for Marilyn Boswell Magali are required, authorized, and reviewed every 30 days.
--- NOTE | 2024-02-15 11:04 | SW/DCPLANNER ---
Addendum entered by Zina Jain 02/16/24 09:46: Per [facility] patient has been approved. Patient is medically stable for discharge today. Addendum entered by Zina Jain 02/15/24 12:56: [facility] stated that she can accept this patient and will start precert. Original Note: I spoke w/ this patient and her regarding plans once medically stable for discharge. PT/OT evaluated patient and recommended SNF level of care. Patient and her are agreeable to placement and prefer [facility]. Patient information has been faxed to [facility]. I will continue to follow up w/ [facility] MD and patient/family. Discharge date is unknown at this time.
[2024-02-15 11:15] VITALS: BMI 30.6
--- NOTE | 2024-02-15 15:39 | PC.NURSE ---
Velez cath removed at 1500 per MD rojas order to take out day after procedure.
[2024-02-15 16:00] VITALS: BP 152/77; PULSE 98; RESP 16; TEMP 36.6; O2SAT 94
--- NOTE | 2024-02-15 16:51 | PC.NURSE ---
Pt alert and oriented. Pt c/o right hip pain multiple times today and has been medicated per JUN. Ice pack also applied as need for pain. Dressing on right hip C/D/I. PT/OT worked with pt today twice and she got up tp bedside chair. Assist x2 for transfers to bedside commode or chair. Velez removed today, purewick now in place. Family at bedside most of shift. Employee from [facility] came and spoke to pt this evening about short term rehab. Pt now resting comfortably in bed with no complaints at this time.
[2024-02-15 20:00] VITALS: BP 154/79; PULSE 100; RESP 18; TEMP 36.8; O2SAT 96
[2024-02-16] VITALS: BP 138/76; PULSE 93; RESP 18; TEMP 37.1; O2SAT 95
[2024-02-16] MEDS: 0.9 % SODIUM CHLORIDE 1000ML 1,000 ML 50 ML IV (00:42)
[2024-02-16 04:00] VITALS: BMI 30.4
--- NOTE | 2024-02-16 04:13 | PC.NURSE ---
83 yo female pt has remained A/O X 4 this shift. She was able to void after bateman was removed earlier previous shift. She was medicated for pain earlier in the shift which she reports as effective. She has denies need for further pain meds throughout shift. Dressing to right hip C/D/I. Pt also continues to use ice packs to the hip area. VSS for pt.
[2024-02-16 05:18] VITALS: BP 158/79; PULSE 92; RESP 16; TEMP 37.2; O2SAT 94
[2024-02-16] MEDS: LEVOTHYROXINE 75MCG (0.075MG) TAB 75 MCG PO (06:08)
[2024-02-16] MEDS: OXYCODONE 5MG W/APAP 325MG TABLET 1 EACH PO (06:08)
[2024-02-16 07:09] LABS: Basophils % 0.2 % (0.1-2.0); Chloride 102 mmol/L (98-107); Eosinophils # 0.1 K/mm3 (0.0-0.4); Eosinophils % 0.9 % (0.1-12.0); Hematocrit 33.2 % (37.0-47.0); Lymphocytes # 1.8 K/mm3 (0.7-4.5); Lymphocytes % 16.2 % (10-50); Mean Corpuscular HGB Conc 33.1 g/dL (31.8-35.4); Mean Corpuscular Hemoglobin 32.1 pg (27.0-31.2); Mean Platelet Volume 7.7 fl (7.4-10.4); Monocytes # 0.8 K/mm3 (0.1-1.0); Monocytes % 7.3 % (1.7-9.3); Neutrophils # 8.4 K/mm3 (1.8-7.8); Neutrophils % 75.3 % (37.0-80.0); Platelet Count 209 K/mm3 (142-424); Potassium 3.3 mmoL/L (3.5-5.1); Red Blood Count 3.42 M/mm3 (4.20-5.40); Red Cell Distribution Width 15.6 % (11.5-17.5); Sodium 133 mmol/L (136-145); White Blood Count 11.2 K/mm3 (4.8-10.8)
[2024-02-16 07:12] LABS: Alanine Aminotransferase 122 U/L (12-78); Albumin/Globulin Ratio 1.1 (1.1-1.8); Alkaline Phosphatase 149 U/L (38-126); Anion Gap 6.3 mEq/L (5-15); Aspartate Amino Transferase 57 U/L (14-36); Bilirubin,Total 1.6 mg/dl (0.2-1.3); Blood Urea Nitrogen 11 mg/dl (7-17); Calcium 8.5 mg/dl (8.4-10.2); Carbon Dioxide 28 mmol/L (22.0-30.0); Creatinine Clearance Estimated 46 mL/min (50-200); Estimated Glomerular Filt Rate 60 ml/min (>60); GFR (African American) 72 ML/MIN (>60); Globulin 2.7 g/dL (1.3-3.2); Glucose 95 mg/dl (74-100); Total Protein,Serum 5.7 g/dl (6.3-8.2)
[2024-02-16 07:44] VITALS: BP 134/69; PULSE 87; RESP 18; TEMP 37; O2SAT 94
--- NOTE | 2024-02-16 08:26 | EXP.ACUTE.PN ---
Subjective *Date: 02/16/24 *Time: 09:13 Interval history: Patient states she did not rest well last night. She is tired this am. Has been eating very little. Got up and sat in the chair yesterday. Still requiring pain medication. She states she really only has pain with movement. Medical Exam Vital signs and Labs for Last 24 Hours: Vital Signs Temp Pulse Resp BP Pulse Ox O2 Del Method 02/16/24 07:44 98.6 F 87 18 134/69 94 L Room Air 02/16/24 05:18 99.0 F 92 H 16 158/79 H 94 L Room Air 02/16/24 04:56 Room Air 02/16/24 03:00 Room Air 02/16/24 01:00 Room Air 02/16/24 00:00 98.7 F 93 H 18 138/76 95 Room Air 02/15/24 23:00 Room Air 02/15/24 21:00 Room Air 02/15/24 20:00 Room Air 02/15/24 20:00 98.3 F 100 H 18 154/79 H 96 Room Air 02/15/24 18:41 Room Air 02/15/24 17:00 Room Air 02/15/24 16:00 97.8 F 98 H 16 152/77 H 94 L Room Air 02/15/24 15:00 Room Air 02/15/24 13:00 Room Air 02/15/24 11:00 Room Air 02/15/24 09:00 Room Air Intake and Output 02/15/24 02/16/24 02/16/24 19:59 03:59 11:59 Intake Total 230 / 480 250 / 480 Output Total 0 / 0 0 / 0 Balance 230 / 480 250 / 480 0 / 480 Intake: Intake, Oral Amount 230 / 230 Intake, Total IV Amount 250 / 250 0.9 % Sodium Chloride 1000ML 1, 250 / 250 000 ml @ 50 mls/hr IV .Q20H [facility] Rx#:[id number] Output: Output, Urine Amount 0 / 0 0 / 0 Other: Number of Unmeasured Voids 1 2 Weight 154 lb 12.232 oz Patient Weight 02/16/24 11:59 Weight 154 lb 12.232 oz Laboratory Results - last 24 hr 02/13/24 05:49: Hepatitis C Antibody Non reactive 02/15/24 08:43: Sodium 138, Potassium 3.5, Chloride 107, Carbon Dioxide 32 H, Anion Gap 2.5 L, BUN 16, Creatinine 1.00, Estimated Creat Clear 46, Estimated GFR 53 L, Est GFR ( Amer) 64, Glucose 102 H, Calcium 8.1 L, Total Bilirubin 1.9 H, AST 128 H, ALT 189 H, Alkaline Phosphatase 139 H, Total Protein 5.3 L, Albumin 3.0 L, Globulin 2.3, Albumin/Globulin Ratio 1.3 02/16/24 05:31: WBC 11.2 H, RBC 3.42 L, Hgb 11.0 L, Hct 33.2 L, MCV 97.0, MCH 32.1 H, MCHC 33.1, RDW 15.6, Plt Count 209, MPV 7.7, Neut % (Auto) 75.3, Lymph % (Auto) 16.2, [place] % (Auto) 7.3, Eos % (Auto) 0.9, Baso % (Auto) 0.2, Neut # (Auto) 8.4 H, Lymph # (Auto) 1.8, [place] # (Auto) 0.8, Eos # (Auto) 0.1, Baso # (Auto) 0.0, Sodium 133 L, Potassium 3.3 L, Chloride 102, Carbon Dioxide 28, Anion Gap 6.3, BUN 11 D, Creatinine 0.90, Estimated Creat Clear 46, Estimated GFR 60, Est GFR ( Amer) 72, Glucose 95, Calcium 8.5, Total Bilirubin 1.6 H, AST 57 H D, ALT 122 H D, Alkaline Phosphatase 149 H, Total Protein 5.7 L, Albumin 3.0 L, Globulin 2.7, Albumin/Globulin Ratio 1.1 I & O for Labs for Last 24 Hours: Intake & Output 02/13/24 02/14/24 02/15/24 02/16/24 11:59 11:59 11:59 11:59 Intake Total 365 / 365 3742 / 3742 480 / 480 Output Total 0 / 0 1650 / 1650 0 / 0 Balance 365 / 365 2091 / 2091 480 / 480 Weight 150 lb 15.984 oz 155 lb 15.985 oz 154 lb 12.232 oz Constitutional: Present no acute distress Respiratory: Present CTA bilaterally Cardiac: Present Reg Rate and Rhythm GI: Present soft and normal bowel sounds; Absent distention, tenderness or guarding Extremities: Absent edema or calf tenderness Comment:: Right hip dressing is clean and dry Neuro: Present alert, awake and oriented x 3 Assessment and Plan *Assessment and plan (1) Closed intertrochanteric fracture of right femur: Status: Acute Qualifiers: Encounter type: initial encounter Fracture alignment: nondisplaced Qualified Code(s): S72.144A - Nondisplaced intertrochanteric fracture of right femur, initial encounter for closed fracture Category: Medical Code(s): S72.141A - Displaced intertrochanteric fracture of right femur, initial encounter for closed fracture (2) Fall: Status: Acute Category: Medical Code(s): W19.XXXA - Unspecified fall, initial encounter (3) Irritable bowel syndrome with diarrhea: Status: Acute Category: Medical Code(s): K58.0 - Irritable bowel syndrome with diarrhea (4) Hypothyroidism: Status: Acute Category: Medical Code(s): E03.9 - Hypothyroidism, unspecified (5) Presbycusis of both ears: Status: Acute Category: Medical Code(s): H91.13 - Presbycusis, bilateral (6) Encounter for postoperative care: Status: Acute Category: Medical Code(s): Z48.89 - Encounter for other specified surgical aftercare Plan Liver tests and bilirubin have improved. Potassium is low and WBC is slightly elevated. Will replace potassium. Dr. Sam entry - Saw patient, agree with above note. OK for discharge to [place] today.
[2024-02-16] MEDS: EZETIMIBE 10MG TABLET 10 MG PO (09:50)
[2024-02-16] MEDS: ASPIRIN 81MG CHEWABLE TABLET 81 MG PO (09:50)
[2024-02-16] MEDS: POTASSIUM CHLORIDE 20MEQ TAB 20 MEQ PO (09:50)
[2024-02-16] MEDS: IRBESARTAN 75MG TABLET 75 MG PO (09:50)
--- NOTE | 2024-02-16 12:24 | EXP.SURG.PN ---
Subjective Narrative: Patient stable, denies GARLAND, dizziness, CP, SOB, N/v, calf pain, paresthesias in operative leg. lying comfortably in bed, no events overnight. Pain is 3/10, controlled with pain medications but states she had a sleepless night due t pain. Exam Data for Last 24 hours Vital signs and Labs for Last 24 Hours: Temp Pulse Resp BP Pulse Ox O2 Del Method 98.6 F 87 18 134/69 94 L Room Air 02/16/24 07:44 02/16/24 07:44 02/16/24 07:44 02/16/24 07:44 02/16/24 07:44 02/16/24 08:00 Laboratory Results - last 24 hr 02/16/24 05:31: WBC 11.2 H, RBC 3.42 L, Hgb 11.0 L, Hct 33.2 L, MCV 97.0, MCH 32.1 H, MCHC 33.1, RDW 15.6, Plt Count 209, MPV 7.7, Neut % (Auto) 75.3, Lymph % (Auto) 16.2, [place] % (Auto) 7.3, Eos % (Auto) 0.9, Baso % (Auto) 0.2, Neut # (Auto) 8.4 H, Lymph # (Auto) 1.8, [place] # (Auto) 0.8, Eos # (Auto) 0.1, Baso # (Auto) 0.0, Sodium 133 L, Potassium 3.3 L, Chloride 102, Carbon Dioxide 28, Anion Gap 6.3, BUN 11 D, Creatinine 0.90, Estimated Creat Clear 46, Estimated GFR 60, Est GFR ( Amer) 72, Glucose 95, Calcium 8.5, Total Bilirubin 1.6 H, AST 57 H D, ALT 122 H D, Alkaline Phosphatase 149 H, Total Protein 5.7 L, Albumin 3.0 L, Globulin 2.7, Albumin/Globulin Ratio 1.1 I & O for Last 24 hours: Intake & Output 02/13/24 02/14/24 02/15/24 02/16/24 23:59 23:59 23:59 23:59 Intake Total 3513 / 3513 824 / 1074 490 / 490 Output Total 1300 / 1300 350 / 350 0 / 0 Balance 2213 / 2213 474 / 724 490 / 490 Weight 68.492 kg 68.492 kg 70.76 kg 70.2 kg Detailed Lower Extremity Exam Comments: Dressing C/D/I. SILT 1st DWS/PA equal b/l. +EHL/FHL/GS/TA. +2 DP. Thigh Soft, Calves SNT. Progress Note: A&P Assessment and plan (1) Closed intertrochanteric fracture of right femur: Status: Acute Assessment and plan: PT/OT: WBAT to RLE. Device PRN ambulation DVT ppx with Xarelto per medical team. Ice to surgical site PRN comfort. Pain control PRN. Discharge planning per PT recs. Follow up in office 2 weeks post-op for staple removal. (2) Fall: Status: Acute (3) Irritable bowel syndrome with diarrhea: Status: Acute (4) Hypothyroidism: Status: Acute (5) Presbycusis of both ears: Status: Acute (6) Encounter for postoperative care: Status: Acute
--- NOTE | 2024-02-16 12:32 | P.DS_ITS ---
General Admission date:: 02/13/24 Discharge date: 02/16/24 HPI HPI HPI: Ms. De Los Santos is an 83-year-old female with a history of hypertension, hyperlipidemia, hypothyroidism, renal insufficiency, Neha myalgia rheumatica, irritable bowel syndrome, osteoarthritis, and degenerative joint disease of bilateral legs who was brought into the [facility] emergency room for evaluation per EMS after mechanical fall at home. Patient states she was turning in her kitchen and tripped over her own feet causing the fall. She and her were unable to get her up due to the pain in her hip. Thus they called EMS. She denies any prefall chest pain, shortness of breath, dizziness or syncopal episode. She has been in her usual state of health with eating and drinking normally. She uses a cane for walking when outside of the home. Orthopedics consulted regarding definitive treatment for hip fracture Hospital Course Hospital Course Hospital Course: The patient was admitted for pain management and orthopedics was consulted. She was seen by Dr. Reyes who wanted to perform a cephalomedullary nailing of the right proximal femur. The patient was in agreement and that she had the surgery on 02/14/2024. She tolerated the procedure well but did develop elevated liver function test and bilirubin. This was rechecked on 02/16/2024 and did improve. She was able to work with therapy and sit in a chair and use a walker. She had pain only with movement and pain medication did help. She was able to drink but did not have much of an appetite. Orthopedics felt she could weight-bear as tolerated to the right lower extremity and use her walker for ambulation. They wanted to have DVT prophylaxis with Xarelto. The patient was stable to be discharged on 02/16/2024 to [facility] for rehabilitation. She will follow-up with Dr. Reyes and Dr. Greene. Exam Data for Last 24 hours Vital signs and Labs for Last 24 Hours: Temp Pulse Resp BP Pulse Ox O2 Del Method 98.6 F 87 18 134/69 94 L Room Air 02/16/24 07:44 02/16/24 07:44 02/16/24 07:44 02/16/24 07:44 02/16/24 07:44 02/16/24 08:00 Laboratory Results - last 24 hr 02/16/24 05:31: WBC 11.2 H, RBC 3.42 L, Hgb 11.0 L, Hct 33.2 L, MCV 97.0, MCH 32.1 H, MCHC 33.1, RDW 15.6, Plt Count 209, MPV 7.7, Neut % (Auto) 75.3, Lymph % (Auto) 16.2, Phelps % (Auto) 7.3, Eos % (Auto) 0.9, Baso % (Auto) 0.2, Neut # (Auto) 8.4 H, Lymph # (Auto) 1.8, Phelps # (Auto) 0.8, Eos # (Auto) 0.1, Baso # (Auto) 0.0, Sodium 133 L, Potassium 3.3 L, Chloride 102, Carbon Dioxide 28, Anion Gap 6.3, BUN 11 D, Creatinine 0.90, Estimated Creat Clear 46, Estimated GFR 60, Est GFR ( Amer) 72, Glucose 95, Calcium 8.5, Total Bilirubin 1.6 H, AST 57 H D, ALT 122 H D, Alkaline Phosphatase 149 H, Total Protein 5.7 L, Albumin 3.0 L, Globulin 2.7, Albumin/Globulin Ratio 1.1 I & O for Last 24 hours: Intake & Output 02/14/24 02/15/24 02/16/24 02/17/24 11:59 11:59 11:59 11:59 Intake Total 365 / 365 3742 / 3742 720 / 720 Output Total 0 / 0 1650 / 1650 0 / 0 Balance 365 / 365 2091 / 2091 720 / 720 Weight 150 lb 15.984 oz 155 lb 15.985 oz 154 lb 12.232 oz Narrative: Constitutional Constitutional: no acute distress Comments: Awake and conversant *Routine HEENT Exam Head: Present normocephalic and atraumatic Eye: Present PERRL; Absent conjunctival icterus, scleral injection or conjunctivae pink ENT: Present mucous membranes moist and oropharynx clear *Routine Neck Exam Neck: Present supple; Absent carotid bruit, lymphadenopathy or thyromegaly *Routine Respiratory Exam Respiratory: Present CTA bilaterally (Anteriorly and posteriorly) *Routine Cardiovascular Exam Cardiovascular: Present RRR and ectopic (Rare) *Routine Abdominal Exam Abdominal: Present soft and normoactive bowel sounds; Absent tenderness, distended or guarding *Routine Rectal Exam Rectal:: deferred *Routine Genitalia Exam Genitalia:: deferred *Routine Extremities Exam Extremities: Present pulses intact; Absent edema or calf tenderness Comments: Tender to palpation over the right hip *Routine Skin Exam Skin: Present dry and warm *Routine Neurological Exam Neurological: Present alert and oriented X3 Results Data Completed and Pending Labs on day of discharge: Labs from last 24 hours 02/16/24 05:31 WBC 11.2 H RBC 3.42 L Hgb 11.0 L Hct 33.2 L MCV 97.0 MCH 32.1 H MCHC 33.1 RDW 15.6 Plt Count 209 MPV 7.7 Neut % (Auto) 75.3 Lymph % (Auto) 16.2 Phelps % (Auto) 7.3 Eos % (Auto) 0.9 Baso % (Auto) 0.2 Neut # (Auto) 8.4 H Lymph # (Auto) 1.8 Phelps # (Auto) 0.8 Eos # (Auto) 0.1 Baso # (Auto) 0.0 Sodium 133 L Potassium 3.3 L Chloride 102 Carbon Dioxide 28 Anion Gap 6.3 BUN 11 D Creatinine 0.90 Estimated Creat Clear 46 Estimated GFR 60 Est GFR ( Amer) 72 Glucose 95 Calcium 8.5 Total Bilirubin 1.6 H AST 57 H D ALT 122 H D Alkaline Phosphatase 149 H Total Protein 5.7 L Albumin 3.0 L Globulin 2.7 Albumin/Globulin Ratio 1.1 DS: Diagnosis Discharge Diagnosis (1) Closed intertrochanteric fracture of right femur: Status: Acute Code(s): S72.141A - Displaced intertrochanteric fracture of right femur, initial encounter for closed fracture Qualifiers: Encounter type: initial encounter Fracture alignment: nondisplaced Qualified Code(s): S72.144A - Nondisplaced intertrochanteric fracture of right femur, initial encounter for closed fracture (2) Fall: Status: Acute Code(s): W19.XXXA - Unspecified fall, initial encounter (3) Irritable bowel syndrome with diarrhea: Status: Acute Code(s): K58.0 - Irritable bowel syndrome with diarrhea (4) Hypothyroidism: Status: Acute Code(s): E03.9 - Hypothyroidism, unspecified (5) Presbycusis of both ears: Status: Acute Code(s): H91.13 - Presbycusis, bilateral (6) Encounter for postoperative care: Status: Acute Code(s): Z48.89 - Encounter for other specified surgical aftercare Meds Home Medications and Allergies Home Medications ?Medication ?Instructions ?Recorded ?Confirmed ?Type amlodipine 10 mg-valsartan 320 mg 1 tab PO DAILY 06/07/22 02/13/24 History tablet ezetimibe 10 mg tablet 10 mg PO DAILY 06/07/22 02/13/24 History levothyroxine 75 mcg tablet 75 mcg PO DAILY 06/07/22 02/13/24 History B-complex with vitamin C 1 tab PO DAILY 02/13/24 02/14/24 History diphenoxylate-atropine 2.5 1 - 2 tab PO QID PRN Stomach Upset 02/13/24 02/13/24 History mg-0.025 mg tablet oxycodone-acetaminophen 5 mg-325 1 tab PO Q4HP PRN Moderate To 02/16/24 Rx mg tablet Severe Pain (4-10) #30 tabs rivaroxaban 10 mg tablet (Xarelto) 10 mg PO DAILY #30 tabs 02/16/24 Rx New Prescriptions to Start Prescriptions: oxycodone-acetaminophen Alfredo Sam rivaroxaban [Xarelto] Alfredo Sam Allergies Allergy/AdvReac Type Severity Reaction Status Date / Time Penicillins [PENICILLINS] Allergy Unknown I-RASH Verified 03/27/23 08:46 Sulfa (Sulfonamide Allergy Unknown UNKNOWN Verified 03/27/23 08:46 Antibiotics) [SULFA (SULFONAMIDE ANTIBIOTICS)] Discharge Plan Disposition Patient Disposition: er SNF Condition: Good Discharge Order Discharge Orders: Discharge Order (Routine); Ordered 02/16/24 Ordered By: Alfredo Sam Follow up Plan Follow up with: Cortez Reyes DO [Staff Physician] - 02/24/24 9:30 am (please arrive about 30 minutes early for hip xray) Britton Greene MD [Primary Care Provider] - Enter time for follow up (At [facility]) Prescriptions/Medication Reconciliation: New oxycodone-acetaminophen 5-325 mg Tablet 1 tab PO Q4HP PRN (Reason: Moderate To Severe Pain (4-10)) Qty: 30 0RF Xarelto 10 mg tablet 10 mg PO DAILY Qty: 30 0RF Rx Instructions: for 35 days Continued levothyroxine 75 mcg tablet 75 mcg PO DAILY Patient Comments: TAKE 1 TABLET BY MOUTH ONCE DAILY ezetimibe 10 mg tablet 10 mg PO DAILY Patient Comments: TAKE 1 TABLET BY MOUTH ONCE DAILY amlodipine-valsartan 10-320 mg tablet 1 tab PO DAILY Patient Comments: TAKE 1 TABLET BY MOUTH ONCE DAILY diphenoxylate-atropine 2.5-0.025 mg tablet 1 - 2 tab PO QID PRN (Reason: Stomach Upset) Patient Comments: TAKE 1 TO 2 TABLETS BY MOUTH 4 TIMES DAILY NEEDED FOR NERVOUS STOMACH B-complex with vitamin C Tablet 1 tab PO DAILY Problem Reconciliation Problems Reviewed?: Yes Patient Discharge Instructions ACTIVITY: Limited activity DIET: continue same diet Additional Instructions: Please check CBC and CMP on 02/21/24 Patient Instructions: DI for Hip Replacement, DI for Surgical Site Infection, Posterior Hip Replacement Discharge Instructions Picture Guide Print Language: Kyrgyz Providers Primary Care Provider: Britton Greene Admit Provider: Jayshree Gagnon Attending Provider: Alfredo Sam
== END 2024-02-16 13:34 | DRG 482 ==
LOC: ER 22:53 → 2ND 02-14 02:53
PROVIDERS: Orthopaedic Surgery; Physician Assistant; Admitting Provider Family Medicine; Emergency Provider Emergency Medicine; PCP Family Medicine; Visit Provider Family Medicine
PROC: 0QS636Z Reposition Right Upper Femur with Intramedullary Internal Fixation Device, Percutaneous Approach (ICD-10-PCS; principal; 2024-02-14 10:30)
DX: S72.141A Displaced intertrochanteric fracture of right femur, initial encounter for closed fracture (principal); K58.0 Irritable bowel syndrome with diarrhea; E03.9 Hypothyroidism, unspecified; H91.13 Presbycusis, bilateral; Z79.899 Other long term (current) drug therapy; I10 Essential (primary) hypertension; E78.5 Hyperlipidemia, unspecified; M35.3 Polymyalgia rheumatica; W01.0XXA Fall on same level from slipping, tripping and stumbling without subsequent striking against object, initial encounter; Y92.010 Kitchen of single-family (private) house as the place of occurrence of the external cause; R29.6 Repeated falls
CPT/HCPCS: 36415; 72192; 73502; 73552; 80053; 81001; 85025; 85610; 86803; 87389; 93005; 97163; 97166; 97530; 99285; C1713; C1769; C1776; J2270; J2405; J2704; J3010; J7030; J7120

== ENCOUNTER 2024-02-29 10:20 | Outpatient (CLI) | payer MEDICARE, SELFPAY ==
--- NOTE | 2024-02-29 10:22 | XR_ITS ---
FINAL REPORT CLINICAL HISTORY: broke hip x 2 wks ago COMPARISON: None FINDINGS: RIGHT HIP Two views of the right hip demonstrate a comminuted intertrochanteric fracture with postoperative changes from ORIF. There is mild degenerative change. The visualized bony structures are well aligned. No soft tissue abnormality is seen. IMPRESSION: Comminuted intertrochanteric fracture with postoperative and degenerative changes as above. Authenticated and [facility]
== END 2024-02-29 23:59 | disposition home or self-care (01) ==
LOC: RAD 10:20
PROVIDERS: PCP Family Medicine; Visit Provider Orthopaedic Surgery
DX: S72.144A Nondisplaced intertrochanteric fracture of right femur, initial encounter for closed fracture (principal)
CPT/HCPCS: 73502

== ENCOUNTER 2024-03-28 08:49 | Outpatient (CLI) | payer MEDICARE, SELFPAY ==
--- NOTE | 2024-03-28 08:56 | XR_ITS ---
FINAL REPORT CLINICAL HISTORY: s/p closed fx repair f/u COMPARISON: 02/29/2024 FINDINGS: RIGHT HIP Two views of the right hip demonstrate postoperative changes from ORIF of an intertrochanteric fracture. There is moderate degenerative change of the hip. The visualized bony structures are well aligned. No soft tissue abnormality is seen. IMPRESSION: Stable intertrochanteric fracture with ORIF changes. Reviewed, Interpreted and Dictated by Frankie Garcia III, MD Transcribed by Mallory Reyez Authenticated and [facility]
== END 2024-03-28 23:59 | disposition home or self-care (01) ==
LOC: RAD 08:50
PROVIDERS: PCP Family Medicine; Visit Provider Physician Assistant Surgical
DX: S72.144A Nondisplaced intertrochanteric fracture of right femur, initial encounter for closed fracture (principal)
CPT/HCPCS: 73502

== ENCOUNTER 2024-06-22 07:42 | Outpatient (CLI) | payer MEDICARE, SELFPAY ==
[2024-06-22 08:32] LABS: Alanine Aminotransferase 21 U/L (12-78); Albumin/Globulin Ratio 1.7 (1.1-1.8); Alkaline Phosphatase 67 U/L (38-126); Aspartate Amino Transferase 23 U/L (14-36); Bilirubin,Total 1.5 mg/dl (0.2-1.3); Blood Urea Nitrogen 33 mg/dl (7-17); Calcium 9.3 mg/dl (8.4-10.2); Carbon Dioxide 27 mmol/L (22.0-30.0); Chloride 109 mmol/L (98-107); Cholesterol 243 mg/dl (140-200); Estimated Glomerular Filt Rate 39 ml/min (>60); GFR (African American) 47 ML/MIN (>60); Globulin 2.3 g/dL (1.3-3.2); Glucose 84 mg/dl (74-100); Total Protein,Serum 6.3 g/dl (6.3-8.2); Triglycerides 88 mg/dl (30-150); VLDL Cholesterol 18 mg/dL (0-40)
[2024-06-22 08:43] LABS: Direct LDL Cholesterol 87.54 mg/dL (100-129); HDL Cholesterol 119 mg/dl (40-60)
[2024-06-22 08:44] LABS: Sodium 137 mmol/L (136-145)
[2024-06-22 08:52] LABS: Basophils % 0.2 % (0.1-2.0); Eosinophils % 0.3 % (0.1-12.0); Lymphocytes # 4.3 K/mm3 (0.7-4.5); Lymphocytes % 45.7 % (10-50); Mean Corpuscular HGB Conc 32.5 g/dL (31.8-35.4); Mean Corpuscular Hemoglobin 31.3 pg (27.0-31.2); Mean Corpuscular Volume 96.2 fl (81-99); Mean Platelet Volume 9.2 fl (7.4-10.4); Monocytes # 0.7 K/mm3 (0.1-1.0); Monocytes % 7.3 % (1.7-9.3); Neutrophils # 4.4 K/mm3 (1.8-7.8); Neutrophils % 46.2 % (37.0-80.0); Platelet Count 334 K/mm3 (142-424); Red Blood Count 4.16 M/mm3 (4.20-5.40); Red Cell Distribution Width 14.8 % (11.5-17.5); White Blood Count 9.5 K/mm3 (4.8-10.8)
[2024-06-22 09:03] LABS: Thyroid Stimulating Hormone 6.28 uIU/mL (0.465-4.68)
== END 2024-06-22 23:59 | disposition home or self-care (01) ==
LOC: LAB 07:44
PROVIDERS: PCP Family Medicine; Visit Provider Family Medicine
DX: E03.9 Hypothyroidism, unspecified (principal); E78.5 Hyperlipidemia, unspecified; I10 Essential (primary) hypertension
CPT/HCPCS: 36415; 80053; 80061; 84443; 85025

== ENCOUNTER 2024-12-08 07:39 | Outpatient (CLI) | payer MEDICARE, SELFPAY ==
--- OUTSIDE RECORDS SUMMARY | 2024-07-04 10:30 | XMS_ITS ---
[facility] Organization [facility] Address [address] [facility] [address] [place] [id number] Care Team Providers Care Chief Of Vital Statistics Name Role Phone Erica Greene Primary Care Provider Allergies Allergen (clinical drug ingredient) Drug/Non Drug Allergy [...] Penicillin Unknown Drug Allergy Active Substance with 3-glwboid-8-methylg lutaryl-coenzyme A reductase inhibitor mechanism of action (substance) Statins elevated LFTs Drug Allergy Active Substance with sulfonamide structure and antibacterial mechanism of action (substance) Sulfa Antibiotics Unknown Drug Allergy Active Results Component Value Reference Range Notes Bone density Reviewed date:10/11/2024 11:12:46 PM Interpretation:pt declined Performing Lab: Notes/Report: pt declined Mammogram Reviewed date:10/11/2024 11:12:34 PM Interpretation:pt declined Performing Lab: Notes/Report: pt declined REASON FOR VISIT check up and Annual Wellness Visit, Needs bone density screening Medications Medication SIG (Take, Route, Frequency, Duration) Notes Start Date End Date Status Xarelto 10 MG 1 tablet with food Orally Once a day to 03/22 Active Vitamin B-12 50 MCG 1 tab(s) orally once a day Active Classics Rolling Walker - as directed 03/01/2024 Active Hospital Bed - 1 bed needed to alliviate pain, that a normal bed would not 03/01/2024 Active oxyCODONE-Acetaminophen 5-32 5 MG 1 tab(s) Orally every 4 hrs prn 03/02/2024 Active Synthroid 88 MCG 1 tab(s) Orally once daily Active Diphenoxylate-Atropine 2.5-0.025 MG 1-2 tab(s) orally four times a day as needed for nervous stomach 06/30/2024 Active Exforge 10-320 MG 1 tab(s) orally once a day Active Ezetimibe 10 MG 1 tab(s) orally once a day Active hydroCHLOROthiazide 12.5 MG 1 tablet in the morning Orally Once a day; Duration: 30 day(s) 05/05/2024 Active Vital Signs Blood pressure systolic 120 mm Hg 07/05/19 25 Blood pressure diastolic 76 mm Hg 025 Heart Rate 75 /min 07/04/2024 Height 60 in 07/04/2024 Weight 147.4 lbs 07/04/2024 BMI 28.78 kg/m2 07/04/2024 Encounters Encounter Location Date Provider Diagnosis [facility] [address] [facility] [address] [place] [address], [place] [phone] 07/04/2024 Erica Greene Adult general medica l examination Z00.00 ; HTN (hypertension) I10 ; Mixed hyperlipidemia E78.2 ; Acquired hypothyroidism E03.9 ; Irritable bowel syndrome with diarrhea K58.0 and BMI 28.0-28.9,adult Z68.28 Assessments Encounter Date Diagnosis (ICD Code) Assessment Notes Treatment Notes Treatment Clinical Notes Section Notes 07/04/2024 Adult general medical examination (ICD-10 - Z00.00) Patient instructed to return to office Annually for Annual Wellness Visits to include annual screenings of Pain assessment, Functional Ability assessment, Cognitive Ability assessment, Fall Risk assessment, Depression screening and Bladder control screening. 07/04/2024 HTN (hypertension) (ICD-10 - I10) 07/04/2024 Mixed hyperlipidemia (ICD-10 - E78.2) 07/04/2024 Acquired hypothyroidism (ICD-10 - E03.9) 07/04/2024 Irritable bowel syndrome with diarrhea (ICD-10 - K58.0) 07/04/2024 BMI 28.0-28.9,adult (ICD-10 - Z68.28) Plan Of Treatment Medication Medication Name Sig Start Date Stop Date Notes Synthroid 88 MCG 1 tab(s) Orally once daily Diphenoxylate-Atropine 2.5-0.025 MG 1-2 tab(s) orally four times a day as needed for nervous stomach 06/30/2024 Exforge 10-320 MG 1 tab(s) orally once a day Ezetimibe 10 MG 1 tab(s) orally once a day Treatment Notes Assessment Notes Adult general medical examination Patien t instructed to return to office Annually for Annual Wellness Visits to include annual screenings of Pain assessment, Functional Ability assessment, Cognitive Ability assessment, Fall Risk assessment, Depression screening and Bladder control screening. Next Appt Details Follow Up: 6 Months, Reason: Progress Notes * ASH DE LOS SANTOSOB:[birth year] (84 yo F)Acc No.[id number]:07/04/2024 Annual Wellness Visit Patient: MARKO BRINK Provider: Erica Greene M.D. :1940 A ge:84 Y S ex:Female Date:07/04/2024 Address:[address] [place] [address] [id number] Subjective: * Chief Complaints: * 1 . check up and Annual Wellness Visit. 2. Needs bone density screening. * HPI: H PI: Patient is here today for a scheduled check up and review of recent labs. C ardiology: Denies : Chest Pain. D enies : Short of Breath. D enies : Palpitations. Leg Edema m ore at the end of the day, goes down over night. * ROS: O PTHALMOLOGY: Negative for d enies vision issues. * Medical History: H TN, HLP, Hypothyroidism, Renal insufficiency, Polymyalgia rheumatica, Irritable bowel syndrome, OA, Severe DJD of knees. * Surgical History: G allbladder , appendectomy , cateract surgery on both eyes 01-31, Right hip fx and repair 01/2024. * Hospitalization/Major Diagno stic Procedure: s ee above , [facility] : Fx right intertrochanteric femur with ORIF with IMN; IBS; Fall; Presbycusis; HTN 02/12-02/16/2024. * Family History: F ather: 81 yrs. M other: 40 yrs. P aternal Grand Father: .?Paternal Grand Mother: . M aternal Grand Father: . M aternal Grand Mother: . 4 brother(s) , 3 sister(s) - healthy. 1 son(s) , 1 daughter(s) - healthy. . * Social History: C URRENT TOBACCO USE S moking Status: Patient does NOT smoke, Second hand smoke exposure: No. C affeine: yes, frequency:daily. Exercise: no. Home smoke detector use: yes. Marital Status: . New since last visit: none. Occupation: yes. Past smoking status: no, Smoking status: Does not smoke. Occup. exposure: none. Recreational drug use: no. Alcohol: no. Sexually active: yes. Travel ouside [place]: no. * Medications: T aking Ezetimibe 10 MG Tablet 1 tab(s) orally once a day , Taking Exforge 10-320 MG Tablet 1 tab(s) orally once a day , Taking Xarelto 10 MG Tablet 1 tablet with food Orally Once a day , Notes to Pharmacist: to 03/22, Taking Synthroid 75 MCG Tablet 1 tab(s) orally once daily , Taking Vitamin B-12 50 MCG Tablet 1 tab(s) orally once a day , Taking Classics Rolling Walker - Miscellaneous as directed , Taking Hospital Bed - - 1 bed needed to alliviate pain, that a normal bed would not , Taking oxyCODONE-Acetaminophen 5-325 MG Tablet 1 tab(s) Orally every 4 hrs prn , Taking hydroCHLOROthiazide 12.5 MG Tablet 1 tablet in the morning Orally Once a day , Taking Diphenoxylate-Atropine 2.5-0.025 MG Tablet 1-2 tab(s) orally four times a day as needed for nervous stomach , Medication List reviewed and reconciled with the patient * Allergies: P enicillin, Sulfa Antibiotics, Adacel: Rash at injection site (01/31), NSAIDs: renal insufficiency, Statins: elevated LFTs - Side Effects. Objective: * Vitals: W t:147.4, Temp:97.7, BP:120/76, HR:75, Nurse:faustino, Ht: 60, BMI:28.78. * Examination: G eneral Examination: General Appearance: N AD. Ambulates with a rollator walker. H eart: R SR. L ungs: c lear to auscultation. E xtremities: T race ankle edema. * Physical Examination: L ABS: See labs r eviewed with patient. TSH is slightly elevated. Renal function stable. Lipids satisfactory.. Assessment: * Assessment: 1. A dult general medical examination - Z00.00 (Primary) 2 . H TN (hypertension) - I10 3 . M ixed hyperlipidemia - E78.2 4 . A cquired hypothyroidism - E03.9 5 . I rritable bowel syndrome with diarrhea - K58.0 ? 6 . B IN 28.0-28.9,adult - Z68.28 Plan: * Treatment: 2. H TN (hypertension) Refill Exforge Tablet, 10-320 MG, 1 tab(s), orally, once a day, 90, Refills 1. 3. M ixed hyperlipidemia Refill Ezetimibe Tablet, 10 MG, 1 tab(s), orally, once a day, 90, Refills 1. 4. A cquired hypothyroidism Increase Synthroid Tablet, 88 MCG, 1 tab(s), Orally, once daily, 90, Refills 1. 5. I rritable bowel syndrome with diarrhea Continue Diphenoxylate-Atropine Tablet, 2.5-0.025 MG, 1-2 tab(s), orally, four times a day as needed for nervous stomach. * Imaging: * I maging: Bone density (Performed Date - 10/09/2024) p t declined ?Imaging: Mammogram (Performed Date - 10/09/2024)?pt declined* * declines * Procedure Codes: G 2211 Complex e/m visit add on, 1159F MED LIST DOCD IN RCRD, 1036F TOBACCO NON- USER, 3017F COLORECTAL CA SCREEN DOC REV, 3074F SYST BP LT 130 MM HG, 3078F DIAST BP < 80 MM HG * Preventive Medicine: Immunizations: P neumococcal r ecommended. I nfluenza u p to date. Screening / Special Tests: M ammogram R ecent history:12/24/2021, negative, declined in the past. C olonoscopy R ecent history:08/14/2015, polyps, repeat 2-3 years, excluded due to age. B one mineral Density R ecent history:01/23/2019, osteopenia, declined in the past, recommended. * Follow Up: 6 Months * Images: Billing Information: * Visit Code: 26481 Office Visit, Est Pt., Level 4. * Procedure Codes: G2211 Complex e/m visit add on. 1159F MED LIST DOCD IN RCRD. 1036F TOBACCO NON-USER. 3017F COLORECTAL CA SCREEN DOC REV. 3074F SYST BP LT 130 MM HG. 3078F DIAST BP < 80 MM HG. * Electronic signature of Erica Greene MD on 12/08/2024 at 07:42 AM EDT Sign off status: Pending * Provider: Erica Greene M.D. Date: 0 07/04/2024 Generated for John cho/Olivia/eTransmitting on: 0 12/08/2024 07:42 AM EDT History and Physical Notes * HPI (History of Present Illness) Category Sub-Category Detail Notes Category Not es Cardiology Short of Breath Chest Pain Palpitations Leg Edema more at the end of t he day, goes down over night HPI Patient is here today for a scheduled nathalia ck up and review of recent labs Physical Examination Category Sub-Category Detail Notes Section Note s LABS See labs reviewed with marichuy sweeney. TSH is slightly elevated. Renal function stable. Lipids satisfactory. Examination Category Sub-Category Detail Notes Category Not es General Examination Heart: RSR Lungs: clear to auscultatio n Extremities: Trace ankle edema General Appearance: NAD. Ambulates with a rollator walker
--- OUTSIDE RECORDS SUMMARY | 2024-12-05 06:11 | XMS_ITS ---
Author Organization [place] Address [address] [facility] [address] [facility] [address] [place] [id number] Care Team Providers Care Pullman Car Clerk Name Role Phone Erica Greene Primary Care Provider [phone] REASON FOR VISIT Message Encounters Encounter Location Date Provider Diagnosis [facility] [address] [facility] [address] [place] [phone] 12/05/2024 Erica Greene HTN (hypertension) I 10 ; Acquired hypothyroidism E03.9 ; Mixed hyperlipidemia E78.2 and Chronic renal insufficiency N18.9 Assessments Encounter Date Diagnosis (ICD Code) Assessment Notes Treatment Notes Treatment Clinical Notes Section Notes 12/05/2024 HTN (hypertension) (ICD-10 - I10) 12/05/2024 Acquired hypothyroidism (ICD-10 - E03.9) 12/05/2024 Mixed hyperlipidemia (ICD-10 - E78.2) 12/05/2024 Chronic renal insufficiency (ICD-10 - N18.9) Plan Of Treatment Pending Test Test Name Order Date H-TSH 12/05/2024 H-CBC 12/05/2024 H-Lipid Panel 12/05/2024 H-CMP 12/05/2024 Progress Notes * ASH DE LOS SANTOSOB:[birth year] (84 yo F)Acc No.[id number]:12/05/2024 Patient: MARKO BRINK :1940 A ge:84 Y S ex:Female Address[address] [address] [place] [address] Subjective: * Chief Complaints: * M essage * Medical History: * Surgical History: * Hospitalization/Major Diagno stic Procedure: * Medications: Objective: * Vitals: * Physical Examination: Assessment: * Assessment: 1. H TN (hypertension) - I10 2 . A cquired hypothyroidism - E03.9 ? 3 . M ixed hyperlipidemia - E78.2 4 . C hronic renal insufficiency - N18.9 Plan: * Treatment: 2. A cquired hypothyroidism L AB: H-TSH 3. M ixed hyperlipidemia L AB: H-Lipid Panel 4. C hronic renal insufficiency L AB: H-CMP * Procedure Codes: * true * Date: Generated for John cho/Olivia/Gensmitting on: 0 12/08/2024 07:42 AM EDT
--- OUTSIDE RECORDS SUMMARY | 2024-12-08 07:43 | XMS_ITS | Patient Health Record ---
[facility] [address] [place] [id number] Care Team Providers Care Taper Machine Name Role Phone Erica Greene Primary Care Provider Maria Ines Mcghee Unavailable [phone] Allergies Allergen (clinical drug ingredient) Drug/Non Drug [...] Penicillin Unknown Drug Allergy Active Substance with 6-qbpykxw-7-methylg lutaryl-coenzyme A reductase inhibitor mechanism of action (substance) Statins elevated LFTs Drug Allergy Active Substance with sulfonamide structure and antibacterial mechanism of action (substance) Sulfa Antibiotics Unknown Drug Allergy Active Results Component Value Reference Range Notes Bone density Reviewed date:10/11/2024 11:12:46 PM Interpretation:pt declined Performing Lab: Notes/Report: pt declined Mammogram Reviewed date:10/11/2024 11:12:34 PM Interpretation:pt declined Performing Lab: Notes/Report: pt declined H-TSH Reviewed date:07/06/2024 08:22:18 AM Interpretation:6.28 Performing Lab: Notes/Report: TSH 6.28 0.465-4.68 uIU/mL H-CBC Reviewed date:07/06/2024 08:22:18 AM Interpretation:rbc 4.16, mch 31.3 Performing Lab: Notes/Report: WBC 9.5 4.8-10.8 K/mm3 RBC 4.16 4.20-5.40 M/mm3 HGB 13.0 12.2-16.2 g/dL HCT 40.0 37.0-47.0 % MCV 96.2 81-99 fl MCH 31.3 27.0-31.2 pg MCHC 32.5 31.8-35.4 g/dL RDW 14.8 11.5-17.5 % PLT 334 142-424 K/mm3 MPV 9.2 7.4-10.4 fl NE% 46.2 37.0-80.0 % LY% 45.7 10-50 % MO% 7.3 1.7-9.3 % EO% 0.3 0.1-12.0 % BA% 0.2 0.1-2.0 % NE# 4.4 1.8-7.8 K/mm3 LY# 4.3 0.7-4.5 K/mm3 MO# 0.7 0.1-1.0 K/mm3 EO# 0.0 0.0-0.4 K/mm3 BA# 0.0 0-0.2 K/mm3 H-Lipid Panel Reviewed date:07/06/2024 08:22:18 AM Interpretation:chol 243, dldl 88, hdl 119 Performing Lab: Notes/Report: Patient Fasting? Y TRIG 88 30-150 mg/dl CHOL 243 140-200 mg/dl DLDL 87.54 100-129 mg/dL VLDL 18 0-40 mg/dL HDL 119 40-60 mg/dl CHLHDL 2.0 1-3.5 H-CMP Reviewed date:07/06/2024 08:22:18 AM Interpretation:cl 109, bun 33, Cr 1.3, gfr 39, bili 1.5 Performing Lab: Notes/Report: NA 137 136-145 mmol/L K 4.0 3.5-5.1 mmoL/L CL 109 98-107 mmol/L CO2 27 22.0-30.0 mmol/L GAP 5.0 5-15 mEq/L BUN 33 7-17 mg/dl CREATT 1.30 0.52-1.04 mg/dl GFRAA 47 >60 ML/MIN EGFR 39 >60 ml/min GLU 84 74-100 mg/dl CA 9.3 8.4-10.2 mg/dl BILIT 1.5 0.2-1.3 mg/dl AST 23 14-36 U/L ALT 21 12-78 U/L TP 6.3 6.3-8.2 g/dl ALB 4.0 3.5-5.0 g/dl GLOB 2.3 1.3-3.2 g/dL AGRATIO 1.7 1.1-1.8 ALP 67 38-126 U/L H-CMP Reviewed date:02/15/2024 10:57:57 AM Interpretation: Performing Lab: Notes/Report: NA 138 136-145 mmol/L K 3.5 3.5-5.1 mmoL/L CL 107 98-107 mmol/L CO2 32 22.0-30.0 mmol/L GAP 2.5 5-15 mEq/L BUN 16 7-17 mg/dl CREATT 1.00 0.52-1.04 mg/dl CRCLE 46 50-200 mL/min GFRAA 64 >60 ML/MIN EGFR 53 >60 ml/min GLU 102 74-100 mg/dl CA 8.1 8.4-10.2 mg/dl BILIT 1.9 0.2-1.3 mg/dl AST 128 14-36 U/L RECONFIRMATION ALT 189 12-78 U/L TP 5.3 6.3-8.2 g/dl ALB 3.0 3.5-5.0 g/dl GLOB 2.3 1.3-3.2 g/dL AGRATIO 1.3 1.1-1.8 ALP 139 38-126 U/L H-CBC Reviewed date:02/16/2024 12:21:03 PM Interpretation: Performing Lab: Notes/Report: WBC 11.2 4.8-10.8 K/mm3 RBC 3.42 4.20-5.40 M/mm3 HGB 11.0 12.2-16.2 g/dL HCT 33.2 37.0-47.0 % MCV 97.0 81-99 fl MCH 32.1 27.0-31.2 pg MCHC 33.1 31.8-35.4 g/dL RDW 15.6 11.5-17.5 % PLT 209 142-424 K/mm3 MPV 7.7 7.4-10.4 fl NE% 75.3 37.0-80.0 % LY% 16.2 10-50 % MO% 7.3 1.7-9.3 % EO% 0.9 0.1-12.0 % BA% 0.2 0.1-2.0 % NE# 8.4 1.8-7.8 K/mm3 LY# 1.8 0.7-4.5 K/mm3 MO# 0.8 0.1-1.0 K/mm3 EO# 0.1 0.0-0.4 K/mm3 BA# 0.0 0-0.2 K/mm3 H-CMP Reviewed date:02/16/2024 12:21:03 PM Interpretation: Performing Lab: Notes/Report: NA 133 136-145 mmol/L K 3.3 3.5-5.1 mmoL/L CL 102 98-107 mmol/L CO2 28 22.0-30.0 mmol/L GAP 6.3 5-15 mEq/L BUN 11 7-17 mg/dl Delta: 16 on CREATT 0.90 0.52-1.04 mg/dl CRCLE 46 50-200 mL/min GFRAA 72 >60 ML/MIN EGFR 60 >60 ml/min GLU 95 74-100 mg/dl CA 8.5 8.4-10.2 mg/dl BILIT 1.6 0.2-1.3 mg/dl AST 57 14-36 U/L Delta: 128 on ALT 122 12-78 U/L Delta: 189 on TP 5.7 6.3-8.2 g/dl ALB 3.0 3.5-5.0 g/dl GLOB 2.7 1.3-3.2 g/dL AGRATIO 1.1 1.1-1.8 ALP 149 38-126 U/L CMP Reviewed date:02/25/2024 01:54:52 PM Interpretation: Performing Lab: Notes/Report: CALCIUM 8.7 glucose 83 bun/creat 23/1.5 sodium 139 potassium 3.5 chloride 102 CO2 25 SGOT 21 SGPT 20 alk phos 96 Total Protein 5.9 Albumin 3.3 total bili 1.39 H-CMP Reviewed date:03/02/2024 08:47:25 AM Interpretation: Performing Lab: Notes/Report: NA 138 136-145 mmol/L K 3.4 3.5-5.1 mmoL/L CL 103 98-107 mmol/L CO2 31 22.0-30.0 mmol/L GAP 7.4 5-15 mEq/L BUN 17 7-17 mg/dl CREATT 1.20 0.52-1.04 mg/dl GFRAA 52 >60 ML/MIN EGFR 43 >60 ml/min GLU 115 74-100 mg/dl CA 8.4 8.4-10.2 mg/dl BILIT 1.1 0.2-1.3 mg/dl AST 22 14-36 U/L ALT 13 12-78 U/L TP 5.4 6.3-8.2 g/dl ALB 3.0 3.5-5.0 g/dl GLOB 2.4 1.3-3.2 g/dL AGRATIO 1.3 1.1-1.8 ALP 146 38-126 U/L Medications Medication SIG (Take, Route, Frequency, Duration) Notes Start Date End Date Status Synthroid 88 MCG 1 tab(s) Orally once daily Active Xarelto 10 MG 1 tablet with food [...] Orally every 4 hrs prn 03/02/2024 Active hydroCHLOROthiazide 12.5 MG 1 tablet in the morning Orally Once a day; Duration: 30 day(s) 05/05/2024 Active Immunizations Vaccine Route Administration Date Status Comme nts mJwrrrem-djcqjqjry-ushakih e pts. IM Intramuscular 01/09/2011 Administered xFluzone High Dose-private (65yr&older) Unknown 02/07/2024 Administered Tetanus Tdap-Adacel (over 7yrs) IM Intramuscular [...] Administered COVID 19 Moderna Unknown 08/04/2021 Administered Problems Problem Type SNOMED Code ICD Code Onset Dates Problem Status W/U Status Risk Notes Problem Insomnia (519545110) Insomnia (G47.00) Active confirmed Problem Hypertension (04757464) HTN (hypertension) (I10) Active confirmed Problem Chronic renal insufficiency (795110047) Chronic renal insufficiency (N18.9) Active confirmed Problem Irritable bowel syndrome (81576968) IBS (irritable bowel syndrome) (K58.9) Active confirmed Problem Osteopenia (682406365) Osteopenia (M85.80) Active confirmed Problem Arthritis (9746857) Arthritis (M19.90) Active confirmed Problem Mixed hyperlipidemia (052081453) Mixed hyperlipidemia (E78.2) Active confirmed Problem Irritable bowel syndrome with diarrhea (392217048) Irritable bowel syndrome with diarrhea (K58.0) Active confirmed Problem Acquired hypothyroidism (468285768) Acquired hypothyroidism (E03.9) Active confirmed Problem Primary osteoarthritis (818615476) 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) Active confirmed Problem Body mass index 30.00 to 34.99 (788799219580939) BMI 31.0-31.9,adult (Z68.31) Active confirmed Problem Presbycusis (63413966) Presbycusis of both ears (H91.13) Active confirmed Vital Signs Heart Rate 75 /min 07/04/2024 Respiratory Rate 18 /min 02/22/2024 Blood pressure diastolic 76 mm Hg 07/04/2024 Height 60 in 07/04/2024 Blood pressure systolic 120 mm Hg 07/04/2024 Weight 147.4 lbs 07/04/2024 BMI 28.78 kg/m2 07/04/2024 Encounters Encounter Location Date Provider Diagnosis [address] [place] [id number] 02/22/2024 Maria Ines Mcghee Irritable bowel synd yeimi with diarrhea K58.0 ; Acquired hypothyroidism E03.9 ; Encounter for postoperative care Z48.89 ; Mixed hyperlipidemia E78.2 ; Presbycusis of both ears H91.13 ; HTN (hypertension) I10 ; Nondisplaced intertrochanteric fracture of right femur, subsequent encounter for closed fracture with routine healing S72.144D ; Encounter for other specified surgical aftercare Z48.89 and Arthritis M19.90 [facility] [address] [place] [id number] [facility], [facility], with routine healing, subsequent encounter S72.001D ; HTN (hypertension) I10 and Chronic renal insufficiency N18.9 [facility] [address] [place] [id number] 07/04/2024 R [facility] Adult general medica l examination Z00.00 ; HTN (hypertension) I10 ; Mixed hyperlipidemia E78.2 ; Acquired hypothyroidism E03.9 ; Irritable bowel syndrome with diarrhea K58.0 and BMI 28.0-28.9,adult Z68.28 [facility] [address] [place] [id number] 03/01/2024 [facility] [address] [place] [id number] 03/02/2024 R [facility] Encounter for other specified surgical aftercare Z48.89 [facility] [address] [place], [place] [id number] 03/07/2024 R [facility] [address] [facility] [address] [place], [place] [id number] 05/05/2024 R [facility] [address] [place], [place] [id number] 05/29/2024 R [facility] [address] [place], [place] [id number] 06/19/2024 [facility] HTN (hypertension) I 10 ; Mixed hyperlipidemia E78.2 and Acquired hypothyroidism E03.9 [facility] [address] [facility] [address] [place], [place] [id number] 06/30/2024 R [facility] Irritable bowel synd yeimi with diarrhea K58.0 [facility] [address] [facility] [address] [place] [id number] 12/05/2024 R [facility] HTN (hypertension) I 10 ; Acquired hypothyroidism E03.9 ; Mixed hyperlipidemia E78.2 and Chronic renal insufficiency N18.9 Assessments Encounter Date Diagnosis (ICD Code) Assessment Notes Treatment Notes Treatment Clinical Notes Section Notes 02/22/2024 Irritable bowel syndrome with diarrhea (ICD-10 - K58.0) 02/22/2024 Acquired hypothyroidism (ICD-10 - E03.9) 03/09/2024 Hip fracture, right, closed, with routine healing, subsequent encounter (ICD-10 - S72.001D) 06/30/2024 Irritable bowel syndrome with diarrhea (ICD-10 - K58.0) 07/04/2024 HTN (hypertension) (ICD-10 - I10) 03/02/2024 Encounter for other specified surgical aftercare (ICD-10 - Z48.89) 03/09/2024 HTN (hypertension) (ICD-10 - I10) 07/04/2024 Adult general medica l examination (ICD-10 - Z00.00) Patient instructed to return to office Annually for Annual Wellness Visits to include annual screenings of Pain assessment, Functional Ability assessment, Cognitive Ability assessment, Fall Risk assessment, Depression screening and Bladder control screening. 12/05/2024 HTN (hypertension) (ICD-10 - I10) 12/05/2024 Acquired hypothyroidism (ICD-10 - E03.9) 03/09/2024 Chronic renal insufficiency (ICD-10 - N18.9) 07/04/2024 Mixed hyperlipidemia (ICD-10 - E78.2) 06/19/2024 HTN (hypertension) (ICD-10 - I10) 02/22/2024 Encounter for postoperative care (ICD-10 - Z48.89) continue with PT 02/22/2024 Mixed hyperlipidemia (ICD-10 - E78.2) 06/19/2024 Mixed hyperlipidemia (ICD-10 - E78.2) 07/04/2024 Acquired hypothyroidism (ICD-10 - E03.9) 12/05/2024 Mixed hyperlipidemia (ICD-10 - E78.2) 12/05/2024 Chronic renal insufficiency (ICD-10 - N18.9) 07/04/2024 Irritable bowel syndrome with diarrhea (ICD-10 - K58.0) 06/19/2024 Acquired hypothyroidism (ICD-10 - E03.9) 02/22/2024 Presbycusis of both ears (ICD-10 - H91.13) 02/22/2024 HTN (hypertension) (ICD-10 - I10) 07/04/2024 BMI 28.0-28.9,adult (ICD-10 - Z68.28) 02/22/2024 Nondisplaced intertrochanteric fracture of right femur, subsequent encounter for closed fracture with routine healing (ICD-10 - S72.144D) 02/22/2024 Encounter for other specified surgical aftercare (ICD-10 - Z48.89) 02/22/2024 Arthritis (ICD-10 - M19.90) 02/22/2024 Other pt6 plans to go home following rehab Plan Of Treatment Pending Test Test Name Order Date H-TSH 12/05/2024 H-CBC 12/05/2024 H-Lipid Panel 12/05/2024 H-CMP 12/05/2024 Insurance Providers Payer Name Payer Address Payer Phone Subscriber Number Group Number Insured Name Patient Relationship to Insured Coverage Start Date Coverage End Date [employer] [address] [address] [place], [place] [id number] [place] [address] [place] Self - patient is the insured Medical (General) History Medical History History ICD Code HTN HLP Hypothyroidism Renal insufficiency Polymyalgia rheumatica Irritable bowel syndrome OA Severe DJD of knees Surgical History Surgery Date(Month/Year) Gallbladder appendectomy cateract surgery on both eyes 01-31 Right hip fx and repair 01/2024 Hospitalization History Reason Date(Month/Year) see above [facility] : Fx right intertrochant venancio femur with ORIF with IMN; IBS; Fall; Presbycusis; HTN 02/12-02/16/2024
[2024-12-08 08:24] LABS: Hematocrit 35.9 % (37.0-47.0); Hemoglobin 11.6 g/dL (12.2-16.2); Immature Granulocytes % 0.2 %; Mean Corpuscular HGB Conc 32.3 g/dL (31.8-35.4); Mean Corpuscular Hemoglobin 30.9 pg (27.0-31.2); Mean Corpuscular Volume 95.5 fl (81-99); Nucleated Red Blood Cells % 0 %; Platelet Count 284 K/mm3 (142-424); Red Blood Count 3.76 M/mm3 (4.20-5.40); Red Cell Distribution Width-SD 50.5 fL; White Blood Count 8.3 K/mm3 (4.8-10.8)
[2024-12-08 12:29] LABS: Alanine Aminotransferase 15 U/L (12-78); Albumin Level 3.8 g/dl (3.5-5.0); Albumin/Globulin Ratio 1.7 (1.1-1.8); Alkaline Phosphatase 66 U/L (38-126); Anion Gap 7.8 mEq/L (5-15); Aspartate Amino Transferase 23 U/L (14-36); Bilirubin,Total 1.0 mg/dl (0.2-1.3); Blood Urea Nitrogen 17 mg/dl (7-17); Calcium 8.9 mg/dl (8.4-10.2); Carbon Dioxide 24 mmol/L (22.0-30.0); Chloride 113 mmol/L (98-107); Cholesterol 197 mg/dl (140-200); Creatinine,Serum 1.10 mg/dl (0.52-1.04); Estimated Glomerular Filt Rate 47 ml/min (>60); GFR (African American) 57 ML/MIN (>60); Globulin 2.3 g/dL (1.3-3.2); Glucose 80 mg/dl (74-100); HDL Cholesterol 90 mg/dl (40-60); Potassium 3.8 mmoL/L (3.5-5.1); Sodium 141 mmol/L (136-145); Total Protein,Serum 6.1 g/dl (6.3-8.2); Triglycerides 120 mg/dl (30-150)
[2024-12-08 12:59] LABS: Thyroid Stimulating Hormone 0.68 uIU/mL (0.465-4.68)
== END 2024-12-08 23:59 | disposition home or self-care (01) ==
LOC: LAB 07:41
PROVIDERS: PCP Family Medicine; Visit Provider Family Medicine
DX: I12.9 Hypertensive chronic kidney disease with stage 1 through stage 4 chronic kidney disease, or unspecified chronic kidney disease (principal); N18.9 Chronic kidney disease, unspecified; E78.2 Mixed hyperlipidemia; E03.9 Hypothyroidism, unspecified
CPT/HCPCS: 36415; 80053; 80061; 84443; 85025